=== PATIENT | female | born 1975 | race Caucasian/White ===

== ENCOUNTER → 2018-01-20 | Outpatient (CLI) | payer BC ==
[~2018-01-20] MED LIST: ACHD5005 PO; CRS350T; CYCL10TA9 PO; LEVO125T6 PO; LEVO150T6 PO; NAPR-243 PO; TRM50T PO; [UNRECOGNIZED DRUG - CODE] PO
--- NOTE | 2018-01-20 11:45 | Diagnostic Imaging Report ---
INDICATION: Right upper quadrant abdominal pain. Gallbladder sonography is performed in the routine fashion. The liver shows normal echogenicity with no focal lesions. Portal vein is patent with flow towards the liver in the normal direction. The gallbladder contains a large 2.3 cm nonmobile stone. There is moderate gallbladder wall thickening with some sludge in the gallbladder. Common duct measured 4.9 mm. Pancreas was unremarkable to the extent seen. The right kidney was normal and measured 11.0 cm in length. There is no ascites. Sonographic Shrestha sign was reported negative. IMPRESSION: Large non-mobile stone in the gallbladder with associated gallbladder wall thickening. There was no biliary dilatation. If there is clinical suspicion for acute cholecystitis, consider nuclear hepatobiliary study as clinically warranted. Dictated by: Dictated on workstation # [id number]
== END ==
LOC: RAD 10:12
PROVIDERS: ATTEND Nurse Practitioner Community Health
DX: K80.20 Calculus of gallbladder without cholecystitis without obstruction (principal); K82.8 Other specified diseases of gallbladder
CPT/HCPCS: 76705

== ENCOUNTER → 2018-01-20 | Outpatient (CLI) | payer BC | END | disposition home or self-care (01) | LOC: PREOP 15:54 | PROVIDERS: ATTEND Surgery | DX: Z01.818 Encounter for other preprocedural examination (principal) ==

== ENCOUNTER 2018-01-21 08:49 | Day surgery (SDC) | payer BC ==
[~2018-01-21] VITALS: Ht 165.1 cm; Wt 50.3 kg
[~2018-01-21 08:49] MED LIST changes: -ACHD5005 PO; -CYCL10TA9 PO; -LEVO150T6 PO; -[UNRECOGNIZED DRUG - CODE] PO
--- NOTE | 2018-01-21 09:00 | Progress Note-Pre Operative ---
Pre-Operative Progress Note H&P Reviewed The H&P was reviewed, patient examined and no changes noted. Date Seen by Provider: Jan 21, 2018 Time Seen by Provider: 08:25 Date H&P Reviewed: Jan 21, 2018 Time H&P Reviewed: 09:00 Pre-Operative Diagnosis: Gallstone with acute cholecystitis KYLE SINGLETON MD Jan 21, 2018 09:00
[2018-01-21 09:15] VITALS: BP 98/64
[2018-01-21] MEDS: LACTATED RINGERS 1,000 ML IV PRN ×3 (09:30→13:15)
--- OUTSIDE RECORDS SUMMARY | 2018-01-21 09:32 | XMS REPORT ---
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 Name Role Phone ENRIQUETA CHRISTY Unavailable PROBLEMS Type Condition ICD9-CM Code SHG86-QH Code Onset Dates Condition Status SNOMED Code Problem Other chronic pain G89.29 Active 05240756 Problem Neuropathy G62.9 Active 153015572 Problem Weight loss R63.4 Active 937505791 Problem Hypothyroid E03.9 Active 99359288 Problem Postablative hypothyroidism E89.0 Active 682064019 Problem Financial problems Z59.8 Active 940077135 ALLERGIES No Information ENCOUNTERS Encounter Location Date Diagnosis [place] [address] [address] Jun, Postablative hypothyroidism E89.0 [place] [address] [address] 28 May, 2017 Postablative hypothyroidism E89.0 ; Screening, lipid Z13.220 ; Neuropathy G62.9 ; Radiculopathy affecting upper extremity M54.10 ; Low back pain M54.5 and Other chronic pain G89.29 [place] [address] [place] [id number] [place] [address]- [address] Oct, Hypothyroid E03.9 ; Ganglion cyst of right foot M67.471 and Encounter for screening mammogram for breast cancer Z12.31 [place] [address] [address]- [address] Sep, Postablative hypothyroidism E89.0 [place] [address] [place] [id number] [place] [address]- 5502 Sep, Hypothyroid E03.9 [place] [address] [place] [id number] [place] [address] 75497- 9704 Jun, Postablative hypothyroidism E89.0 [facility] [address] [place] [id number] [place] [address] 10930- 6261 Jun, [facility] [address] [place] [id number] [place] [address] 80134- 4436 Jun, Hypothyroid E03.9 [facility] [address] [place] [id number] [place] [address] 9[address]77- 0198 Jun, Postablative hypothyroidism E89.0 [facility] [address] [place] [id number] [place] [address] 44016- 6891 Mar, [facility] [address] [place] [id number] [place] [address] 94719- 2289 Mar, [facility] [address] [place] [id number] [place] [address] 61497- 5258 Mar, Hypothyroid E03.9 [facility] [address] [place] [id number] [place] [address] 74[address]- 1490 Dec, [facility] [address] [place] [id number] [place] [address] -0139 Nov, Food poisoning, accidental or unintentional, initial encounter T62.91XA [facility] [address] [place] [id number] [place] [address] 15825- 9431 Nov, [facility] [address] [place] [id number] [place] [address] 35020- 2207 Oct, Hypothyroid E03.9 ; Weight loss R63.4 and Financial problems Z59.8 [facility] [address] [place] [id number] [place] [address]64- 8192 Jul, Gastroenteritis K52.9 [facility] [address] [place] [id number] [place] [address] 66029- 1225 Apr, Hypothyroid E03.9 [facility] [address] [place] [address]- [address] 14 Apr, 2015 Postablative hypothyroidism E89.0 and Upper respiratory infection J06.9 [facility] [address] [address]- 113[address] Jan, [facility] [address] [address]- 2602 Jan, [facility] [address] 25334- 2733 Dec, [facility] [address] [address]- 2441 Dec, Cannabis abuse 305.20 and Major depression, recurrent 296.30 [facility] [address] [address]- [address] Dec, Fatigue 780.79 ; Weakness 780.79 ; Hoarseness of voice 784.42 ; Shortness of breath 786.05 ; Hypothyroid 244.9 ; Cervicalgia 723.1 ; Depression 311 ; Insomnia 780.52 and Hard of hearing 389.9 [facility] [address] [place] [id number] [place] [address]129- 2009 Jul, [facility] [address] 0[address]- 1068 Jul, [facility] [address] [place] [id number] [place] [address] 29302- 0804 Mar, [facility] [address] [place] [id number] [place] [address] 60348- 5228 Mar, [facility] [address] [address]- 7948 Jan, [facility] [address] 8[address]- 1667 Jan, [facility] [address] [place] [id number] [place] [address] 27402- 3321 Jan, [facility] [address] [place] [address]- 7417 Jan, [facility] [place] [facility] [address] [id number] [place] [address]- 2922 Dec, [facility] [place] [facility] [address] [id number] [place] [address]- 5743 Dec, [facility] [place] [facility] [address] [id number] [place] [address]- 5083 Dec, [facility] [place] [facility] [address] [id number] [place] [address]- 1461 Dec, [facility] [place] [facility] [address] [id number] [place] [address]- 4984 Nov, [facility] [place] [facility] [address] [id number] [place] [address]- 9046 Nov, [facility] [place] [facility] [address] [id number] [place] [address]- 8248 Nov, [facility] [place] [facility] [address] [id number] [place] [address]- 6404 Nov, [facility] [place] [facility] [address] [id number] [place] [address]- 2317 Nov, [facility] [place] [facility] [address] [id number] [place] [address]- 0925 Oct, [facility] [place] [facility] [address] [id number] [place] [address]- 9733 Oct, [facility] [place] [facility] [address] [id number] [place] [address]- 8290 Oct, [facility] [place] [facility] [address] [id number] [place] [address]- 2451 Oct, [facility] [place] [facility] [address] [id number] [place] [address]- 7537 Oct, [facility] [place] [facility] [address] [id number] [place] [address]- 0692 Oct, [facility] [place] [facility] [address] [id number] [place] [address]- 4954 Sep, [facility] [place] [facility] [address] [id number] [place] [address]- 7031 Sep, [facility] [place] [facility] [address] [id number] [place] [address]- 4273 Sep, [facility] [place] [facility] [address] [id number] [place] [address]- 5298 Sep, [facility] [place] [facility] [address] [id number] [place] [address]- 1475 August, [facility] [place] [facility] [address] [id number] [place] [address]- 8596 August, [facility] [place] [facility] [address] [id number] [place] [address]- 7816 Jul, [facility] [place] [facility] [address] [id number] [place] [address]- 5918 Jul, [facility] [place] [facility] [address] [id number] [place] [address]- 9914 Jul, [facility] [place] [facility] [address] [id number] [place] [address]- 7765 Jul, [facility] [place] [facility] [address] [id number] [place] [address]- 9942 Jul, [facility] [place] [facility] [address] [id number] [place] [address]- 4545 Jun, [facility] [place] [facility] [address] [id number] [place] [address]- 8609 Jun, [facility] [place] [facility] [address] [id number] [place] [address]- 9915 May, [facility] [place] [facility] [address] [id number] [place] [address]- 5859 May, [facility] [place] [facility] [address] [id number] [place] [address]- 9936 May, [facility] [place] [facility] [address] [id number] [place] [address]- 5327 May, [facility] [place] [facility] [address] [id number] [place] [address] Apr, [facility] [place] [facility] [address] [id number] [place] [address]- 7173 Apr, [facility] [place] [facility] [address] [id number] [place] [address]- 2841 Apr, [facility] [place] [facility] [address] [id number] [place] [address]- 1474 Apr, [facility] [place] [facility] [address] [id number] [place] [address]- 4370 Apr, [facility] [place] [facility] [address] [id number] [place] [address]- 7338 Apr, [facility] [place] [facility] [address] [id number] [place] [address]- 5386 Mar, [facility] [place] [facility] [address] [id number] [place] [address]- 9290 Mar, [facility] [place] [facility] [address] [facility] [id number] [place] [address]- 9586 Mar, [facility] [place] [facility] [address] [id number], [place] [address]- 4784 Mar, [facility] [place] [facility] [address] [id number], [place] [address]- 8662 Jan, [facility] [place] [facility] [address] [id number], [place] [address]- 3407 Jan, [facility] [place] [facility] [address] [id number], [place] [address]- 4561 Jan, [facility] [place] [facility] [address] [facility] [id number] [place] [address]- 5914 Jan, [facility] [place] [facility] [address] [id number] [place] [address]- 9805 Dec, [facility] [place] [facility] [address] [id number] [place] [address]- 0866 Dec, [facility] [place] [facility] [address] [id number] [place] [address]- 3056 Nov, [facility] [place] [facility] [address] [id number] [place] [address]- 5988 Nov, [facility] [place] [facility] [address] [id number] [place] [address]- 0026 Nov, [facility] [place] [facility] [address] [id number] [place] [address]- 4603 Nov, [facility] [place] [facility] [address] [id number] [place] [address]- 1516 Nov, [facility] [place] [facility] [address] [id number] [place] [address]- 2487 Nov, [facility] [place] [facility] [address] [id number] [place] [address]- 3458 Nov, [facility] [place] [facility] [address] [id number] [place] [address]- 8889 Nov, [facility] [place] [facility] [address] [id number] [place] [address]- 7680 Oct, [facility] [place] [facility] [address] [id number] [place] [address]- 0924 Oct, [facility] [place] [facility] [address] [id number] [place] [address]- 3788 Sep, [facility] [place] [facility] [address] [id number] [place] [address]- 3907 Sep, [facility] [place] [facility] [address] [id number] [place] [address]- 5615 August, [facility] [place] [facility] [address] [id number] [place] [address]- 8239 August, [facility] [address] [id number] [place] [address]- 6396 Jun, [facility] [place] [facility] [address] [id number] [place] [address]- 2924 Jun, [facility] [place] [facility] [address] [id number] [place] [address]- 0682 Jun, [facility] [place] [facility] [address] [id number] [place] [address]- 8240 Jun, [facility] [address] [id number] [place] [address]- 0409 May, [facility] [place] [facility] [address] [id number] [place] [address]- 2916 May, [facility] [address] [id number] [place] [address]- 8645 Apr, [facility] [place] [facility] [address] [id number] [place] [address]- 3727 Apr, [facility] [address] [id number] [place] [address]- 7066 Apr, [facility] [address] [id number] [place] [address]- 5057 Mar, [facility] [place] [facility] [address] [id number] [place] [address]- 7441 Mar, [facility] [place] [facility] [address] [id number], [place] [address]- 2339 Mar, [facility] [place] [facility] [address] [id number] [place] [address]- 4988 Mar, [facility] [place] [facility] [address] [id number] [place] [address]- 1067 Mar, [facility] [place] [facility] [address] [id number] [place] [address]- 5229 Mar, [facility] [place] [facility] [address] [id number] [place] [address]- 6720 Feb, [facility] [place] [facility] [address] [id number] [place] [address]- 8494 Feb, [facility] [place] [facility] [address] [id number] [place] [address]- 1933 Feb, [facility] [place] [facility] [address] [id number] [place] [address]- 7073 Feb, [facility] [place] [facility] [address] [id number] [place] [address]- 3858 Feb, [facility] [place] [facility] [address] [id number] [place] [address]- 7918 Feb, [facility] [place] [facility] [address] [id number] [place] [address]- 8927 Feb, [facility] [place] [facility] [address] [id number] [place] [address]- 4457 Feb, [facility] [place] [facility] [address] [id number] [place] [address]- 6268 Feb, [facility] [place] [facility] [address] [id number] [place] [address]- 5501 Feb, [facility] [place] [facility] [address] [facility] [id number] [place] [address]- 8682 Feb, [facility] [place] [facility] [address] [id number] [place] [address]- 0787 Feb, [facility] [place] [facility] [address] [id number], [place] [address]- 8456 Jan, [facility] [place] [facility] [address] [id number] [place] [address]- 4077 Jan, [facility] [place] [facility] [address] [facility] [id number] [place] [address]- 2444 Sep, [facility] [place] [facility] [address] [id number] [place] [address]- 3865 August, [facility] [place] [facility] [address] [id number] [place] [address]- 9270 August, [facility] [address] [id number] [place] [address]- 8257 August, [facility] [address] [id number] [place] [address]- 3956 August, [facility] [address] [id number] [place] [address]- 5384 August, [facility] [address] [id number] [place] [address]- 0882 August, [facility] [address] [id number] [place] [address]- 0680 August, [facility] [address] [id number] [place] [address]- 0997 August, [facility] [address] [id number] [place] [address]- 2642 August, [facility] [address] [id number] [place] [address]- 5804 August, [facility] [address] [id number] [place] [address]- 8804 Jul, [facility] [address] [id number] [place] [address]- 9208 May, [facility] [address] [id number] [place] [address]- 2953 Apr, [facility] [address] [id number] [place] [address]- 3491 Apr, [facility] [address] [id number] [place] [address]- 0116 Mar, [facility] [address] [id number] [place] [address]- 2729 Feb, [facility] [address] [id number], [place] [address]- 2546 Feb, [facility] [address] [place] [address] [id number], [place] [address]- 2546 Jan, [facility] [id number], [place] [address]- 2546 May, [facility] [id number], [place] [address]- 2546 Feb, [facility] [id number], [place] [address]- 2546 Mar, [facility] [id number], [place] [address]- 2546 Mar, [facility] [id number], [place] [address]- 2546 Jul, [facility] [id number], [place] [address]- 2546 Jun, IMMUNIZATIONS No Known Immunizations SOCIAL HISTORY Never Assessed REASON FOR VISIT Refill request PLAN OF CARE VITAL SIGNS MEDICATIONS Medication Instructions Dosage Frequency Start Date End Date Duration Status Levothyroxine Sodium 150 MCG Orally Once a day 1 tablet on an empty stomach in the morning 24h Mar, 90 days Active RESULTS No Results PROCEDURES No Known procedures INSTRUCTIONS MEDICATIONS ADMINISTERED No Known Medications MEDICAL (GENERAL) HISTORY Type Description Date Medical History Herpes of left eye Medical History Weight loss 40 pounds 2011 unintentional Medical History hypothyroid Medical History anxiety and depression Medical History C5 and C6 herniated cervical disc Surgical History Tubal ligation Surgical History C6 and C7 titanium plate Surgical History Neck fusion Surgical History Esophagogastrudoduenscopy 04/16/2012 mild gastritis Surgical History Colonscopy 04/26/[address] Bonilla Hospitalization History surgery
--- OUTSIDE RECORDS SUMMARY | 2018-01-21 09:33 | XMS REPORT ---
Author Author ENRIQUETA CHRISTY Organization [facility] Address [address] [place] [address] Care Team Providers Care Cell Room Operator Name Role Phone ENRIQUETA CHRISTY Unavailable PROBLEMS Type Condition ICD9-CM Code USO42-YJ Code Onset Dates Condition Status SNOMED Code Problem Other chronic pain G89.29 Active 52327017 Problem Neuropathy G62.9 Active 614823810 Problem Weight loss R63.4 Active 531768674 Problem Hypothyroid E03.9 Active 23137519 Problem Postablative hypothyroidism E89.0 Active 721924942 Problem Financial problems Z59.8 Active 096638814 ALLERGIES Substance Reaction Event Type Date Status Trazodone HCl jittery Drug Allergy Oct, Active ENCOUNTERS Encounter Location Date Diagnosis [place] [id number] [place] [address] 67641- 0849 Jun, Postablative hypothyroidism E89.0 [place] [address] [place] [address] 35539- 1588 May, Postablative hypothyroidism E89.0 ; Screening, lipid Z13.220 ; Neuropathy G62.9 ; Radiculopathy affecting upper extremity M54.10 ; Low back pain M54.5 and Other chronic pain G89.29 [facility] [id number] [place] [address] 16304- 3750 Oct, Hypothyroid E03.9 ; Ganglion cyst of right foot M67.471 and Encounter for screening mammogram for breast cancer Z12.31 [place] [address] [place] [address] 10583- 3684 Sep, Postablative hypothyroidism E89.0 [place] [address] [place] [id number] [place] [address] 72667- 7630 Sep, Hypothyroid E03.9 [facility] [address] [place] [id number] [place] [address] 95396- 7747 Jun, Postablative hypothyroidism E89.0 [facility] [address] [place] [id number] [place] [address] 58154- 2733 Jun, [facility] [address] [place] [id number] [place] [address] 36289- 6332 Jun, Hypothyroid E03.9 [facility] [address] [place] [id number] [place] [address] 18567- 7580 Jun, Postablative hypothyroidism E89.0 [facility] [address] [place] [id number] [place] [address] 05625- 4507 Mar, [facility] [address] [place] [address] [id number] [place] [address] 87218- 4206 Mar, [facility] [address] [place] [id number] [place] [address] 21554- 5724 Mar, Hypothyroid E03.9 [facility] [address] [place] [id number] [place] [address] 10117- 1707 Dec, [facility] [address] [place] [address] [id number] [place] [address] 59235 -0124 Nov, Food poisoning, accidental or unintentional, initial encounter T62.91XA [facility] [address] [place] [id number] [place] [address] 81409- 0158 Nov, [facility] [address] [place] [id number] [place] [address] 39801- 9288 Oct, Hypothyroid E03.9 ; Weight loss R63.4 and Financial problems Z59.8 [facility] [address] [place] [id number] [place] [address] 54002- 9758 Jul, Gastroenteritis K52.9 [facility] [address] [place] [id number] [place] [address] 88272- 6333 Apr, Hypothyroid E03.9 [facility] [address] [place] [id number] [place] [address] 38496- 4734 14 Apr, 2015 Postablative hypothyroidism E89.0 and Upper respiratory infection J06.9 [facility] [address] [place] [id number] [place] [address] 86133- 7367 Jan, [facility] [address] 28117- 8021 Jan, [facility] [address] [place] [id number] [place] [address] 27035- 5210 Dec, [facility] [address] 54108- 4381 Dec, Cannabis abuse 305.20 and Major depression, recurrent 296.30 [facility] [address] [place] [id number] [place] [address] 20819- 3657 Dec, Fatigue 780.79 ; Weakness 780.79 ; Hoarseness of voice 784.42 ; Shortness of breath 786.05 ; Hypothyroid 244.9 ; Cervicalgia 723.1 ; Depression 311 ; Insomnia 780.52 and Hard of hearing 389.9 [facility] [address] [place] [id number] [place] [address] 50687- 8443 Jul, [facility] [address] [place] [id number] [place] [address] 87209- 3550 Jul, [facility] [address] [place] [id number] [place] [address] 18274- 5492 Mar, [facility] [address] [place] [id number] [place] [address] 28369- 0156 Mar, [facility] [address] 27939- 6384 Jan, [facility] [address] [place] [id number] [place] [address] 39915- 7888 Jan, [facility] [address] [place] [id number] [place] [address] 48991- 0575 Jan, [facility] [place] [facility] [address] [id number] [place] [address]- 3964 Jan, [facility] [place] [facility] [address] [id number] [place] [address]- 9489 Dec, [facility] [place] [facility] [address] [id number] [place] [address]- 8942 Dec, [facility] [place] [facility] [address] [id number] [place] [address]- 6754 Dec, [facility] [place] [facility] [address] [id number] [place] [address]- 6854 Dec, [facility] [place] [facility] [address] [id number] [place] [address]- 8763 Nov, [facility] [place] [facility] [address] [id number] [place] [address]- 4181 Nov, [facility] [place] [facility] [address] [id number] [place] [address]- 0255 Nov, [facility] [place] [facility] [address] [id number] [place] [address]- 3926 Nov, [facility] [place] [facility] [address] [id number] [place] [address]- 0219 Nov, [facility] [place] [facility] [address] [id number] [place] [address]- 9811 Oct, [facility] [place] [facility] [address] [id number] [place] [address]- 0428 Oct, [facility] [place] [facility] [address] [id number] [place] [address]- 0339 Oct, [facility] [place] [facility] [address] [id number] [place] [address]- 2335 Oct, [facility] [place] [facility] [address] [id number] [place] 8235 Oct, [facility] [place] [facility] [address] [id number] [place] [address]- 8180 Oct, [facility] [place] [facility] [address] [id number] [place] [address]- 4707 Sep, [facility] [place] [facility] [address] [id number] [place] [address]- 7907 Sep, [facility] [place] [facility] [address] [id number] [place] [address]- 6910 Sep, [facility] [place] [facility] [address] [id number] [place] [address]- 2044 Sep, [facility] [place] [facility] [address] [id number] [place] [address]- 5178 August, [facility] [place] [facility] [address] [id number] [place] [address]- 1863 August, [facility] [place] [facility] [address] [id number] [place] [address]- 8106 Jul, [facility] [place] [facility] [address] [id number] [place] [address]- 7404 Jul, [facility] [place] [facility] [address] [id number] [place] [address]- 4376 Jul, [facility] [place] [facility] [address] [id number] [place] [address]- 8695 Jul, [facility] [place] [facility] [address] [id number] [place] [address]- 3487 Jul, [facility] [place] [facility] [address] [id number] [place] [address]- 3889 Jun, [facility] [place] [facility] [address] [id number] [place] [address]- 3711 Jun, [facility] [place] [facility] [address] [id number] [place] [address]- 8965 May, [facility] [place] [facility] [address] [id number] [place] [address]- 4991 May, [facility] [place] [facility] [address] [id number] [place] [address]- 1843 May, [facility] [place] [facility] [address] [id number] [place] [address]- 7592 May, [facility] [place] [facility] [address] [id number] [place] [address]- 5998 Apr, [facility] [place] [facility] [address] [id number] [place] [address]- 5213 Apr, [facility] [place] [facility] [address] [id number] [place] [address]- 6541 Apr, [facility] [place] [facility] [address] [id number] [place] [address]- 9799 Apr, [facility] [place] [facility] [address] [facility] [id number] [place] [address]- 6058 Apr, [facility] [place] [facility] [address] [id number] [place] [address]- 4063 Apr, [facility] [place] [facility] [address] [id number] [place] [address]- 5822 Mar, [facility] [place] [facility] [address] [id number] [place] [address]- 8384 Mar, [facility] [place] [facility] [address] [facility] [id number] [place] [address]- 4350 Mar, [facility] [place] [facility] [address] [id number] [address]- 7798 Mar, [facility] [place] [facility] [address] [id number] [place] [address]- 3092 Jan, [facility] [place] [facility] [address] [id number] [place] [address]- 4477 Jan, [facility] [place] [facility] [address] [id number] [place] [address]- 2825 Jan, [facility] [place] [facility] [address] [id number] [address]- 1730 Jan, [facility] [place] [facility] [address] [id number] [place] [address]- 8574 Dec, [facility] [place] [facility] [address] [id number] [place] [address]- 8096 Dec, [facility] [place] [facility] [address] [id number] [place] [address]- 2043 Nov, [facility] [place] [facility] [address] [id number] [place] [address]- 7972 Nov, [facility] [place] [facility] [address] [id number] [place] [address]- 3364 Nov, [facility] [place] [facility] [address] [id number] [place] [address]- 6545 Nov, [facility] [place] [facility] [address] [id number] [place] [address]- 6697 Nov, [facility] [place] [facility] [address] [id number] [place] [address]- 0885 Nov, [facility] [place] [facility] [address] [id number] [place] [address]- 5512 Nov, [facility] [place] [facility] [address] [id number] [place] [address]- 0285 Nov, [facility] [place] [facility] [address] [id number] [place] [address]- 5569 Oct, [facility] [place] [facility] [address] [id number] [place] [address]- 6592 Oct, [facility] [place] [facility] [address] [id number] [place] [address]- 5052 Sep, [facility] [place] [facility] [address] [id number] [place] [address]- 9558 Sep, [facility] [place] [facility] [address] [id number] [place] [address]- 2510 August, [facility] [place] [facility] [address] [id number] [place] [address]- 2546 August, [facility] [address] [id number] [place] [address]- 9746 Jun, [facility] [address] [id number] [place] [address]- 2546 Jun, [facility] [address] [id number] [place] [address] 2546 Jun, [facility] [address] [id number] [place] [address]- 2546 Jun, [facility] [address] [id number] [place] [address]- 4166 May, [facility] [address] [id number] [place] [address]- 2546 May, [facility] [address] [id number] [place] [address]- 2232 Apr, [facility] [address] [id number] [place] [address]- 9183 Apr, [facility] [address] [id number] [place] [address]- 0276 Apr, [facility] [address] [id number] [place] [address]- 5386 Mar, [facility] [address] [id number] [place] [address]- 2546 Mar, [facility] [address] [id number] [place] [address]- 2546 Mar, [facility] [place] [facility] [address] [id number] [place] [address]- 2546 Mar, [facility] [address] [id number] [place] [address]- 2546 Mar, [facility] [address] [id number] [place] [address]- 3498 Mar, [facility] [place] [facility] [address] [id number] [place] [address]- 4729 Feb, [facility] [place] [facility] [address] [id number] [place] [address]- 7520 Feb, [facility] [place] [facility] [address] [id number] [place] [address]- 0598 Feb, [facility] [place] [facility] [address] [id number] [place] [address]- 0610 Feb, [facility] [place] [facility] [address] [id number] [place] [address]- 2581 Feb, [facility] [place] [facility] [address] [id number] [place] [address]- 6392 Feb, [facility] [place] [facility] [address] [facility] [id number] [place] [address]- 2377 Feb, [facility] [place] [facility] [address] [id number] [address]- 7356 Feb, [facility] [place] [facility] [address] [id number] [place] [address]- 4136 Feb, [facility] [place] [facility] [address] [id number][place] [address]- 7279 Feb, [facility] [place] [facility] [address] [id number][place] [address]- 7641 Feb, [facility] [place] [facility] [address] [id number], [place] [address]- 7474 Feb, [facility] [place] [facility] [address] [id number][place] [address]- 2410 Jan, [facility] [place] [facility] [address] [id number][place] [address]- 5499 Jan, [facility] [place] [facility] [address] [facility] [id number][place] [address]- 3662 Sep, [facility] [place] [facility] [address] [id number] [place] [address]- 3285 August, [facility] [address] [id number] [place] [address]- 5303 August, [facility] [place] [facility] [address] [id number] [place] [address]- 2235 August, [facility] [address] [id number] [place] [address]- 5306 August, [facility] [place] [facility] [address] [id number] [place] [address]- 0156 August, [facility] [address] [id number] [place] [address]- 5537 August, [facility] [place] [facility] [address] [id number] [place] [address]- 5586 August, [facility] [address] [id number] [place] [address]- 6027 August, [facility] [place] [facility] [address] [id number] [place] [address]- 1400 August, [facility] [place] [facility] [address] [id number] [place] [address]- 3692 August, [facility] [address] [id number] [place] [address]- 7400 Jul, [facility] [place] [facility] [address] [id number] [place] [address]- 8656 May, [facility] [place] [facility] [address] [id number] [place] [address]- 4209 Apr, [facility] [place] [facility] [address] [id number] [place] [address]- 9853 Apr, [facility] [place] [facility] [address] [id number] [place] [address]- 1886 Mar, [facility] [place] [facility] [address] [id number] [place] [address]- 9806 Feb, [facility] [address] [id number] [address]- 2546 Feb, [facility] [id number] [place] [address] 22366- 2546 Jan, [facility] [address] [address]- 2546 May, [facility] [address] [place] [id number] [place] [address] 62793- 2546 Feb, [facility] [address] [place] [id number] [place] [address] 87274- 2546 Mar, [place] [address] [place] [id number] [place] [address] 04141- 2546 Mar, [facility] [address] [id number] [place] [address] 88253- 2546 Jul, [facility] [address] [place] [address] 92050- 2546 Jun, IMMUNIZATIONS No Known Immunizations SOCIAL HISTORY Never Assessed REASON FOR VISIT 3 month follow up on thyroid. , Pt has a knot on the bottom of her right foot. , pt thinks she has some sort of stomach issue if she eats approx 1 hr before bed. She will often times vomit to get relieved. MAIRA Connelly PLAN OF CARE Activity Details Follow Up 6 Months Reason:hypothyroid VITAL SIGNS Height 65 in 2016-11-03 Weight 115.6 lbs 2016-11-03 Temperature 98.4 degrees Fahrenheit 2016-11-03 Heart Rate 60 bpm 2016-11-03 Respiratory Rate 18 2016-11-03 BMI 19.23 kg/m2 2016-11-03 Blood pressure systolic 116 mmHg 2016-11-03 Blood pressure diastolic 80 mmHg 2016-11-03 MEDICATIONS Medication Instructions Dosage Frequency Start Date End Date Duration Status Levothyroxine Sodium 150 MCG Orally Once a day 1 tablet on an empty stomach in the morning 24h 30 Mar, 2016 90 days Active Flonase 50 MCG/DOSE Nasally 2 times a day 1 spray in each nostril 12h 29 Dec, 2014 30 day(s) Active Cyclobenzaprine HCl 10 MG Orally Once a day 1 tablet at bedtime for muscle tension 24h Nov, 30 days Active RESULTS Name Result Date Reference Range Mammogram, Bilateral Screening PROCEDURES No Known procedures INSTRUCTIONS MEDICATIONS ADMINISTERED [...]
--- OUTSIDE RECORDS SUMMARY | 2018-01-21 09:33 | XMS REPORT ---
Author Author ENRIQUETA CHRISTY [facility] Address [address] [place] [address] Care Team Providers Care Road Freight Conductor Name Role Phone ENRIQUETA CHRISTY Unavailable PROBLEMS Type Condition ICD9-CM Code [id number] Code Onset Dates Condition Status SNOMED Code Problem Cannabis dependence, unspecified abuse 304.30 Active 44400887 Problem Family history of other malignant neoplasm V16.49 Active 584838830 Problem Postablative hypothyroidism E89.0 Active 805090775 Problem Hypothyroid E03.9 Active 13497816 Problem Cervicalgia 723.1 Active 58288950 Problem Nondependent tobacco use disorder 305.1 Active 948686238 Problem Weight loss R63.4 Active 836017074 Problem Financial problems Z59.8 Active 145368249 ALLERGIES No Known Allergies SOCIAL HISTORY No smoking Hx information available PLAN OF CARE VITAL SIGNS MEDICATIONS Medication Instructions Dosage Frequency Start Date End Date Duration Status Cyclobenzaprine HCl 10 MG Orally Once a day 1 tablet at bedtime for muscle tension 24h Nov, 30 days Active RESULTS No Results PROCEDURES No Known procedures IMMUNIZATIONS No Known Immunizations
--- OUTSIDE RECORDS SUMMARY | 2018-01-21 09:33 | XMS REPORT ---
Author Author ENRIQUETA CHRISTY [facility] [employer] Address Unknown Phone Unavailable Care Team Providers Care Manager Print Name Role Phone ENRIQUETA CHRISTY CP Unavailable Allergies, Adverse Reactions, Alerts Substance Reaction Event Type Trazodone HCl jittery Drug Allergy Problems Problem Type Condition Code Onset Dates Condition Status Problem Nondependent tobacco use disorder 305.1 Active Problem Cannabis dependence, unspecified abuse 304.30 Active Problem Cervicalgia 723.1 Active Assessment Postablative hypothyroidism E89.0 Active Assessment Upper respiratory infection J06.9 Active Problem Family history of other malignant neoplasm V16.49 Active Problem Hypothyroidism, unspecified E03.9 Active Medications Medication Code System Code Instructions Start Date End Date Status Dosage Cipro [facility] [address]-36 500 MG Orally Twice a day Apr 26, 2015 May 06, 2015 1 tablet Flonase [facility] [address]-55 50 MCG/DOSE Nasally 2 times a day Jan 09, 2015 1 spray in each nostril Synthroid [facility] 80375145301 100 MCG 1 Tablet by Oral route 1 time per day Procedures Procedure Coding System Code Date ASSAY OF FREE THYROXINE CPT-4 51581 Apr 26, 2015 Office Visit, Est Pt., Level 3 CPT-4 43113 Apr 26, 2015 ASSAY THYROID STIM HORMONE CPT-4 36224 Apr 26, 2015 VENIPUNCT, ROUTINE* CPT-4 26205 Apr 26, 2015 Vital Signs Date/Time: Apr 26, 2015 Temperature 97.6 F Weight 119.3 lbs Height 65 in BMI 19.85 Index Blood Pressure Diastolic 55 mmHg Blood Pressure Systolic 80 mmHg Cardiac Monitoring Heart Rate 76 bpm Results Name Result Date Reference Range Unit Abnormality Flag ROUTINE VENIPUNCTURE TSH W/ FREE T4 ----T4,Free(Direct) 0.70 [id number] 0.82-1.77 ng/dL L ----TSH 30.070 [id number] 0.450-4.500 uIU/mL H Summary Purpose [employer] Submission
--- OUTSIDE RECORDS SUMMARY | 2018-01-21 09:33 | XMS REPORT ---
Author Author ENRIQUETA CHRISTY [facility] Address [address] [place] [address] Care Team Providers Care Plum Packer Name Role Phone ENRIQUETA CHRISTY Unavailable PROBLEMS Type Condition ICD9-CM Code SJV81-LV Code Onset Dates Condition Status SNOMED Code Problem Cervicalgia 723.1 Active 07689861 Problem Family history of other malignant neoplasm V16.49 Active 476125681 Problem Postablative hypothyroidism E89.0 Active 879961998 Problem Financial problems Z59.8 Active 107453684 Problem Cannabis dependence, unspecified abuse 304.30 Active 22428942 Problem Nondependent tobacco use disorder 305.1 Active 169418745 Problem Weight loss R63.4 Active 715658663 Problem Hypothyroid E03.9 Active [id number] ALLERGIES No Information SOCIAL HISTORY Never Assessed PLAN OF CARE VITAL SIGNS MEDICATIONS Medication Instructions Dosage Frequency Start Date End Date Duration Status Levothyroxine Sodium 150 MCG Orally Once a day 1 tablet on an empty stomach in the morning 24h 30 Mar, 2016 90 days Active RESULTS No Results PROCEDURES No Known procedures IMMUNIZATIONS No Known Immunizations MEDICAL (GENERAL) HISTORY Type Description Date Medical [...]
--- OUTSIDE RECORDS SUMMARY | 2018-01-21 09:33 | XMS REPORT ---
Author Author ENRIQUETA CHRISTY Organization [facility] Address [address] [place] [address] Care Team Providers Care Brim Curler Name Role Phone ENRIQUETA CHRISTY Unavailable PROBLEMS Type Condition ICD9-CM Code HAL05-PB Code Onset Dates Condition Status SNOMED Code Problem Other chronic pain G89.29 Active 85076641 Problem Neuropathy G62.9 Active 426753933 Problem Weight loss R63.4 Active 755034329 Problem Hypothyroid E03.9 Active 24119206 Problem Postablative hypothyroidism E89.0 Active 269019433 Problem Financial problems Z59.8 Active 939193020 ALLERGIES Substance Reaction Event Type Date Status Trazodone HCl jittery Drug Allergy May, Active ENCOUNTERS Encounter Location Date Diagnosis [place] [id number] [place] [address] 67195- 7704 Jun, Postablative hypothyroidism E89.0 [place] [id number] [place] [address] 01595- 7010 May, Postablative hypothyroidism E89.0 ; Screening, lipid Z13.220 ; Neuropathy G62.9 ; Radiculopathy affecting upper extremity M54.10 ; Low back pain M54.5 and Other chronic pain G89.29 [facility] [id number] [place] [address] 53548- 6831 Oct, Hypothyroid E03.9 ; Ganglion cyst of right foot M67.471 and Encounter for screening mammogram for breast cancer Z12.31 [place] [id number] [place] [address] 99130- 4049 Sep, Postablative hypothyroidism E89.0 [place] [address] [place] [id number] [place] [address] 41596- 8475 Sep, Hypothyroid E03.9 [facility] [address] [place] [id number] [place] [address] 39316- 9866 Jun, Postablative hypothyroidism E89.0 [facility] [address] [place] [address] [id number] [place] [address] 59471- 0487 Jun, [facility] [address] [place] [id number] [place] [address] 08477- 2101 Jun, Hypothyroid E03.9 [facility] [address] [place] [address] [id number] [place] [address] 79148- 5928 Jun, Postablative hypothyroidism E89.0 [facility] [address] 41365- 1922 Mar, [facility] [address] 38666- 3777 Mar, [facility] [address] [place] [id number] [place] [address] 77467- 4428 Mar, Hypothyroid E03.9 [facility] [address] [place] [address] [id number] [place] [address] 65588- 3032 Dec, [facility] [address] [place] [address] [id number] [place] [address] 97358 -2638 Nov, Food poisoning, accidental or unintentional, initial encounter T62.91XA [facility] [address] [place] [address] [id number] [place] [address] 25521- 8135 Nov, [facility] [address] [place] [address] [id number] [place] [address] 80349- 1162 Oct, Hypothyroid E03.9 ; Weight loss R63.4 and Financial problems Z59.8 [facility] [address] [place] [id number] [place] [address] 25569- 4662 Jul, Gastroenteritis K52.9 [facility] [address] [place] [id number] [place] [address] 68270- 2315 Apr, Hypothyroid E03.9 [facility] [address] [place] [address] [id number] [place] [address] 52797- 6265 Apr, Postablative hypothyroidism E89.0 and Upper respiratory infection J06.9 [facility] [address] [place] [id number] [place] [address] 12186- 9241 Jan, [facility] [address] 01456- 7547 Jan, [facility] [address] 57278- 3927 Dec, [facility] [address] 78687- 1218 Dec, Cannabis abuse 305.20 and Major depression, recurrent 296.30 [facility] [address] 87602- 8711 Dec, Fatigue 780.79 ; Weakness 780.79 ; Hoarseness of voice 784.42 ; Shortness of breath 786.05 ; Hypothyroid 244.9 ; Cervicalgia 723.1 ; Depression 311 ; Insomnia 780.52 and Hard of hearing 389.9 [facility] [address] [place] [id number] [place] [address] 66672- 4064 Jul, [facility] [address] [place] [id number] [place] [address] 81261- 8253 Jul, [facility] [address] [place] [id number] [place] [address] 87711- 7518 Mar, [facility] [address] [place] [id number] [place] [address] 26143- 8201 Mar, [facility] [address] 14869- 9689 Jan, [facility] [address] [place] [id number] [place] [address] 84767- 9456 Jan, [facility] [address] 35697- 0504 Jan, [facility] [place] [facility] [address] [id number] [place] [address]- 3266 Jan, [facility] [place] [facility] [address] [id number] [place] [address]- 7882 Dec, [facility] [place] [facility] [address] [id number] [place] [address]- 7876 Dec, [facility] [place] [facility] [address] [id number] [place] [address]- 9576 Dec, [facility] [place] [facility] [address] [id number] [place] [address]- 7452 Dec, [facility] [place] [facility] [address] [id number] [place] [address]- 5270 Nov, [facility] [place] [facility] [address] [id number] [place] [address]- 7624 Nov, [facility] [place] [facility] [address] [id number] [place] [address]- 1142 Nov, [facility] [place] [facility] [address] [id number] [place] [address]- 7783 Nov, [facility] [place] [facility] [address] [id number] [place] [address]- 3252 Nov, [facility] [place] [facility] [address] [id number] [place] [address]- 6510 Oct, [facility] [place] [facility] [address] [id number] [place] [address]- 9841 Oct, [facility] [place] [facility] [address] [id number] [place] [address]- 2906 Oct, [facility] [place] [facility] [address] [id number] [place] [address]- 4061 Oct, [facility] [place] [facility] [address] [id number] [place] [address]- 1310 Oct, [facility] [place] [facility] [address] [id number] [place] [address]- 8825 Oct, [facility] [place] [facility] [address] [id number] [place] [address]- 9819 Sep, [facility] [place] [facility] [address] [id number] [place] [address]- 8029 Sep, [facility] [place] [facility] [address] [id number] [place] [address]- 6210 Sep, [facility] [place] [facility] [address] [id number] [place] [address]- 0237 Sep, [facility] [place] [facility] [address] [id number] [place] [address]- 4869 August, [facility] [place] [facility] [address] [id number] [place] [address]- 4227 August, [facility] [place] [facility] [address] [id number] [place] [address]- 6431 Jul, [facility] [place] [facility] [address] [id number] [place] [address]- 3540 Jul, [facility] [place] [facility] [address] [id number] [place] [address]- 6740 Jul, [facility] [place] [facility] [address] [facility] [id number] [place] [address]- 9981 Jul, [facility] [place] [facility] [address] [id number] [place] [address]- 7677 Jul, [facility] [place] [facility] [address] [id number] [place] [address]- 4744 Jun, [facility] [place] [facility] [address] [id number] [place] [address]- 8955 Jun, [facility] [place] [facility] [address] [id number] [place] [address]- 1862 May, [facility] [place] [facility] [address] [id number] [place] [address]- 0035 May, [facility] [place] [facility] [address] [id number] [place] [address]- 4664 May, [facility] [place] [facility] [address] [id number] [place] [address]- 2851 May, [facility] [place] [facility] [address] [id number] [place] 9976 Apr, [facility] [place] [facility] [address] [id number] [place] [address]- 6148 Apr, [facility] [place] [facility] [address] [id number] [place] [address]- 0363 Apr, [facility] [place] [facility] [address] [id number] [place] [address]- 6472 Apr, [facility] [place] [facility] [address] [id number] [place] [address]- 3926 Apr, [facility] [place] [facility] [address] [id number] [place] [address]- 1144 Apr, [facility] [place] [facility] [address] [id number] [place] [address]- 0300 Mar, [facility] [place] [facility] [address] [id number] [place] [address]- 2079 Mar, [facility] [place] [facility] [address] [facility] [id number] [address]- 0036 Mar, [facility] [place] [facility] [address] [id number] [address]- 5603 Mar, [facility] [place] [facility] [address] [id number] [place] [address]- 3680 Jan, [facility] [place] [facility] [address] [id number] [place] [address]- 0473 Jan, [facility] [place] [facility] [address] [id number] [address]- 8162 Jan, [facility] [place] [facility] [address] [id number] [address]- 4318 Jan, [facility] [place] [facility] [address] [id number] [place] [address]- 9092 Dec, [facility] [place] [facility] [address] [id number] [place] [address]- 9164 Dec, [facility] [place] [facility] [address] [id number] [place] [address]- 5064 Nov, [facility] [place] [facility] [address] [id number] [place] [address]- 6497 Nov, [facility] [place] [facility] [address] [id number] [place] [address]- 1710 Nov, [facility] [place] [facility] [address] [id number] [place] [address]- 8252 Nov, [facility] [place] [facility] [address] [id number] [place] [address]- 5878 Nov, [facility] [place] [facility] [address] [id number] [place] [address]- 2734 Nov, [facility] [place] [facility] [address] [id number] [place] [address]- 2916 Nov, [facility] [place] [facility] [address] [id number] [place] [address]- 5281 Nov, [facility] [place] [facility] [address] [id number] [place] [address]- 8171 Oct, [facility] [place] [facility] [address] [id number] [place] [address]- 0291 Oct, [facility] [place] [facility] [address] [id number] [place] [address]- 6856 Sep, [facility] [place] [facility] [address] [id number] [place] [address]- 8040 Sep, [facility] [place] [facility] [address] [id number] [place] [address]- 2592 August, [facility] [place] [facility] [address] [id number] [place] [address] 254 August, [facility] [address] [id number] [place] [address]- 6995 Jun, [facility] [place] [facility] [address] [id number] [place] [address]- 2546 Jun, [facility] [address] [id number] [place] [address] 2546 Jun, [facility] [place] [facility] [address] [id number] [place] [address]- 2546 Jun, [facility] [address] [id number] [place] [address]- 2169 May, [facility] [place] [facility] [address] [id number] [place] [address]- 4146 May, [facility] [address] [id number] [place] [address]- 5738 Apr, [facility] [address] [id number] [place] [address]- 4647 Apr, [facility] [address] [id number] [place] [address]- 3188 Apr, [facility] [address] [id number] [place] [address]- 1993 Mar, [facility] [place] [facility] [address] [id number] [place] [address]- 0386 Mar, [facility] [place] [facility] [address] [id number] [place] [address]- 2546 Mar, [facility] [place] [facility] [address] [id number] [place] [address]- 3106 Mar, [facility] [place] [facility] [address] [id number] [place] [address]- 2546 Mar, [facility] [place] [facility] [address] [id number] [place] [address]- 4936 Mar, [facility] [place] [facility] [address] [id number] [place] [address]- 5065 Feb, [facility] [place] [facility] [address] [id number] [place] [address]- 1784 Feb, [facility] [place] [facility] [address] [facility] [id number] [place] [address]- 7959 Feb, [facility] [place] [facility] [address] [id number] [place] [address]- 4661 Feb, [facility] [place] [facility] [address] [id number] [place] [address]- 3952 Feb, [facility] [place] [facility] [address] [id number] [place] [address], [place] [address]- 0065 Feb, [facility] [place] [facility] [address] [facility] [id number] [place] [address]- 5531 Feb, [facility] [place] [facility] [address] [id number] [address]- 2381 Feb, [facility] [place] [facility] [address] [id number] [address]- 0880 Feb, [facility] [place] [facility] [address] [facility] [id number] [address]- 4794 Feb, [facility] [place] [facility] [address] [id number] [address]- 4808 Feb, [facility] [place] [facility] [address] [id number] [address]- 3214 Feb, [facility] [place] [facility] [address] [id number] [address]- 8619 Jan, [facility] [place] [facility] [address] [id number] [address]- 9113 Jan, [facility] [place] [facility] [address] [facility] [id number] [address]- 3425 Sep, [facility] [place] [facility] [address] [id number] [place] [address]- 8940 August, [facility] [address] [id number] [place] [address]- 2258 August, [facility] [address] [id number] [place] [address]- 0770 August, [facility] [address] [id number] [place] [address]- 3556 August, [facility] [address] [id number] [place] [address]- 7622 August, [facility] [address] [id number] [place] [address]- 0138 August, [facility] [address] [id number] [place] [address]- 5176 August, [facility] [address] [id number] [place] [address]- 7204 August, [facility] [address] [id number] [place] [address]- 7881 August, [facility] [address] [id number] [place] [address]- 3112 August, [facility] [address] [id number] [place] [address]- 4502 Jul, [facility] [address] [id number] [place] [address]- 7471 May, [facility] [address] [id number] [place] [address]- 8144 Apr, [facility] [place] [facility] [address] [id number] [place] [address]- 7336 Apr, [facility] [place] [facility] [address] [id number] [place] [address]- 5406 Mar, [facility] [address] [id number] [place] [address]- 5710 Feb, [facility] [address] [id number] [address]- 2546 Feb, [facility] [id number] [address]- 2546 Jan, [facility] [id number] [address]- 2546 May, [facility] [address] [id number] [address]- 2546 Feb, [facility] [id number] [address] 2546 Mar, [facility] [id number] [address]- 2546 Mar, [facility] [id number] [address] 2546 Jul, [facility] [id number] [address] 2546 Jun, IMMUNIZATIONS No Known Immunizations SOCIAL HISTORY Never Assessed REASON FOR VISIT Hypothyroid- Megan Ortiz RN PLAN OF CARE Activity Details Follow Up 6 Months Reason:hypothyroid VITAL SIGNS Height 65 in 2017-06-10 Weight 110 lbs 2017-06-10 Temperature 98.7 degrees Fahrenheit 2017-06-10 Heart Rate 76 bpm 2017-06-10 Respiratory Rate 18 2017-06-10 BMI 18.30 kg/m2 2017-06-10 Blood pressure systolic 102 mmHg 2017-06-10 Blood pressure diastolic 76 mmHg 2017-06-10 MEDICATIONS Medication Instructions Dosage Frequency Start Date End Date Duration Status Cyclobenzaprine HCl 10 mg Orally Once a day 2 tablet at bedtime for muscle tension 24h Nov, Sep, 30 days Active Levothyroxine Sodium 150 MCG Orally Once a day 1 tablet on an empty stomach in the morning 24h Mar, 90 days Active RESULTS No Results PROCEDURES Procedure Date Ordered Result Body Site X-RAY EXAM OF NECK SPINE Jun 10, 2017 X-RAY EXAM OF THORACIC SPINE Jun 10, 2017 VENIPUNCT, ROUTINE* Jun 10, 2017 ASSAY OF FREE THYROXINE Jun 10, 2017 ASSAY THYROID STIM HORMONE Jun 10, 2017 LIPID PANEL Jun 10, 2017 COMPREHEN METABOLIC PANEL Jun 10, 2017 INSTRUCTIONS MEDICATIONS ADMINISTERED No Known Medications MEDICAL [...]
--- OUTSIDE RECORDS SUMMARY | 2018-01-21 09:33 | XMS REPORT ---
Author Author ENRIQUETA CHRISTY [facility] Address [address] [place] [address] Care Team Providers Care Technical Support Associate Name Role Phone ENRIQUETA CHRISTY Unavailable PROBLEMS Type Condition ICD9-CM Code OJM92-AH Code Onset Dates Condition Status SNOMED Code Problem Cervicalgia 723.1 Active 90692640 Problem Family history of other malignant neoplasm V16.49 Active 168201066 Problem Postablative hypothyroidism E89.0 Active 111986713 Problem Financial problems Z59.8 Active 060810075 Problem Cannabis dependence, unspecified abuse 304.30 Active 88094895 Problem Nondependent tobacco use disorder 305.1 Active 488621697 Problem Weight loss R63.4 Active 667036282 Problem Hypothyroid E03.9 Active 72058281 ALLERGIES Substance Reaction Event Type Date Status Trazodone HCl jittery Drug Allergy Jun, Active SOCIAL HISTORY Never Assessed PLAN OF CARE Activity Details Follow Up 3 Months Reason:Thyroid VITAL SIGNS Height 65 in 2016-06-16 Weight 120.3 lbs 2016-06-16 Temperature 97.9 degrees Fahrenheit 2016-06-16 Heart Rate 78 bpm 2016-06-16 Respiratory Rate 18 2016-06-16 BMI 20.02 kg/m2 2016-06-16 Blood pressure systolic 104 mmHg 2016-06-16 Blood pressure diastolic 68 mmHg 2016-06-16 MEDICATIONS Medication Instructions Dosage Frequency Start Date End Date Duration Status Cyclobenzaprine HCl 10 MG Orally Once a day 1 tablet at bedtime for muscle tension 24h Nov, 30 days Active Flonase 50 MCG/DOSE Nasally 2 times a day 1 spray in each nostril 12h Dec, 30 day(s) Active Levothyroxine Sodium 150 MCG Orally Once a day 1 tablet on an empty stomach in the morning 24h Mar, 90 days Active RESULTS Name Result Date Reference Range TSH W/ FREE T4 2016-06-16 TSH 0.498 0.450-4.500 T4,Free(Direct) 1.81 0.82-1.77 PROCEDURES Procedure Date Ordered Result Body Site ASSAY THYROID STIM HORMONE June 16, 2016 ASSAY OF FREE THYROXINE June 16, 2016 VENIPUNCT, ROUTINE* June 16, 2016 IMMUNIZATIONS No Known Immunizations MEDICAL (GENERAL) HISTORY [...]
--- OUTSIDE RECORDS SUMMARY | 2018-01-21 09:34 | XMS REPORT ---
Author Author ENRIQUETA CHRISTY Organization [facility] Address [address] [place] [address] Care Team Providers Care Acute Dialysis Registered Nurse Name Role Phone ENRIQUETA CHRISTY Unavailable PROBLEMS Type Condition ICD9-CM Code DML53-IA Code Onset Dates Condition Status SNOMED Code Problem Other chronic pain G89.29 Active 09880376 Problem Neuropathy G62.9 Active 031713710 Problem Weight loss R63.4 Active 412322474 Problem Hypothyroid E03.9 Active 08000129 Problem Postablative hypothyroidism E89.0 Active 858650837 Problem Financial problems Z59.8 Active 724424008 ALLERGIES No Information ENCOUNTERS Encounter Location Date Diagnosis [place] [address] [address] Jun, Postablative hypothyroidism E89.0 [place] [address] [address] 28 May, 2017 Postablative hypothyroidism E89.0 ; Screening, lipid Z13.220 ; Neuropathy G62.9 ; Radiculopathy affecting upper extremity M54.10 ; Low back pain M54.5 and Other chronic pain G89.29 [place] [address] [place] [id number] [place] [address]- 1404 Oct, Hypothyroid E03.9 ; Ganglion cyst of right foot M67.471 and Encounter for screening mammogram for breast cancer Z12.31 [place] [address] [address]- [address] Sep, Postablative hypothyroidism E89.0 [place] [address] [place] [id number] [place] [address] 49481- 4288 Sep, Hypothyroid E03.9 [place] [address] [place] [id number] [place] [address] 85939- 9765 Jun, Postablative hypothyroidism E89.0 [facility] [address] [place] [id number] [place] [address] 74467- 0404 Jun, [facility] [address] [place] [id number] [place] [address] 33455- 9992 Jun, Hypothyroid E03.9 [facility] [address] [place] [id number] [place] [address] 90502- 9651 Jun, Postablative hypothyroidism E89.0 [facility] [address] [place] [id number] [place] [address] 41057- 5122 Mar, [facility] [address] [place] [id number] [place] [address] 29765- 9153 Mar, [facility] [address] [place] [id number] [place] [address] 68517- 7670 Mar, Hypothyroid E03.9 [facility] [address] [place] [id number] [place] [address] 16624- 8762 Dec, [facility] [address] [place] [id number] [place] [address]15 -1592 Nov, Food poisoning, accidental or unintentional, initial encounter T62.91XA [facility] [address] [place] [id number] [place] [address] 16147- 6108 Nov, [facility] [address] [place] [id number] [place] [address] 42622- 3349 Oct, Hypothyroid E03.9 ; Weight loss R63.4 and Financial problems Z59.8 [facility] [address] [place] [id number] [place] [address] 44254- 4807 Jul, Gastroenteritis K52.9 [facility] [address] [place] [id number] [place] [address] 84246- 3854 Apr, Hypothyroid E03.9 [facility] [address] [place] [address]- [address] 14 Apr, 2015 Postablative hypothyroidism E89.0 and Upper respiratory infection J06.9 [facility] [address] 31318- 8265 Jan, [facility] [address] 81385- 7982 Jan, [facility] [address] 82876- 4085 Dec, [facility] [address] 84005- 9746 Dec, Cannabis abuse 305.20 and Major depression, recurrent 296.30 [facility] [address] 67373- 4045 Dec, Fatigue 780.79 ; Weakness 780.79 ; Hoarseness of voice 784.42 ; Shortness of breath 786.05 ; Hypothyroid 244.9 ; Cervicalgia 723.1 ; Depression 311 ; Insomnia 780.52 and Hard of hearing 389.9 [facility] [address] [place] [id number] [place] [address] 77221- 4555 Jul, [facility] [address] 07345- 6632 Jul, [facility] [address] [place] [id number] [place] [address] 39665- 2593 Mar, [facility] [address] [place] [id number] [place] [address] 49424- 1824 Mar, [facility] [address] 17943- 0630 Jan, [facility] [address] 00344- 8324 Jan, [facility] [address] [place] [id number] [place] [address] 17431- 5640 Jan, [facility] [address] [place] [address]- 2524 Jan, [facility] [place] [facility] [address] [id number] [place] [address]- 1043 Dec, [facility] [place] [facility] [address] [id number] [place] [address]- 6508 Dec, [facility] [place] [facility] [address] [id number] [place] [address]- 0351 Dec, [facility] [place] [facility] [address] [id number] [place] [address]- 1179 Dec, [facility] [place] [facility] [address] [id number] [place] [address]- 4446 Nov, [facility] [place] [facility] [address] [id number] [place] [address]- 3557 Nov, [facility] [place] [facility] [address] [id number] [place] [address]- 3545 Nov, [facility] [place] [facility] [address] [id number] [place] [address]- 6558 Nov, [facility] [place] [facility] [address] [id number] [place] [address]- 6165 Nov, [facility] [place] [facility] [address] [id number] [place] [address]- 5977 Oct, [facility] [place] [facility] [address] [id number] [place] [address]- 4416 Oct, [facility] [place] [facility] [address] [id number] [place] [address]- 8574 Oct, [facility] [place] [facility] [address] [id number] [place] [address]- 2185 Oct, [facility] [place] [facility] [address] [id number] [place] [address]- 1809 Oct, [facility] [place] [facility] [address] [id number] [place] [address]- 7511 Oct, [facility] [place] [facility] [address] [id number] [place] [address]- 6957 Sep, [facility] [place] [facility] [address] [id number] [place] [address]- 3163 Sep, [facility] [place] [facility] [address] [id number] [place] [address]- 9179 Sep, [facility] [place] [facility] [address] [id number] [place] [address]- 0783 Sep, [facility] [place] [facility] [address] [id number] [place] [address]- 9430 August, [facility] [place] [facility] [address] [id number] [place] [address]- 0188 August, [facility] [place] [facility] [address] [id number] [place] [address]- 5520 Jul, [facility] [place] [facility] [address] [id number] [place] [address]- 7011 Jul, [facility] [place] [facility] [address] [id number] [place] [address]- 6811 Jul, [facility] [place] [facility] [address] [id number] [place] [address]- 4263 Jul, [facility] [place] [facility] [address] [id number] [place] [address]- 0011 Jul, [facility] [place] [facility] [address] [id number] [place] [address]- 1435 Jun, [facility] [place] [facility] [address] [id number] [place] [address]- 6353 Jun, [facility] [place] [facility] [address] [id number] [place] [address]- 3648 May, [facility] [place] [facility] [address] [id number] [place] [address]- 5922 May, [facility] [place] [facility] [address] [id number] [place] [address]- 6216 May, [facility] [place] [facility] [address] [id number] [place] [address]- 8754 May, [facility] [place] [facility] [address] [id number] [place] 6953 Apr, [facility] [place] [facility] [address] [id number] [place] [address]- 5553 Apr, [facility] [place] [facility] [address] [id number] [place] [address]- 5568 Apr, [facility] [place] [facility] [address] [id number] [place] [address]- 9864 Apr, [facility] [place] [facility] [address] [id number] [place] [address]- 6251 Apr, [facility] [place] [facility] [address] [id number] [place] [address]- 4332 Apr, [facility] [place] [facility] [address] [id number] [place] [address]- 3843 Mar, [facility] [place] [facility] [address] [id number] [place] [address]- 9434 Mar, [facility] [place] [facility] [address] [facility] [id number] [place] [address]- 0928 Mar, [facility] [place] [facility] [address] [id number], [place] [address]- 2219 Mar, [facility] [place] [facility] [address] [id number], [place] [address]- 2496 Jan, [facility] [place] [facility] [address] [id number], [place] [address]- 8301 Jan, [facility] [place] [facility] [address] [id number], [place] [address]- 3133 Jan, [facility] [place] [facility] [address] [facility] [id number] [place] [address]- 5846 Jan, [facility] [place] [facility] [address] [id number] [place] [address]- 9063 Dec, [facility] [place] [facility] [address] [id number] [place] [address]- 3766 Dec, [facility] [place] [facility] [address] [id number] [place] [address]- 0114 Nov, [facility] [place] [facility] [address] [id number] [place] [address]- 8926 Nov, [facility] [place] [facility] [address] [id number] [place] [address]- 7070 Nov, [facility] [place] [facility] [address] [id number] [place] [address]- 9830 Nov, [facility] [place] [facility] [address] [id number] [place] [address]- 2722 Nov, [facility] [place] [facility] [address] [id number] [place] [address]- 1636 Nov, [facility] [place] [facility] [address] [id number] [place] [address]- 6945 Nov, [facility] [place] [facility] [address] [id number] [place] [address]- 5624 Nov, [facility] [place] [facility] [address] [id number] [place] [address]- 6995 Oct, [facility] [place] [facility] [address] [id number] [place] [address]- 7141 Oct, [facility] [place] [facility] [address] [id number] [place] [address]- 6701 Sep, [facility] [place] [facility] [address] [id number] [place] [address]- 0867 Sep, [facility] [place] [facility] [address] [id number] [place] [address]- 4078 August, [facility] [place] [facility] [address] [id number] [place] [address]- 1104 August, [facility] [address] [id number] [place] [address]- 3416 Jun, [facility] [place] [facility] [address] [id number] [place] [address]- 9170 Jun, [facility] [place] [facility] [address] [id number] [place] [address]- 0532 Jun, [facility] [place] [facility] [address] [id number] [place] [address]- 6606 Jun, [facility] [address] [id number] [place] [address]- 3257 May, [facility] [place] [facility] [address] [id number] [place] [address]- 4114 May, [facility] [address] [id number] [place] [address]- 0276 Apr, [facility] [place] [facility] [address] [id number] [place] [address]- 6479 Apr, [facility] [address] [id number] [place] [address]- 6910 Apr, [facility] [address] [id number] [place] [address]- 1940 Mar, [facility] [place] [facility] [address] [id number] [place] [address]- 1731 Mar, [facility] [place] [facility] [address] [id number], [place] [address]- 4825 Mar, [facility] [place] [facility] [address] [id number] [place] [address]- 6326 Mar, [facility] [place] [facility] [address] [id number] [place] [address]- 2443 Mar, [facility] [place] [facility] [address] [id number] [place] [address]- 2328 Mar, [facility] [place] [facility] [address] [id number] [place] [address]- 6129 Feb, [facility] [place] [facility] [address] [id number] [place] [address]- 3669 Feb, [facility] [place] [facility] [address] [id number] [place] [address]- 1728 Feb, [facility] [place] [facility] [address] [id number] [place] [address]- 4449 Feb, [facility] [place] [facility] [address] [id number] [place] [address]- 1398 Feb, [facility] [place] [facility] [address] [id number] [place] [address]- 0586 Feb, [facility] [place] [facility] [address] [id number] [place] [address]- 3650 Feb, [facility] [place] [facility] [address] [id number] [place] [address]- 8031 Feb, [facility] [place] [facility] [address] [id number] [place] [address]- 8102 Feb, [facility] [place] [facility] [address] [id number] [place] [address]- 1918 Feb, [facility] [place] [facility] [address] [facility] [id number] [place] [address]- 6907 Feb, [facility] [place] [facility] [address] [id number] [place] [address]- 1476 Feb, [facility] [place] [facility] [address] [id number], [place] [address]- 9624 Jan, [facility] [place] [facility] [address] [id number] [place] [address]- 7763 Jan, [facility] [place] [facility] [address] [facility] [id number] [place] [address]- 0021 Sep, [facility] [place] [facility] [address] [id number] [place] [address]- 1477 August, [facility] [place] [facility] [address] [id number] [place] [address]- 4216 August, [facility] [address] [id number] [place] [address]- 5180 August, [facility] [address] [id number] [place] [address]- 2426 August, [facility] [address] [id number] [place] [address]- 5574 August, [facility] [address] [id number] [place] [address]- 7748 August, [facility] [address] [id number] [place] [address]- 8285 August, [facility] [address] [id number] [place] [address]- 8175 August, [facility] [address] [id number] [place] [address]- 9861 August, [facility] [address] [id number] [place] [address]- 8141 August, [facility] [address] [id number] [place] [address]- 5122 Jul, [facility] [address] [id number] [place] [address]- 4684 May, [facility] [address] [id number] [place] [address]- 2180 Apr, [facility] [address] [id number] [place] [address]- 2197 Apr, [facility] [address] [id number] [place] [address]- 9466 Mar, [facility] [address] [id number] [place] [address]- 3451 Feb, [facility] [address] [id number], [place] [address]- 2546 Feb, [facility] [address] [id number] [address]- 2546 Jan, [facility] [id number] [address]- 2546 May, [facility] [id number], [place] [address]- 2546 Feb, [facility] [id number], [place] [address]- 2546 Mar, [facility] [id number], [place] [address]- 2546 Mar, [facility] [id number], [place] [address]- 2546 Jul, [facility] [address], [place] [address]- 2546 Jun, IMMUNIZATIONS No Known Immunizations SOCIAL HISTORY Never Assessed REASON FOR VISIT refill Request PLAN OF CARE VITAL SIGNS MEDICATIONS Medication Instructions Dosage Frequency Start Date End Date Duration Status Cyclobenzaprine HCl 10 MG Orally Once a day 1 tablet at bedtime for muscle tension 24h Nov, 30 days Active Levothyroxine Sodium 150 MCG [...]
--- OUTSIDE RECORDS SUMMARY | 2018-01-21 09:34 | XMS REPORT ---
Author Author SAMANTHA CURIEL Organization [employer] Address Unknown Phone Unavailable Care Team Providers Care Flooring Grader Name Role Phone SAMANTHA CURIEL CP Unavailable Allergies, Adverse Reactions, Alerts Substance Reaction Event Type Trazodone HCl jittery Drug Allergy Problems Problem Type Condition Code Onset Dates Condition Status Problem Hypothyroidism, unspecified E03.9 Active Assessment Food poisoning, accidental or unintentional, initial encounter T62.91XA Active Problem Weight loss R63.4 Active Problem Financial problems Z59.8 Active Problem Hypothyroid E03.9 Active Problem Cannabis dependence, unspecified abuse 304.30 Active Problem Family history of other malignant neoplasm V16.49 Active Problem Cervicalgia 723.1 Active Problem Nondependent tobacco use disorder 305.1 Active Medications Medication Code System Code Instructions Start Date End Date Status Dosage Cyclobenzaprine HCl [facility] [address]-51 10 mg Orally Once a day at hs for muscle tension Nov 15, 2015 1 tablet Synthroid [facility] [address]-24 125 MCG Orally 1 Tablet by Oral route 1 time per day Flonase [facility] [address]-11 50 MCG/DOSE Nasally 2 times a day Jan 09, 2015 1 spray in each nostril Zofran [facility] [address]-80 4 MG Orally every 6 hours as needed Nov 17, 2015 1 tablet Procedures Procedure Coding System Code Date THER/PROPH/DIAG INJ, SC/IM CPT-4 05525 Nov 17, 2015 Office Visit, Est Pt., Level 3 CPT-4 87976 Nov 17, 2015 ZOFRAN (IM) 2 MG/ML (PER 1 MG) 40 MG/20 ML CPT-4 J2405 Nov 17, 2015 Vital Signs Date/Time: Nov 17, 2015 Cardiac Monitoring Heart Rate 76 bpm Weight 113.4 lbs Height 65 in BMI 18.87 Index Blood Pressure Diastolic 70 mmHg Blood Pressure Systolic 104 mmHg Results No Known Results Summary Purpose [employer] Submission
--- OUTSIDE RECORDS SUMMARY | 2018-01-21 09:34 | XMS REPORT ---
Author Author ENRIQUETA CHRISTY [facility] Address [address] [place] [address] Care Team Providers Care Green Marketing Analyst Name Role Phone ENRIQUETA CHRISTY Unavailable PROBLEMS Type Condition ICD9-CM Code LAX50-WN Code Onset Dates Condition Status SNOMED Code Problem Cervicalgia 723.1 Active 35339446 Problem Family history of other malignant neoplasm V16.49 Active 821931471 Problem Postablative hypothyroidism E89.0 Active 037557501 Problem Financial problems Z59.8 Active 548379896 Problem Cannabis dependence, unspecified abuse 304.30 Active 06469828 Problem Nondependent tobacco use disorder 305.1 Active 374870840 Problem Weight loss R63.4 Active 108855747 Problem Hypothyroid E03.9 Active 84141542 ALLERGIES No Information SOCIAL HISTORY Never Assessed [...]
--- OUTSIDE RECORDS SUMMARY | 2018-01-21 09:34 | XMS REPORT ---
Author Author ENRIQUETA CHRISTY [facility] [employer] Address Unknown Phone Unavailable Care Team Providers Care Attorney Name Role Phone ENRIQUETA CHRISTY CP Unavailable Allergies, Adverse Reactions, Alerts Substance Reaction Event Type Trazodone HCl jittery Drug Allergy Problems Problem Type Condition Code Onset Dates Condition Status Assessment Weight loss R63.4 Active Problem Hypothyroidism, unspecified E03.9 Active Assessment Hypothyroid E03.9 Active Assessment Financial problems Z59.8 Active Problem Weight loss R63.4 Active Problem Financial problems Z59.8 Active Problem Hypothyroid E03.9 Active Problem Cannabis dependence, unspecified abuse 304.30 Active Problem Family history of other malignant neoplasm V16.49 Active Problem Cervicalgia 723.1 Active Problem Nondependent tobacco use disorder 305.1 Active Medications Medication Code System Code Instructions Start Date End Date Status Dosage Synthroid [facility] [address]-47 125 MCG Orally 1 Tablet by Oral route 1 time per day Flonase [facility] [address]-72 50 MCG/DOSE Nasally 2 times a day Jan 09, 2015 1 spray in each nostril Procedures Procedure Coding System Code Date Office Visit, Est Pt., Level 3 CPT-4 29025 November 06, 2015 Vital Signs Date/Time: November 06, 2015 Cardiac Monitoring Heart Rate 80 bpm Weight 111.8 lbs Height 65 in BMI 18.60 Index Blood Pressure Diastolic 68 mmHg Blood Pressure Systolic 100 mmHg Results No Known Results Summary Purpose [employer] Submission
--- OUTSIDE RECORDS SUMMARY | 2018-01-21 09:34 | XMS REPORT ---
Author Author ENRIQUETA CHRISTY Organization [employer] Address Unknown Phone Unavailable Care Team Providers Care Straight Line Press Setter Name Role Phone ENRIQUETA CHRISTY CP Unavailable Allergies No Known Allergies Problems Problem Type Condition Code Onset Dates Condition Status Problem Nondependent tobacco use disorder 305.1 Active Problem Cannabis dependence, unspecified abuse 304.30 Active Problem Cervicalgia 723.1 Active Problem Family history of other malignant neoplasm V16.49 Active Problem Hypothyroidism, unspecified E03.9 Active Medications Medication Code System Code Instructions Start Date End Date Status Dosage Synthroid [facility] [address]-64 100 MCG Jun 04, 2012 1 Tablet by Oral route 1 time per day Results No Known Results Summary Purpose eClinicalWorks Submission
--- OUTSIDE RECORDS SUMMARY | 2018-01-21 09:34 | XMS REPORT ---
Author Author ENRIQUETA CHRISTY [facility] [employer] Address Unknown Phone Unavailable Care Team Providers Care Medical Librarian Name Role Phone ENRIQUETA CHRISTY CP Unavailable Allergies, Adverse Reactions, Alerts Substance Reaction Event Type Trazodone HCl jittery Drug Allergy Problems Problem Type Condition Code Onset Dates Condition Status Assessment Hypothyroid 244.9 Active Assessment Hoarseness of voice 784.42 Active Assessment Shortness of breath 786.05 Active Problem Nondependent tobacco use disorder 305.1 Active Problem Cannabis dependence, unspecified abuse 304.30 Active Problem Cervicalgia 723.1 Active Assessment Fatigue 780.79 Active Assessment Weakness 780.79 Active Problem Family history of other malignant neoplasm V16.49 Active Problem Hypothyroidism, unspecified E03.9 Active Assessment Hard of hearing 389.9 Active Assessment Insomnia 780.52 Active Assessment Depression 311 Active Assessment Cervicalgia 723.1 Active Medications Medication Code System Code Instructions Start Date End Date Status Dosage Flonase [facility] [address]-49 50 MCG/DOSE Nasally 2 times a day Jan 09, 2015 1 spray in each nostril Procedures Procedure Coding System Code Date COMPREHEN METABOLIC PANEL CPT-4 70608 Jan 09, 2015 COMPLETE CBC W/AUTO DIFF WBC CPT-4 98064 Jan 09, 2015 ASSAY THYROID STIM HORMONE CPT-4 73651 Jan 09, 2015 Office Visit, Est Pt., Level 4 CPT-4 06156 Jan 09, 2015 VENIPUNCT, ROUTINE* CPT-4 90425 Jan 09, 2015 Vital Signs Date/Time: Jan 09, 2015 Temperature 98.6 F Weight 130.2 lbs Height 65 in BMI 21.66 Index Blood Pressure Diastolic 60 mmHg Blood Pressure Systolic 112 mmHg Cardiac Monitoring Heart Rate 78 bpm Results Name Result Date Reference Range Unit Abnormality Flag ROUTINE VENIPUNCTURE TSH Summary Purpose [employer]ClinicalWorks Submission
--- OUTSIDE RECORDS SUMMARY | 2018-01-21 09:34 | XMS REPORT ---
Author Author ENRIQUETA CHRISTY [facility] Address [address] [place] [address] Care Team Providers Care Conservation Science Teacher Name Role Phone ENRIQUETA CHRISTY Unavailable PROBLEMS Type Condition ICD9-CM Code [id number] Code Onset Dates Condition Status SNOMED Code Problem Cannabis dependence, unspecified abuse 304.30 Active 60076183 Problem Family history of other malignant neoplasm V16.49 Active 697657450 Problem Postablative hypothyroidism E89.0 Active 917426670 Problem Hypothyroid E03.9 Active 50035227 Problem Cervicalgia 723.1 Active 70765165 Problem Nondependent tobacco use disorder 305.1 Active 884291436 Problem Weight loss R63.4 Active 520043860 Problem Financial problems Z59.8 Active 174218417 ALLERGIES Substance Reaction Event Type Date Status Trazodone HCl jittery Drug Allergy Mar, Active SOCIAL HISTORY No smoking Hx information available PLAN OF CARE Activity Details Follow Up 3 Months Reason:hypothyroid VITAL SIGNS Height 65 in 2016-04-08 Weight 120.6 lbs 2016-04-08 Temperature 98.3 degrees Fahrenheit 2016-04-08 Heart Rate 72 bpm 2016-04-08 Respiratory Rate 18 2016-04-08 BMI 20.07 kg/m2 2016-04-08 Blood pressure systolic 100 mmHg 2016-04-08 Blood pressure diastolic 60 mmHg 2016-04-08 MEDICATIONS Medication Instructions Dosage Frequency Start Date End Date Duration Status Cyclobenzaprine HCl 10 mg Orally Once a day at hs for muscle tension 1 tablet Nov, Active Synthroid 125 MCG 1 Tablet by Oral route 1 time per day Active Flonase 50 MCG/DOSE Nasally 2 times a day 1 spray in each nostril 12h Dec, 30 day(s) Active RESULTS Name Result Date Reference Range TSH 2016-04-08 TSH 192.500 0.450-4.500 PROCEDURES Procedure Date Ordered Related Diagnosis Body Site ASSAY THYROID STIM HORMONE Apr 08, 2016 VENIPUNCT, ROUTINE* Apr 08, 2016 Office Visit, Est Pt., Level 3 Apr 08, 2016 IMMUNIZATIONS No Known Immunizations
--- OUTSIDE RECORDS SUMMARY | 2018-01-21 09:34 | XMS REPORT ---
Author Author ENRIQUETA CHRISTY [facility] e[employer] Address Unknown Phone Unavailable Care Team Providers Care Real Estate Account Executive Name Role Phone ENRIQUETA CHRISTY CP Unavailable Allergies No Known Allergies Problems Problem Type Condition Code Onset Dates Condition Status Problem Nondependent tobacco use disorder 305.1 Active Problem Cannabis dependence, unspecified abuse 304.30 Active Problem Cervicalgia 723.1 Active Problem Family history of other malignant neoplasm V16.49 Active Problem Hypothyroidism, unspecified E03.9 Active Medications No Known Medications Results No Known Results Summary Purpose eClinicalWorks Submission
--- OUTSIDE RECORDS SUMMARY | 2018-01-21 09:35 | XMS REPORT ---
Author Author ENRIQUETA CHRISTY [facility] Address [address] [place] [address] Care Team Providers Care Fuel Oil Truck Driver Name Role Phone ENRIQUETA CHRISTY Unavailable PROBLEMS Type Condition ICD9-CM Code GAC66-CO Code Onset Dates Condition Status SNOMED Code Problem Cannabis dependence, unspecified abuse 304.30 Active 39377279 Problem Family history of other malignant neoplasm V16.49 Active 342023965 Problem Postablative hypothyroidism E89.0 Active 333838121 Problem Hypothyroid E03.9 Active 25880068 Problem Cervicalgia 723.1 Active 99488612 Problem Nondependent tobacco use disorder 305.1 Active 860884647 Problem Weight loss R63.4 Active 986561585 Problem Financial problems Z59.8 Active 881444957 ALLERGIES No Known Allergies SOCIAL HISTORY No [...]
--- OUTSIDE RECORDS SUMMARY | 2018-01-21 09:35 | XMS REPORT ---
Author Author ENRIQUETA CHRISTY Organization [facility] Address [address] [place] [address] Care Team Providers Care Online Editor Name Role Phone ENRIQUETA CHRISTY Unavailable PROBLEMS Type Condition ICD9-CM Code PGV97-FY Code Onset Dates Condition Status SNOMED Code Problem Other chronic pain G89.29 Active 58930086 Problem Neuropathy G62.9 Active 582041145 Problem Weight loss R63.4 Active 657676497 Problem Hypothyroid E03.9 Active 87037652 Problem Postablative hypothyroidism E89.0 Active 955462800 Problem Financial problems Z59.8 Active 396817109 ALLERGIES No Information ENCOUNTERS Encounter Location Date Diagnosis [place] [address] [address] Jun, Postablative hypothyroidism E89.0 [place] [address] [address] 28 May, 2017 Postablative hypothyroidism E89.0 ; Screening, lipid Z13.220 ; Neuropathy G62.9 ; Radiculopathy affecting upper extremity M54.10 ; Low back pain M54.5 and Other chronic pain G89.29 [place] [address] [place] [id number] [place] [address] Oct, Hypothyroid E03.9 ; Ganglion cyst of right foot M67.471 and Encounter for screening mammogram for breast cancer Z12.31 [place] [address] [address] Sep, Postablative hypothyroidism E89.0 [place] [address] [place] [id number] [place] [address]- [address] Sep, Hypothyroid E03.9 [place] [address] [place] [id number] [place] [address]- 7261 Jun, Postablative hypothyroidism E89.0 [facility] [address] [place] [id number] [place] [address]28- 5874 Jun, [facility] [address] [place] [id number] [place] [address]34- 8965 Jun, Hypothyroid E03.9 [facility] [address] [place] [id number] [place] [address]56- 2335 Jun, Postablative hypothyroidism E89.0 [facility] [address] [place] [id number] [place] [address]- 5308 Mar, [facility] [address] [place] [id number] [place] [address] 260[address]- 3614 Mar, [facility] [address] [place] [id number] [place] [address]- 7390 Mar, Hypothyroid E03.9 [facility] [address] [place] [id number] [place] [address]- 2533 Dec, [facility] [address] [place] [id number] [place] [address] -[address] Nov, Food poisoning, accidental or unintentional, initial encounter T62.91XA [facility] [address] [place] [id number] [place] [address]24- 2526 Nov, [facility] [address] [place] [id number] [place] [address] 71776- 8889 Oct, Hypothyroid E03.9 ; Weight loss R63.4 and Financial problems Z59.8 [facility] [address] [place] [id number] [place] [address] 62347- 3122 Jul, Gastroenteritis K52.9 [facility] [address] [place] [id number] [place] [address]- 4573 Apr, Hypothyroid E03.9 [facility] [address] [place] [address]- [address] 14 Apr, 2015 Postablative hypothyroidism E89.0 and Upper respiratory infection J06.9 [facility] [address] [address]- [address] Jan, [facility] [address] [address]- 3461 Jan, [facility] [address] [address]- [address] Dec, [facility] [address] [address]- 12[address] Dec, Cannabis abuse 305.20 and Major depression, recurrent 296.30 [facility] [address] [address]- [address] Dec, Fatigue 780.79 ; Weakness 780.79 ; Hoarseness of voice 784.42 ; Shortness of breath 786.05 ; Hypothyroid 244.9 ; Cervicalgia 723.1 ; Depression 311 ; Insomnia 780.52 and Hard of hearing 389.9 [facility] [address] [place] [id number] [place] [address] 77803- 9996 Jul, [facility] [address] [address]- 7366 Jul, [facility] [address] [place] [id number] [place] [address] 66709- 6964 Mar, [facility] [address] [place] [id number] [place] [address] 00245- 0589 Mar, [facility] [address] [address]- 0[address] Jan, [facility] [address] [address]- 3[address] Jan, [facility] [address] [place] [id number] [place] [address] 98516- 9904 Jan, [facility] [address] [place] [address]- 88[address] Jan, [facility] [place] [facility] [address] [id number] [place] [address]- 3845 Dec, [facility] [place] [facility] [address] [id number] [place] [address]- 6804 Dec, [facility] [place] [facility] [address] [id number] [place] [address]- 7312 Dec, [facility] [place] [facility] [address] [id number] [place] [address]- 3448 Dec, [facility] [place] [facility] [address] [id number] [place] [address]- 8377 Nov, [facility] [place] [facility] [address] [id number] [place] [address]- 6191 Nov, [facility] [place] [facility] [address] [id number] [place] [address]- 0491 Nov, [facility] [place] [facility] [address] [id number] [place] [address]- 4033 Nov, [facility] [place] [facility] [address] [id number] [place] [address]- 7958 Nov, [facility] [place] [facility] [address] [id number] [place] [address]- 9531 Oct, [facility] [place] [facility] [address] [id number] [place] [address]- 3009 Oct, [facility] [place] [facility] [address] [id number] [place] [address]- 1518 Oct, [facility] [place] [facility] [address] [id number] [place] [address]- 7000 Oct, [facility] [place] [facility] [address] [id number] [place] [address]- 7522 Oct, [facility] [place] [facility] [address] [id number] [place] [address]- 3258 Oct, [facility] [place] [facility] [address] [id number] [place] [address]- 8925 Sep, [facility] [place] [facility] [address] [id number] [place] [address]- 9368 Sep, [facility] [place] [facility] [address] [id number] [place] [address]- 4988 Sep, [facility] [place] [facility] [address] [id number] [place] [address]- 4634 Sep, [facility] [place] [facility] [address] [id number] [place] [address]- 2645 August, [facility] [place] [facility] [address] [id number] [place] [address]- 1380 August, [facility] [place] [facility] [address] [id number] [place] [address]- 8906 Jul, [facility] [place] [facility] [address] [id number] [place] [address]- 2899 Jul, [facility] [place] [facility] [address] [id number] [place] [address]- 6082 Jul, [facility] [place] [facility] [address] [id number] [place] [address]- 7282 Jul, [facility] [place] [facility] [address] [id number] [place] [address]- 3299 Jul, [facility] [place] [facility] [address] [id number] [place] [address]- 9647 Jun, [facility] [place] [facility] [address] [id number] [place] [address]- 0437 Jun, [facility] [place] [facility] [address] [id number] [place] [address]- 0794 May, [facility] [place] [facility] [address] [id number] [place] [address]- 5453 May, [facility] [place] [facility] [address] [id number] [place] [address]- 9904 May, [facility] [place] [facility] [address] [id number] [place] [address]- 9402 May, [facility] [place] [facility] [address] [id number] [place] [address] Apr, [facility] [place] [facility] [address] [id number] [place] [address]- 2696 Apr, [facility] [place] [facility] [address] [id number] [place] [address]- 8791 Apr, [facility] [place] [facility] [address] [id number] [place] [address]- 4568 Apr, [facility] [place] [facility] [address] [id number] [place] [address]- 5530 Apr, [facility] [place] [facility] [address] [id number] [place] [address]- 0238 Apr, [facility] [place] [facility] [address] [id number] [place] [address]- 1620 Mar, [facility] [place] [facility] [address] [id number] [place] [address]- 7325 Mar, [facility] [place] [facility] [address] [facility] [id number] [place] [address]- 9267 Mar, [facility] [place] [facility] [address] [id number] [address]- 4336 Mar, [facility] [place] [facility] [address] [id number], [place] [address]- 7043 Jan, [facility] [place] [facility] [address] [id number], [place] [address]- 2617 Jan, [facility] [place] [facility] [address] [id number], [place] [address]- 7084 Jan, [facility] [place] [facility] [address] [facility] [id number] [place] [address]- 8023 Jan, [facility] [place] [facility] [address] [id number] [place] [address]- 8081 Dec, [facility] [place] [facility] [address] [id number] [place] [address]- 1120 Dec, [facility] [place] [facility] [address] [id number] [place] [address]- 1039 Nov, [facility] [place] [facility] [address] [id number] [place] [address]- 9397 Nov, [facility] [place] [facility] [address] [id number] [place] [address]- 6492 Nov, [facility] [place] [facility] [address] [id number] [place] [address]- 5167 Nov, [facility] [place] [facility] [address] [id number] [place] [address]- 4616 Nov, [facility] [place] [facility] [address] [id number] [place] [address]- 0500 Nov, [facility] [place] [facility] [address] [id number] [place] [address]- 5287 Nov, [facility] [place] [facility] [address] [id number] [place] [address]- 6424 Nov, [facility] [place] [facility] [address] [id number] [place] [address]- 3657 Oct, [facility] [place] [facility] [address] [id number] [place] [address]- 9780 Oct, [facility] [place] [facility] [address] [id number] [place] [address]- 7744 Sep, [facility] [place] [facility] [address] [id number] [place] [address]- 0379 Sep, [facility] [place] [facility] [address] [id number] [place] [address]- 9640 August, [facility] [place] [facility] [address] [id number] [place] [address]- 4558 August, [facility] [address] [id number] [place] [address]- 1789 Jun, [facility] [place] [facility] [address] [id number] [place] [address]- 7214 Jun, [facility] [place] [facility] [address] [id number] [place] [address]- 6643 Jun, [facility] [place] [facility] [address] [id number] [place] [address]- 2087 Jun, [facility] [address] [id number] [place] [address]- 2710 May, [facility] [place] [facility] [address] [id number] [place] [address]- 0444 May, [facility] [address] [id number] [place] [address]- 8155 Apr, [facility] [place] [facility] [address] [id number] [place] [address]- 5097 Apr, [facility] [address] [id number] [place] [address]- 3468 Apr, [facility] [address] [id number] [place] [address]- 0357 Mar, [facility] [place] [facility] [address] [id number] [place] [address]- 8223 Mar, [facility] [place] [facility] [address] [id number], [place] [address]- 5551 Mar, [facility] [place] [facility] [address] [id number] [place] [address]- 9585 Mar, [facility] [place] [facility] [address] [id number] [place] [address]- 9665 Mar, [facility] [place] [facility] [address] [id number] [place] [address]- 9978 Mar, [facility] [place] [facility] [address] [id number] [place] [address]- 9493 Feb, [facility] [place] [facility] [address] [id number] [place] [address]- 8178 Feb, [facility] [place] [facility] [address] [id number] [place] [address]- 2877 Feb, [facility] [place] [facility] [address] [id number] [place] [address]- 6553 Feb, [facility] [place] [facility] [address] [id number] [place] [address]- 4827 Feb, [facility] [place] [facility] [address] [id number] [place] [address]- 8957 Feb, [facility] [place] [facility] [address] [id number] [place] [address]- 7145 Feb, [facility] [place] [facility] [address] [id number] [place] [address]- 5140 Feb, [facility] [place] [facility] [address] [id number] [place] [address]- 3262 Feb, [facility] [place] [facility] [address] [id number] [place] [address]- 6758 Feb, [facility] [place] [facility] [address] [facility] [id number] [place] [address]- 0206 Feb, [facility] [place] [facility] [address] [id number] [place] [address]- 0416 Feb, [facility] [place] [facility] [address] [id number], [place] [address]- 6905 Jan, [facility] [place] [facility] [address] [id number] [place] [address]- 7850 Jan, [facility] [place] [facility] [address] [facility] [id number] [place] [address]- 5073 Sep, [facility] [place] [facility] [address] [id number] [place] [address]- 3864 August, [facility] [place] [facility] [address] [id number] [place] [address]- 1714 August, [facility] [address] [id number] [place] [address]- 2617 August, [facility] [address] [id number] [place] [address]- 0196 August, [facility] [address] [id number] [place] [address]- 0049 August, [facility] [address] [id number] [place] [address]- 0770 August, [facility] [address] [id number] [place] [address]- 7725 August, [facility] [address] [id number] [place] [address]- 1935 August, [facility] [address] [id number] [place] [address]- 9196 August, [facility] [address] [id number] [place] [address]- 2807 August, [facility] [address] [id number] [place] [address]- 4334 Jul, [facility] [address] [id number] [place] [address]- 1596 May, [facility] [address] [id number] [place] [address]- 3245 Apr, [facility] [address] [id number] [place] [address]- 7408 Apr, [facility] [address] [id number] [place] [address]- 5336 Mar, [facility] [address] [id number] [place] [address]- 2007 Feb, [facility] [address] [id number], [place] [address]- 2546 Feb, [facility] [address] [place] [id number], [place] [address]- 2546 Jan, [facility] [address], [place] [address]- 2546 May, [facility] [address], [place] [address]- 2546 Feb, [facility] [address] [id number] [place] [address]- 2546 Mar, [facility] [address], [place] [address]- 2546 Mar, [facility] [id number] [place] [address]- 2546 Jul, [facility] [address] [id number], [place] [address]- 2546 Jun, IMMUNIZATIONS No Known Immunizations SOCIAL HISTORY Never Assessed REASON FOR VISIT Lab (walk-in) PLAN OF CARE VITAL SIGNS MEDICATIONS Unknown Medications RESULTS Name Result Date Reference Range TSH W/ FREE T4 2016-10-03 TSH 1.680 0.450-4.500 T4,Free(Direct) 1.34 0.82-1.77 PROCEDURES Procedure Date Ordered Result Body Site ASSAY THYROID STIM HORMONE October 03, 2016 ASSAY OF FREE THYROXINE October 03, 2016 VENIPUNCT, ROUTINE* October 03, 2016 INSTRUCTIONS MEDICATIONS ADMINISTERED No Known Medications MEDICAL [...]
--- OUTSIDE RECORDS SUMMARY | 2018-01-21 09:35 | XMS REPORT | Continuity of Care Document ---
Author Author [facility] Address Unknown Phone Unavailable Allergies Active Description Code Type Severity Reaction Onset Reported/Identified Relationship to Patient Clinical Status Yes traZODONE Drug Allergy 04/03/2009 Yes traZODONE Drug Allergy N/A N/A 04/03/2009 Yes No Known Drug Allergies [id number] Drug Allergy Mild N/A 06/23/2009 Medications There is no data. Problems Date Dx Coded Attending Type Code Diagnosis Diagnosed By 11/25/2007 ENRIQUETA CHRISTY APRN V25.49 SURVEILLANCE OF OTHER CONTRACEPTIVE METHOD 11/25/2007 V25.49 SURVEILLANCE OF OTHER CONTRACEPTIVE METHOD 11/25/2007 ENRIQUETA CHRISTY APRN V25.49 SURVEILLANCE OF OTHER CONTRACEPTIVE METHOD 11/25/2007 ANABELL DOOLEY MD V25.49 SURVEILLANCE OF OTHER CONTRACEPTIVE METHOD 11/25/2007 V25.49 SURVEILLANCE OF OTHER CONTRACEPTIVE METHOD 11/25/2007 V25.49 SURVEILLANCE OF OTHER CONTRACEPTIVE METHOD 11/25/2007 ENRIQUETA CHRISTY APRN V25.49 SURVEILLANCE OF OTHER CONTRACEPTIVE METHOD 11/25/2007 ENRIQUETA CHRISTY APRN S V25.49 SURVEILLANCE OF OTHER CONTRACEPTIVE METHOD 11/25/2007 ENRIQUETA CHRISTY APRN V25.49 SURVEILLANCE OF OTHER CONTRACEPTIVE METHOD 12/01/2007 ENRIQUETA CHRISTY APRN S 244.9 HYPOTHYROIDISM 12/01/2007 ENRIQUETA CHRISTY APRN S 784.49 Hoarseness 12/01/2007 244.9 HYPOTHYROIDISM 12/01/2007 784.49 Hoarseness 12/01/2007 ENRIQUETA CHRISTY APRN 244.9 HYPOTHYROIDISM 12/01/2007 ENRIQUETA CHRISTY APRN 784.49 Hoarseness 12/01/2007 ANABELL DOOLEY MD 244.9 HYPOTHYROIDISM 12/01/2007 ANABELL DOOLEY MD 784.49 Hoarseness 12/01/2007 244.9 HYPOTHYROIDISM 12/01/2007 784.49 Hoarseness 12/01/2007 244.9 HYPOTHYROIDISM 12/01/2007 784.49 Hoarseness 12/01/2007 WESTLEY HAMMOND, ENRIQUETA S 244.9 HYPOTHYROIDISM 12/01/2007 WESTLEY QUALITY ASSURANCE ANALYST, ENRIQUETA S 784.49 Hoarseness 12/01/2007 WESTLEY HAMMOND, ENRIQUETA S 244.9 HYPOTHYROIDISM 12/01/2007 WESTLEY HERRONN, ENRIQUETA S 784.49 Hoarseness 12/01/2007 WESTLEY HAMMOND, ENRIQUETA S 244.9 HYPOTHYROIDISM 12/01/2007 WESTLEY HAMMOND, ENRIQUETA S 784.49 Hoarseness 04/03/2009 BELGICA CHRISTY APRNNDA S 300.00 anxiety 04/03/2009 300.00 anxiety 04/03/2009 WESTLEY HAMMOND ENRIQUETA S 300.00 anxiety 04/03/2009 ANABELL DOOLEY MD 300.00 anxiety 04/03/2009 300.00 anxiety 04/03/2009 300.00 anxiety 04/03/2009 BELGICA CHRISTY APRNNDA S 300.00 anxiety 04/03/2009 BELGICA CHRISTY APRNNDA S 300.00 anxiety 04/03/2009 WESTLEY HAMMOND ENRIQUETA S 300.00 anxiety 05/08/2010 BELGICA CHRISTY APRNNDA S 709.9 Skin Lesions 05/08/2010 709.9 Skin Lesions 05/08/2010 BELGICA CHRISTY APRNNDA S 709.9 Skin Lesions 05/08/2010 ANABELL DOOLEY MD 709.9 Skin Lesions 05/08/2010 709.9 Skin Lesions 05/08/2010 709.9 Skin Lesions 05/08/2010 BELGICA CHRISTY APRNNDA S 709.9 Skin Lesions 05/08/2010 BELGICA CHRISTY APRNNDA S 709.9 Skin Lesions 05/08/2010 BELGICA CHRISTY APRNNDA S 709.9 Skin Lesions 05/31/2010 BELGICA CHRISTY APRNNDA S 216.9 Mole/nevus - Site Unspecified 05/31/2010 216.9 Mole/nevus - Site Unspecified 05/31/2010 BELGICA CHRISTY APRNNDA S 216.9 Mole/nevus - Site Unspecified 05/31/2010 ANABELL DOOLEY MD 216.9 Mole/nevus - Site Unspecified 05/31/2010 216.9 Mole/nevus - Site Unspecified 05/31/2010 216.9 Mole/nevus - Site Unspecified 05/31/2010 BELGICA CHRISTY APRNNDA S 216.9 Mole/nevus - Site Unspecified 05/31/2010 BELGICA CHRISTY APRNNDA S 216.9 Mole/nevus - Site Unspecified 05/31/2010 BELGICA CHRISTY APRNNDA S 216.9 Mole/nevus - Site Unspecified 01/09/2011 EVIN CHRISTY APRNA S 296.90 MOOD DISORDER 01/09/2011 EVIN CHRISTY APRNA S 300.02 AN GEN ANXIETY 01/09/2011 BELGICA CHRISTY APRNNDA S 780.79 MALAISE AND FATIGUE 01/09/2011 EVIN CHRISTY APRNA S V68.1 ISSUE OF REPEAT PRESCRIPTIONS 01/09/2011 296.90 MOOD DISORDER 01/09/2011 300.02 AN GEN ANXIETY 01/09/2011 780.79 MALAISE AND FATIGUE 01/09/2011 V68.1 ISSUE OF REPEAT PRESCRIPTIONS 01/09/2011 EVIN CHRISTY APRNA S 296.90 MOOD DISORDER 01/09/2011 EVIN CHRISTY APRNA S 300.02 AN GEN ANXIETY 01/09/2011 EVIN CHRISTY APRNA S 780.79 MALAISE AND FATIGUE 01/09/2011 EVIN CHRISTY APRNA S V68.1 ISSUE OF REPEAT PRESCRIPTIONS 01/09/2011 ANABELL DOOLEY MD 296.90 MOOD DISORDER 01/09/2011 ANABELL DOOLEY MD 300.02 AN GEN ANXIETY 01/09/2011 ANABELL DOOLEY MD 780.79 MALAISE AND FATIGUE 01/09/2011 ANABELL DOOLEY MD V68.1 ISSUE OF REPEAT PRESCRIPTIONS 01/09/2011 296.90 MOOD DISORDER 01/09/2011 300.02 AN GEN ANXIETY 01/09/2011 780.79 MALAISE AND FATIGUE 01/09/2011 V68.1 ISSUE OF REPEAT PRESCRIPTIONS 01/09/2011 296.90 MOOD DISORDER 01/09/2011 300.02 AN GEN ANXIETY 01/09/2011 780.79 MALAISE AND FATIGUE 01/09/2011 V68.1 ISSUE OF REPEAT PRESCRIPTIONS 01/09/2011 BELGICA CHRISTY APRNNDA S 296.90 MOOD DISORDER 01/09/2011 BELGICA CHRISTY APRNNDA S 300.02 AN GEN ANXIETY 01/09/2011 WESTLEY QUALITY ASSURANCE ANALYST, ENRIQUETA S 780.79 MALAISE AND FATIGUE 01/09/2011 BELGICA CHRISTY APRNNDA S V68.1 ISSUE OF REPEAT PRESCRIPTIONS 01/09/2011 BELGICA CHRISTY APRNNDA S 296.90 MOOD DISORDER 01/09/2011 BELGICA CHRISTY APRNNDA S 300.02 AN GEN ANXIETY 01/09/2011 BELGICA CHRISTY APRNNDA S 780.79 MALAISE AND FATIGUE 01/09/2011 WESTLEY HAMMOND, ENRIQUETA S V68.1 ISSUE OF REPEAT PRESCRIPTIONS 01/09/2011 BELGICA CHRISTY APRNNDA S 296.90 MOOD DISORDER 01/09/2011 BELGICA CHRISTY APRNNDA S 300.02 AN GEN ANXIETY 01/09/2011 WESTLEY HAMMOND, ENRIQUETA S 780.79 MALAISE AND FATIGUE 01/09/2011 BELGICA CHRISTY APRNNDA S V68.1 ISSUE OF REPEAT PRESCRIPTIONS 02/05/2011 BELGICA CHRISTY APRNNDA S 296.32 MO DEPRESSIVE RECURRENT MODERATE 02/05/2011 BELGICA CHRISTY APRNNDA S 300.01 AN PANIC DIS W/O AGORA 02/05/2011 296.32 MO DEPRESSIVE RECURRENT MODERATE 02/05/2011 300.01 AN PANIC DIS W/O AGORA 02/05/2011 WESTLEY HAMMOND ENRIQUETA S 296.32 MO DEPRESSIVE RECURRENT MODERATE 02/05/2011 BELGICA CHRISTY APRNNDA S 300.01 AN PANIC DIS W/O AGORA 02/05/2011 ANABELL DOOLEY MD 296.32 MO DEPRESSIVE RECURRENT MODERATE 02/05/2011 ANABELL DOOLEY MD 300.01 AN PANIC DIS W/O AGORA 02/05/2011 296.32 MO DEPRESSIVE RECURRENT MODERATE 02/05/2011 300.01 AN PANIC DIS W/O AGORA 02/05/2011 296.32 MO DEPRESSIVE RECURRENT MODERATE 02/05/2011 300.01 AN PANIC DIS W/O AGORA 02/05/2011 ENRIQUETA CHRISTY APRN S 296.32 MO DEPRESSIVE RECURRENT MODERATE 02/05/2011 EVIN CHRISTY APRNA S 300.01 AN PANIC DIS W/O AGORA 02/05/2011 BELGICA CHRISTY APRNNDA S 296.32 MO DEPRESSIVE RECURRENT MODERATE 02/05/2011 BELGICA CHRISTY APRNNDA S 300.01 AN PANIC DIS W/O AGORA 02/05/2011 BELGICA CHRISTY APRNNDA S 296.32 MO DEPRESSIVE RECURRENT MODERATE 02/05/2011 EVIN CHRISTY APRNA S 300.01 AN PANIC DIS W/O AGORA 08/27/2011 ENRIQUETA CHRISTY APRN S 304.30 CANNABIS DEPENDENCE UNSPECIFIED USE 08/27/2011 ENRIQUETA CHRISTY APRN S 305.1 NONDEPENDENT TOBACCO USE DISORDER 08/27/2011 ENRIQUETA CHRISTY APRN S 723.1 CERVICALGIA 08/27/2011 ENRIQUETA CHRISTY APRN S 783.21 WEIGHT LOSS 08/27/2011 304.30 CANNABIS DEPENDENCE UNSPECIFIED USE 08/27/2011 305.1 NONDEPENDENT TOBACCO USE DISORDER 08/27/2011 723.1 CERVICALGIA 08/27/2011 783.21 WEIGHT LOSS 08/27/2011 ENRIQUETA CHRISTY APRN S 304.30 CANNABIS DEPENDENCE UNSPECIFIED USE 08/27/2011 ENRIQUETA CHRISTY APRN S 305.1 NONDEPENDENT TOBACCO USE DISORDER 08/27/2011 ENRIQUETA CHRISTY APRN S 723.1 CERVICALGIA 08/27/2011 ENRIQUETA CHRISTY APRN S 783.21 WEIGHT LOSS 08/27/2011 ANABELL DOOLEY MD 304.30 CANNABIS DEPENDENCE 08/27/2011 ANABELL DOOLEY MD 305.1 NONDEPENDENT TOBACCO USE DISORDER 08/27/2011 ANABELL DOOLEY MD 723.1 CERVICALGIA 08/27/2011 ANABELL DOOLEY MD 783.21 WEIGHT LOSS 08/27/2011 304.30 CANNABIS DEPENDENCE 08/27/2011 305.1 NONDEPENDENT TOBACCO USE DISORDER 08/27/2011 723.1 CERVICALGIA 08/27/2011 783.21 WEIGHT LOSS 08/27/2011 304.30 CANNABIS DEPENDENCE 08/27/2011 305.1 NONDEPENDENT TOBACCO USE DISORDER 08/27/2011 723.1 CERVICALGIA 08/27/2011 783.21 WEIGHT LOSS 08/27/2011 BELGICA CHRISTY APRNNDA S 304.30 CANNABIS DEPENDENCE 08/27/2011 BELGICA CHRISTY APRNNDA S 305.1 NONDEPENDENT TOBACCO USE DISORDER 08/27/2011 BELGICA CHRISTY APRNNDA S 723.1 CERVICALGIA 08/27/2011 BELGICA CHRISTY APRNNDA S 783.21 WEIGHT LOSS 08/27/2011 BELGICA CHRISTY APRNNDA S 304.30 CANNABIS DEPENDENCE 08/27/2011 BELGICA CHRISTY APRNNDA S 305.1 NONDEPENDENT TOBACCO USE DISORDER 08/27/2011 BELGICA CHRISTY APRNNDA S 723.1 CERVICALGIA 08/27/2011 BELGICA CHRISTY APRNNDA S 783.21 WEIGHT LOSS 08/27/2011 BELGICA CHRISTY APRNNDA S 304.30 CANNABIS DEPENDENCE 08/27/2011 BELGICA CHRISTY APRNNDA S 305.1 NONDEPENDENT TOBACCO USE DISORDER 08/27/2011 BELGICA CHRISTY APRNNDA S 723.1 CERVICALGIA 08/27/2011 BELGICA CHRISTY APRNNDA S 783.21 WEIGHT LOSS 09/04/2011 BELGICA CHRISTY APRNNDA S V76.2 CERVICAL CANCER SCREENING (PAP SMEAR) 09/04/2011 V76.2 CERVICAL CANCER SCREENING (PAP SMEAR) 09/04/2011 ENRIQUETA CHRISTY APRN S V76.2 CERVICAL CANCER SCREENING (PAP SMEAR) 09/04/2011 ANABELL DOOLEY MD V76.2 CERVICAL CANCER SCREENING (PAP SMEAR) 09/04/2011 V76.2 CERVICAL CANCER SCREENING (PAP SMEAR) 09/04/2011 V76.2 CERVICAL CANCER SCREENING (PAP SMEAR) 09/04/2011 EVIN CHRISTY APRNA S V76.2 CERVICAL CANCER SCREENING (PAP SMEAR) 09/04/2011 BELGICA CHRISTY APRNNDA S V76.2 CERVICAL CANCER SCREENING (PAP SMEAR) 09/04/2011 WESTLEY QUALITY ASSURANCE ANALYST, ENRIQUETA S V76.2 CERVICAL CANCER SCREENING (PAP SMEAR) 03/03/2012 BELGICA CHRISTY APRNNDA S V16.49 FAMILY HISTORY OF MALIGNANT NEOPLASM OF OTHER 03/03/2012 V16.49 FAMILY HISTORY OF MALIGNANT NEOPLASM OF OTHER 03/03/2012 BELGICA CHRISTY APRNNDA S V16.49 FAMILY HISTORY OF MALIGNANT NEOPLASM OF OTHER 03/03/2012 ANABELL DOOLEY MD V16.49 FAMILY HISTORY OF MALIGNANT NEOPLASM OF OTHER 03/03/2012 V16.49 FAMILY HISTORY OF MALIGNANT NEOPLASM OF OTHER 03/03/2012 V16.49 FAMILY HISTORY OF MALIGNANT NEOPLASM OF OTHER 03/03/2012 EVIN CHRISTY APRNA S V16.49 FAMILY HISTORY OF MALIGNANT NEOPLASM OF OTHER 03/03/2012 EVIN CHRISTY APRNA S V16.49 FAMILY HISTORY OF MALIGNANT NEOPLASM OF OTHER 03/03/2012 BELGICA CHRISTY APRNNDA S V16.49 FAMILY HISTORY OF MALIGNANT NEOPLASM OF OTHER 03/29/2012 787.91 DIARRHEA 03/29/2012 BELGICA CHRISTY APRNNDA S 787.91 DIARRHEA 03/29/2012 ANABELL DOOLEY MD 787.91 DIARRHEA 03/29/2012 787.91 DIARRHEA 03/29/2012 787.91 DIARRHEA 03/29/2012 WESTLEY HAMMOND ENRIQUETA S 787.91 DIARRHEA 03/29/2012 BELGICA CHRISTY APRNNDA S 787.91 DIARRHEA 03/29/2012 BELGICA CHRISTY APRNNDA S 787.91 DIARRHEA 04/21/2012 BELGICA CHRISTY APRNNDA S 788.1 DYSURIA 04/21/2012 ANABELL DOOLEY MD 788.1 DYSURIA 04/21/2012 788.1 DYSURIA 04/21/2012 788.1 DYSURIA 04/21/2012 EVIN CHRISTY APRNA S 788.1 DYSURIA 04/21/2012 BELGICA CHRISTY APRNNDA S 788.1 DYSURIA 04/21/2012 EVIN CHRISTY APRNA S 788.1 DYSURIA 08/17/2012 V06.1 TDAP DX 08/17/2012 V06.1 TDAP DX 08/17/2012 ENRIQUETA CHRISTY APRN S V06.1 TDAP DX 08/17/2012 WESTLEY QUALITY ASSURANCE ANALYST, ENRIQUETA S V06.1 TDAP DX 08/17/2012 WESTLEY QUALITY ASSURANCE ANALYST, ENRIQUETA S V06.1 TDAP DX 11/11/2012 356.9 NEUROPATHY 11/11/2012 781.1 DISTURBANCES OF SENSATION OF SMELL AND TASTE 11/11/2012 WESTLEY HAMMOND, ENRIQUETA S 356.9 NEUROPATHY 11/11/2012 WESTLEY HAMMOND, ENRIQUETA S 781.1 DISTURBANCES OF SENSATION OF SMELL AND TASTE 11/11/2012 WESTLEY HAMMOND, ENRIQUETA S 356.9 NEUROPATHY 11/11/2012 WESTLEY HAMMOND, ENRIQUETA S 781.1 DISTURBANCES OF SENSATION OF SMELL AND TASTE 11/11/2012 BELGICA CHRISTY APRNNDA S 356.9 NEUROPATHY 11/11/2012 BELGICA CHRISTY APRNNDA S 781.1 DISTURBANCES OF SENSATION OF SMELL AND TASTE 05/10/2013 ENRIQUETA CHRISTY APRN S 212.3 BENIGN NEOPLASM OF BRONCHUS AND LUNG 01/19/2018 ENRIQUETA CHRISTY SOFTWARE ENGINEER KERNEL Ot 492.8 EMPHYSEMA NEC 01/19/2018 ENRIQUETA CHRISTY SOFTWARE ENGINEER KERNEL Ot 793.11 SOLITARY PULMONARY NODULE 01/21/2018 ENRIQUETA CHRISTY SOFTWARE ENGINEER KERNEL Ot K80.20 CALCULUS OF GALLBLADDER W/O CHOLECYSTITI 01/21/2018 ENRIQUETA CHRISTYP Ot K82.8 OTHER SPECIFIED DISEASES OF GALLBLADDER Procedures Code Description [place] [address] ROUTINE VENIPUNCTURE 02/23/2012 02190 TSH 02/24/2012 67958 XRAY CHEST 2 VIEW 03/03/2012 Wilmer Valdivia 03/03/2012 71758 URINE DRUG SCREEN (IN-HOUSE ) 03/03/2012 35702 ROUTINE VENIPUNCTURE 03/03/2012 41203 CBC 03/03/2012 52185 CRP 03/04/2012 89832 T4 03/04/2012 72913 ROUTINE VENIPUNCTURE 04/21/2012 28028 UA W/ CULTURE IF INDICATED 04/21/2012 25787 ESR/SED RATE 04/21/2012 78424 TSH 04/22/2012 74721 T4 FREE 04/22/2012 62450 ROUTINE VENIPUNCTURE 06/01/2012 00274 URINE DRUG SCREEN (IN-HOUSE ) 06/01/2012 28934 CMP 06/01/2012 5665942 GFR CALC (RESULT ONLY) 06/01/2012 62930 T4 FREE 06/01/2012 67557 TSH 06/01/2012 11540 UA W/MICROSCOPY 06/01/[address] CHEST W/DYE 06/02/[address] ABDOMEN & PELVIS W/ & W/ O CONTRAST 06/02/2012 20861 ROUTINE VENIPUNCTURE 08/17/2012 30681 TSH 08/17/2012 30703 CELIAC DISEASE ANALYZER 08/19/[address] CHEST W/DYE 05/13/2013 Results Test Result Range TSH - 04/08/16 17:36 TSH 192.500 uIU/mL 0.450-4.500 TSH+Free T4 - 06/16/16 16:47 TSH 0.498 uIU/mL 0.450-4.500 T4,Free(Direct) 1.81 ng/dL 0.82-1.77 TSH+Free T4 - 10/03/16 09:04 TSH 1.680 uIU/mL 0.450-4.500 T4,Free(Direct) 1.34 ng/dL 0.82-1.77 CMP - 06/10/17 10:03 GLUCOSE 95 mg/dL 65-99 UREA NITROGEN (BUN) 9 mg/dL 7-25 CREATININE 0.77 mg/dL 0.50-1.10 eGFR NON-AFR. [place] 95 mL/min/1.73m2 > OR=60 eGFR 110 mL/min/1.73m2 > OR=60 BUN/CREATININE RATIO NOT APPLICABLE (calc) 6-22 SODIUM 140 mmol/L 135-146 POTASSIUM 4.3 mmol/L 3.5-5.3 CHLORIDE 105 mmol/L 98-110 CARBON DIOXIDE 28 mmol/L 20-31 CALCIUM 9.9 mg/dL 8.6-10.2 PROTEIN, TOTAL 7.2 g/dL 6.1-8.1 ALBUMIN 4.9 g/dL 3.6-5.1 GLOBULIN 2.3 g/dL (calc) 1.9-3.7 ALBUMIN/GLOBULIN RATIO 2.1 (calc) 1.0-2.5 BILIRUBIN, TOTAL 1.1 mg/dL 0.2-1.2 ALKALINE PHOSPHATASE 59 U/L 33-115 AST 16 U/L 10-30 ALT 17 U/L 6-29 Encounters ACCT No. Visit Date/Time Discharge Status Pt. Type Provider Facility Loc./Unit Complaint [id number] 05/10/2013 08:27:00 05/10/2013 23:59:59 CLS Outpatient EVIN CHRISTY APRNA Sandy [id number] 01/24/2013 11:57:00 01/24/2013 23:59:59 CLS Outpatient ENRIQUETA CHRISTY APRN [id number] 12/15/2012 14:07:00 12/15/2012 23:59:59 CLS Outpatient WESTLEY HAMMOND ENRIQUETA Delgado [id number] 06/01/2012 10:43:00 06/01/2012 23:59:59 CLS Outpatient ANABELL DOOLEY MD [id number] 04/21/2012 14:22:00 04/21/2012 23:59:59 CLS Outpatient WESTLEY MANISHENRIQUETA Sandy [id number] 03/29/2012 09:22:00 03/29/2012 23:59:59 CLS Outpatient [id number] 09/04/2011 07:59:00 09/04/2011 23:59:59 CLS Outpatient WESTLEY HAMMONDENRIQUETA Sandy [id number] 11/12/2012 08:39:00 Document Registration [id number] 08/17/2012 08:46:00 Document Registration [id number] 04/09/2016 08:06:00 Document Registration [id number] 06/17/2016 09:14:00 Document Registration [id number] 10/04/2016 08:07:00 Document Registration [id number] 05/12/2013 09:30:00 05/12/2013 23:59:59 CLS Outpatient ENRIQUETA CHRISTY [facility] RAD PULMONARY NODULE [id number] 01/21/2018 10:45:00 PEN Preadmit WILMER SINGLETON MD [facility] SDC GALLSTONES,WALL THICKENING [id number] 01/20/2018 15:54:00 ACT Outpatient WILMER SINGLETON MD [facility] PREOP GALLSTONES [id number] 01/20/2018 10:12:00 ACT Outpatient ENRIQUETA CHRISTY [facility] RAD RUQ ABD PAIN [id number] 01/19/2018 10:08:00 PEN Preadmit ENRIQUETA CHRISTY [facility] CARD RUQ ABDOMINAL PAIN [id number] 06/10/2017 09:00:00 06/10/2017 23:59:59 CLS Outpatient ENRIQUETA CHRISTY APRN [facility] [place] [id number] 06/10/2017 09:00:00 Document Registration
--- OUTSIDE RECORDS SUMMARY | 2018-01-21 09:35 | XMS REPORT ---
Author Author ENRIQUETA CHRISTY [facility] Address [address] [place] [address] Care Team Providers Care Barrel Handler Name Role Phone ENRIQUETA CHRISTY Unavailable PROBLEMS Type Condition ICD9-CM Code [id number] Code Onset Dates Condition Status SNOMED Code Problem Cervicalgia 723.1 Active 28004862 Problem Family history of other malignant neoplasm V16.49 Active 771795406 Problem Postablative hypothyroidism E89.0 Active 175694421 Problem Financial problems Z59.8 Active 365408013 Problem Cannabis dependence, unspecified abuse 304.30 Active 09816897 Problem Nondependent tobacco use disorder 305.1 Active 393297969 Problem Weight loss R63.4 Active 289953534 Problem Hypothyroid E03.9 Active [id number] ALLERGIES No Information SOCIAL HISTORY Never Assessed PLAN OF CARE VITAL SIGNS MEDICATIONS No Known Medications RESULTS No Results PROCEDURES No Known procedures [...]
[2018-01-21 09:44] LABS: BASOPHILS % (AUTO) 0 % (0-10); EOSINOPHILS # (AUTO) 0.1 10^3/uL (0.0-0.3); EOSINOPHILS % (AUTO) 1 % (0-10); HEMATOCRIT 44 % (35-52); HEMOGLOBIN 15.3 G/DL (11.5-16.0); LYMPHOCYTES # (AUTO) 2.4 X 10^3 (1.0-4.0); LYMPHOCYTES % (AUTO) 27 % (12-44); MEAN CORPUSCULAR HEMOGLOBIN 32 PG (25-34); MEAN CORPUSCULAR HGB CONC 35 G/DL (32-36); MEAN CORPUSCULAR VOLUME 92 FL (80-99); MEAN PLATELET VOLUME 9.1 FL (7.4-10.4); MONOCYTES # (AUTO) 0.8 X 10^3 (0.0-1.0); MONOCYTES % (AUTO) 9 % (0-12); NEUTROPHILS # (AUTO) 5.7 X 10^3 (1.8-7.8); NEUTROPHILS % (AUTO) 63 % (42-75); PLATELET COUNT 391 10^3/uL (130-400); RED BLOOD COUNT 4.76 10^6/uL (4.35-5.85); RED CELL DISTRIBUTION WIDTH 12.4 % (10.0-14.5); WHITE BLOOD COUNT 9.1 10^3/uL (4.3-11.0)
[2018-01-21] MEDS ORDERED: MIDAZOLAM 2 MG/2 ML (VERSED) VIAL ONE (09:51)
[2018-01-21] MEDS ORDERED: LACTATED RINGERS 1,000 ML IV ONE ×2 (09:51→13:10)
[2018-01-21] MEDS ORDERED: fentaNYL INJECTION 100 MCG/2 ML AMP ONE (09:51)
[2018-01-21] MEDS ORDERED: ONDANSETRON 4 MG/2 ML (SDV) Z0FRAN ONE ×2 (09:51→14:10)
[2018-01-21] MEDS ORDERED: LIDOCAINE PF 2% 5 ML (XYLOCAINE) VIAL ONE (09:51)
[2018-01-21] MEDS ORDERED: ROCURONIUM 10 MG/ML 5 ML SYRINGE IV ONE (09:51)
[2018-01-21] MEDS ORDERED: proPOfol 200 MG/20 ML (DIPRIVAN) VIAL IV ONE (09:51)
[2018-01-21] MEDS ORDERED: SEVOFLURANE (ULTANE) 15 ML INHAL SOLN ONE ×6 (09:58→13:43)
[2018-01-21] MEDS ORDERED: DEXAMETHASONE 10 MG/ML (DECADRON) 1 ML VIAL ONE (09:58)
[2018-01-21 10:07] LABS: ALANINE AMINOTRANSFERASE 41 U/L (0-55); ALBUMIN 4.1 GM/DL (3.2-4.5); ALKALINE PHOSPHATASE 102 U/L (40-136); BILIRUBIN,TOTAL 0.6 MG/DL (0.1-1.0); BUN/CREATININE RATIO 11; CALCIUM 9.3 MG/DL (8.5-10.1); CARBON DIOXIDE 26 MMOL/L (21-32); CHLORIDE 104 MMOL/L (98-107); CREATININE SERUM 0.71 MG/DL (0.60-1.30); GFR ESTIMATED > 60; GLUCOSE 88 MG/DL (70-105); POTASSIUM 3.9 MMOL/L (3.6-5.0); SODIUM 139 MMOL/L (135-145); TOTAL PROTEIN 6.8 GM/DL (6.4-8.2)
[2018-01-21] MEDS ORDERED: [UNRECOGNIZED DRUG - CODE] PO (10:23)
[2018-01-21] MEDS ORDERED: CYCL10TA9 PO (10:23)
[2018-01-21] MEDS ORDERED: LEVO150T6 PO (10:23)
[2018-01-21] MEDS ORDERED: metroNIDAZOLE 500MG/100ML IVPB 100 ML IV ONE (10:30)
[2018-01-21] MEDS ORDERED: ceFAZolin INJECTION 1,000 MG in NS (IVPB) 50 ML IV ONE (10:30)
[2018-01-21] MEDS ORDERED: BUP/EPI 0.5% 1:200,000 (SENSORCAINE) 30 ML VIAL ONE (10:41)
[2018-01-21] MEDS ORDERED: ATROPINE INJ 0.4 MG/ML SDV ONE (12:58)
[2018-01-21] MEDS ORDERED: GLYCOPYRROLATE 0.2 MG/ML (ROBINUL) 2 ML VIAL ONE (13:44)
[2018-01-21] MEDS ORDERED: NEOSTIGMINE 1 MG/ML 5 ML SYRINGE ONE (13:44)
--- NOTE | 2018-01-21 13:54 | Diagnostic Imaging Report ---
INDICATION: Undergoing cholecystectomy for abdominal pain and cholelithiasis. FINDINGS: 2 intraoperative cholangiogram images are submitted. There is cannulation of the extra hepatic biliary tree. Images demonstrate contrast opacification of the biliary system. Biliary tree is not significantly dilated. There was no persistent filling defect to indicate a retained stone. Flow was present into the duodenum. IMPRESSION: Negative laparoscopic cholangiogram. Dictated by: Dictated on workstation # [id number]
--- NOTE | 2018-01-21 14:00 | Operative Report ---
Operative Report Date of Procedure/Surgery Jan 21, 2018 Surgeon (s) KYLE SINGLETON MD Telecommunications Equipment Installer (s): Katherine Witt (Med Student III) Post-Operative Diagnosis Same with normal cholangiogram Procedure Performed Robotic-assisted cholecystectomy Intraoperative cholangiogram ( normal) Description of Procedure Anesthesia Type: General Estimated blood loss (mL): Minimal Specimen(s) collected/removed Gallbladder Description of the Procedure Indication for the procedure: This lady presented with gallstones and thickening of the gallbladder wall, indicating chronic cholecystitis. Due to her persistent symptoms, she was offered from cholecystectomy with cholangiogram , using minimal invasive technique with robotic assistance. Informed consent was obtained after reviewing the operative details and complications of wound infection and bile leak. Description of the procedure: She was placed supine on the operative table and general anesthesia induced. A gram of Ancef and 500 mg of Flagyl were administered intravenously as prophylaxis against wound infection. Sequential compression devices were placed around her legs, to minimize the risk of venous thrombosis. Abdomen was prepared and draped in the usual sterile manner. Pneumoperitoneum was established using a Veress needle introduced over the supraumbilical region. Intra-abdominal pressure was maintained at 15 mmHg. A 12 mm trocar was placed and anatomy visualized using the high definition, 3- dimensional laparoscope, associated with the da Uli system. Under direct view , I placed an 8 mm trocar over each side of the abdomen, followed by a 5 mm trocar over the left upper quadrant. The patient was then turned into reverse Trendelenburg position and the robotic system docked in place. Gallbladder was rather thick and elongated, due to chronic cholecystitis. The fundus was retracted cephalad and the infundibulum grasped with Cadiere forceps. Peritoneum overlying Calot's triangle was incised using the hook cautery, delineating the cystic duct and artery. Cholangiogram was obtained using a Taut catheter. It revealed normal anatomy with no filling defects within the common bile duct. The contrast flowed freely into the duodenum. The catheter was then removed and the cystic duct controlled using locking clips. Cystic artery was then controlled in a similar fashion. Cholecystectomy was completed using the hook cautery. The gallbladder was placed in an Endo Catch bag and removed via the supraumbilical trocar site. The fascia over this incision had to be extended cephalad to allow retrieval of the gallbladder with a large stone within it. It was then closed using #1 Vicryl. The fascia over each of the 8 mm incision on the sides was closed using the same material. Skin incisions were closed using 4-0 Vicryl, in a subcuticular fashion . 0.5 percent Marcaine with epinephrine was infiltrated along the incisions, both preemptively and at the conclusion of the operation. She tolerated the procedure well, was extubated in the operating room and taken to the recovery room in a stable condition Findings of the Procedure see op report Allergies and Home Medications Allergies Coded Allergies: trazodone (Unverified Adverse Reaction, Unknown, 01/21/18) Home Medications Cyclobenzaprine HCl 10 Mg Tablet, 10 MG PO TID PRN for SPASMS, (Reported) Dempsey Seal/Echinacea Purpurea 1 Each Capsule, 1 EACH PO DAILY, (Reported) Levothyroxine Sodium 150 Mcg Tablet, 150 MCG PO DAILY, (Reported) Patient Home Medication List Home Medication List Reviewed: Yes KYLE SINGLETON MD Jan 21, 2018 14:00
[2018-01-21] MEDS ORDERED: ACHD5005 PO (14:01)
--- NOTE | 2018-01-21 14:02 | Discharge Inst-Simple/Standard ---
Discharge Inst-Standard Discharge Medications New, Converted or Re-Newed RX: RX on Chart Patient Instructions/Follow Up Plan of Care/Instructions/FU: Band-Aids off in 48 hours. Incentive spirometry. Follow-up in 3 weeks. Activity as Tolerated: Yes Discharge Diet: No Restrictions KYLE SINGLETON MD Jan 21, 2018 14:01
[2018-01-21] MEDS ORDERED: KETOROLAC 30 MG/ML VIAL ONE (14:08)
--- NOTE | 2018-01-21 14:13 | Anesthesia-General Post-Op ---
General Patient Condition Mental Status/LOC: Same as Preop Cardiovascular: Satisfactory Nausea/Vomiting: Absent Respiratory: Satisfactory Pain: Controlled Complications: Absent Post Op Complications Complications None Follow Up Care/Instructions Patient Instructions None needed. Anesthesia/Patient Condition Patient Condition Patient is doing well, no complaints, stable vital signs, no apparent adverse anesthesia problems. No complications reported per nursing. FRED CARTER CRNA Jan 21, 2018 14:13
[2018-01-21] MEDS ORDERED: ONDANSETRON 4 MG/2 ML (SDV) Z0FRAN IVP PRN (14:15)
[2018-01-21] MEDS ORDERED: MEPERIDINE (DEMEROL) INJ 50 MG/ML IVP ONE (14:15)
[2018-01-21] MEDS ORDERED: morphine INJ 10 MG/ML 1ML (SYR OR VIAL) IVP ONE (14:15)
[2018-01-21] MEDS ORDERED: KETOROLAC 30 MG/ML VIAL IVP ONE (14:15)
[2018-01-21] MEDS ORDERED: fentaNYL INJECTION 100 MCG/2 ML AMP IVP ONE (14:15)
[2018-01-21 15:00] VITALS: BP 127/83
[2018-01-21 15:30] VITALS: BP 114/68
[2018-01-21 16:00] VITALS: BP 111/65
== END 2018-01-21 16:00 | disposition home or self-care (01) ==
LOC: SDC 08:49
PROVIDERS: ATTEND Surgery
DX: K80.10 Calculus of gallbladder with chronic cholecystitis without obstruction (principal); G56.93 Unspecified mononeuropathy of bilateral upper limbs; F17.210 Nicotine dependence, cigarettes, uncomplicated
CPT/HCPCS: 36415; 80053; 84703; 85025; 87081; 88304; 94664

== ENCOUNTER 2018-05-27 10:15 | Outpatient (CLI) | payer BC ==
[~2018-05-27] VITALS: Ht 165.1 cm; Wt 50.3 kg
[~2018-05-27 10:15] MED LIST changes: +ACHD5005 PO; +CYCL10TA9 PO; +LEVO150T6 PO; +[UNRECOGNIZED DRUG - CODE] PO
== END 2018-05-27 10:23 | disposition home or self-care (01) ==
LOC: PREOP 10:15
PROVIDERS: ATTEND Surgery
DX: Z01.818 Encounter for other preprocedural examination (principal)

== ENCOUNTER 2018-05-31 07:26 | Day surgery (SDC) | payer BC ==
[~2018-05-31] VITALS: Ht 165.1 cm; Wt 50.3 kg
--- OUTSIDE RECORDS SUMMARY | 2018-05-31 07:31 | XMS REPORT ---
Author Author ENRIQUETA CHRISTY Organization [facility] Address [address] [place] [address] Care Team Providers Care Hoseman Name Role Phone ENRIQUETA CHRISTY Unavailable PROBLEMS Type Condition ICD9-CM Code AHA63-HZ Code Onset Dates Condition Status SNOMED Code Problem Hypothyroid E03.9 Active 65429988 Problem Financial problems Z59.8 Active 710511392 Problem Panic attack F41.0 Active 479826966 Problem Seasonal allergic rhinitis due to pollen J30.1 Active 18959441 Problem Postablative hypothyroidism E89.0 Active 818225356 Problem Weight loss R63.4 Active 015134932 Problem Neuropathy G62.9 Active 192200038 Problem Other chronic pain G89.29 Active 61565823 ALLERGIES No Information ENCOUNTERS Encounter Location Date Diagnosis [place] [id number] [place] [address] 22068- 3253 07 Mar, 2018 Postablative hypothyroidism E89.0 [place] [id number] [place] [address] 12442- 7539 Mar, Postablative hypothyroidism E89.0 [place] [id number] [place] [address] 39680- 0570 Jan, [place] [id number] [place] [address] 94341- 7724 Jan, [place] [address] [address]- [address] Jan, Seasonal allergic rhinitis due to pollen J30.1 ; Other acute gastritis without hemorrhage K29.00 ; Polyp of colon, unspecified part of colon, unspecified type K63.5 ; Panic attack F41.0 ; Right upper quadrant abdominal pain R10.11 ; Postablative hypothyroidism E89.0 and Allergic conjunctivitis of right eye H10.11 [facility] [id number] [place] [address] 78660- 5513 Jun, Postablative hypothyroidism E89.0 [facility] [id number] [place] [address] 06832- 8303 28 May, 2017 Postablative hypothyroidism E89.0 ; Screening, lipid Z13.220 ; Neuropathy G62.9 ; Radiculopathy affecting upper extremity M54.10 ; Low back pain M54.5 and Other chronic pain G89.29 [facility] [id number] [place] [address] 76280- 4470 Oct, Hypothyroid E03.9 ; Ganglion cyst of right foot M67.471 and Encounter for screening mammogram for breast cancer Z12.31 [facility] [id number] [place] [address] 84251- 3914 Sep, Postablative hypothyroidism E89.0 [facility] [id number] [place] [address] 91917- 2795 Sep, Hypothyroid E03.9 [facility] [id number] [place] [address] 07036- 1212 Jun, Postablative hypothyroidism E89.0 [facility] [id number] [place] [address] 48684- 0074 Jun, [facility] [id number] [place] [address] 16233- 4412 Jun, Hypothyroid E03.9 [facility] [id number] [place] [address] 81917- 0605 Jun, Postablative hypothyroidism E89.0 [facility] [id number] [place] [address] 36484- 6104 Mar, [facility] [id number] [place] [address] 68494- 8208 Mar, [facility] [address] [place] [address]- 8664 Mar, Hypothyroid E03.9 [facility] [address] 95100- 8044 Dec, [facility] [id number] [place] [address] 43597 -3001 Nov, Food poisoning, accidental or unintentional, initial encounter T62.91XA [facility] [address] 83611- 2496 Nov, [facility] [address] 96003- 6831 Oct, Hypothyroid E03.9 ; Weight loss R63.4 and Financial problems Z59.8 [place] [address] 61802- 7372 Jul, Gastroenteritis K52.9 [facility] [address] 60827- 4911 Apr, Hypothyroid E03.9 [facility] [address] 91953- 0354 Apr, Postablative hypothyroidism E89.0 and Upper respiratory infection J06.9 [place] [id number] [place] [address] 74397- 3279 Jan, [facility] [address] 24788- 3354 Jan, [facility] [id number] [place] [address] 38224- 8532 Dec, [place] [address] 06035- 2858 Dec, Cannabis abuse 305.20 and Major depression, recurrent 296.30 [facility] [id number] [place] [address] 22634- 3151 Dec, Fatigue 780.79 ; Weakness 780.79 ; Hoarseness of voice 784.42 ; Shortness of breath 786.05 ; Hypothyroid 244.9 ; Cervicalgia 723.1 ; Depression 311 ; Insomnia 780.52 and Hard of hearing 389.9 [facility] [id number] [place] [address] 42739- 6366 Jul, [facility] [id number] [place] [address] 544417- 3841 Jul, [facility] [address] 995060- 3009 Mar, [facility] [id number] [place] [address] 334283- 2501 Mar, [facility] [address] 306662- 0609 Jan, [facility] [id number] [place] [address] 86736- 5561 Jan, [facility] [id number] [place] [address] 57437- 7080 Jan, [facility] [id number] [place] [address] 93134- 6477 Jan, [facility] [id number] [place] [address] 37469- 5463 Dec, [facility] [id number] [place] [address] 50644- 2611 Dec, [facility] [id number] [place] [address] 15773- 4888 Dec, [facility] [id number] [place] [address] 42843- 8627 Dec, [facility] [id number] [place] [address] 797322- 2313 Nov, [facility] [id number] [place] [address] 48385- 7824 Nov, [facility] [address] [place] [address]- 6532 Nov, [facility] [place] [facility] [address] [id number] [place] [address]- 2268 Nov, [facility] [place] [facility] [address] [id number] [place] [address]- 2955 Nov, [facility] [place] [facility] [address] [id number] [place] [address]- 6812 Oct, [facility] [place] [facility] [address] [id number] [place] [address]- 2997 Oct, [facility] [place] [facility] [address] [id number] [place] [address]- 0203 Oct, [facility] [place] [facility] [address] [id number] [place] [address]- 9410 Oct, [facility] [place] [facility] [address] [id number] [place] [address]- 5862 Oct, [facility] [place] [facility] [address] [id number] [place] [address]- 5308 Oct, [facility] [place] [facility] [address] [id number] [place] [address]- 0526 Sep, [facility] [place] [facility] [address] [id number] [place] [address]- 3578 Sep, [facility] [place] [facility] [address] [id number] [place] [address]- 1244 Sep, [facility] [place] [facility] [address] [id number] [place] [address]- 2430 Sep, [facility] [place] [facility] [address] [id number] [place] [address]- 8332 August, [facility] [place] [facility] [address] [id number] [place] [address]- 2507 August, [facility] [place] [facility] [address] [id number] [place] [address]- 5142 Jul, [facility] [place] [facility] [address] [id number] [place] [address]- 8291 Jul, [facility] [place] [facility] [address] [id number] [place] [address]- 2120 Jul, [facility] [place] [facility] [address] [id number] [place] [address]- 0917 Jul, [facility] [place] [facility] [address] [id number] [place] [address]- 1072 Jul, [facility] [place] [facility] [address] [id number] [place] [address]- 5289 Jun, [facility] [place] [facility] [address] [id number] [place] [address]- 2750 Jun, [facility] [place] [facility] [address] [id number] [place] [address]- 9639 May, [facility] [place] [facility] [address] [id number] [place] [address]- 2657 May, [facility] [place] [facility] [address] [id number] [place] [address]- 6441 May, [facility] [place] [facility] [address] [id number] [place] [address]- 2085 May, [facility] [place] [facility] [address] [id number] [place] [address]- 4739 Apr, [facility] [place] [facility] [address] [id number] [place] [address]- 2792 Apr, [facility] [place] [facility] [address] [id number] [place] [address]- 5704 Apr, [facility] [place] [facility] [address] [id number] [place] [address]- 2664 Apr, [facility] [place] [facility] [address] [id number] [place] [address]- 5168 Apr, [facility] [place] [facility] [address] [id number], [place] [address]- 4399 Apr, [facility] [place] [facility] [address] [id number] [place] [address]- 9940 Mar, [facility] [place] [facility] [address] [id number] [place] [address]- 0602 Mar, [facility] [place] [facility] [address] [facility] [id number] [place] [address]- 7412 Mar, [facility] [place] [facility] [address] [id number] [place] [address]- 6573 Mar, [facility] [place] [facility] [address] [id number] [place] [address]- 2906 Jan, [facility] [place] [facility] [address] [id number] [place] [address]- 7615 Jan, [facility] [place] [facility] [address] [facility] [id number], [place] [address]- 2198 Jan, [facility] [place] [facility] [address] [id number], [place] [address]- 8597 Jan, [facility] [place] [facility] [address] [facility] [id number], [place] [address]- 2633 Dec, [facility] [place] [facility] [address] [facility] [id number], [place] [address]- 2640 Dec, [facility] [place] [facility] [address] [id number], [place] [address]- 6607 Nov, [facility] [place] [facility] [address] [id number], [place] [address]- 9962 Nov, [facility] [place] [facility] [address] [id number], [place] [address]- 1016 Nov, [facility] [place] [facility] [address] [facility] [id number], [place] [address]- 4530 Nov, [facility] [place] [facility] [address] [facility] [id number], [place] [address]- 1337 Nov, [facility] [place] [facility] [address] [id number] [place] [address] 2543 Nov, [facility] [place] [facility] [address] [id number] [place] [address]- 9452 Nov, [facility] [place] [facility] [address] [id number] [place] [address]- 5826 Nov, [facility] [place] [facility] [address] [id number] [place] [address]- 5963 Oct, [facility] [place] [facility] [address] [id number] [place] [address]- 5777 Oct, [facility] [place] [facility] [address] [id number] [place] [address]- 2883 Sep, [facility] [place] [facility] [address] [id number] [place] [address]- 5214 Sep, [facility] [place] [facility] [address] [id number] [place] [address]- 4096 August, [facility] [place] [facility] [address] [id number] [place] [address]- 9024 August, [facility] [place] [facility] [address] [id number] [place] [address]- 7219 Jun, [facility] [place] [facility] [address] [id number] [place] [address]- 4963 Jun, [facility] [place] [facility] [address] [id number] [place] [address]- 7266 Jun, [facility] [place] [facility] [address] [id number] [place] [address]- 5926 Jun, [facility] [place] [facility] [address] [id number] [place] [address]- 3540 May, [facility] [place] [facility] [address] [id number] [place] [address]- 6598 May, [facility] [place] [facility] [address] [id number] [place] [address]- 7834 Apr, [facility] [place] [facility] [address] [id number] [place] [address]- 3228 Apr, [facility] [place] [facility] [address] [id number] [place] [address]- 7120 Apr, [facility] [place] [facility] [address] [facility] [id number] [place] 9791 Mar, [facility] [place] [facility] [address] [id number] [place] [address]- 1117 Mar, [facility] [place] [facility] [address] [id number] [place] [address]- 7819 Mar, [facility] [place] [facility] [address] [id number] [place] [address]- 6722 Mar, [facility] [place] [facility] [address] [id number] [place] [address]- 6829 Mar, [facility] [place] [facility] [address] [id number] [place] [address]- 6159 Mar, [facility] [place] [facility] [address] [id number] [place] [address]- 2736 Feb, [facility] [place] [facility] [address] [id number] [place] [address]- 5978 Feb, [facility] [place] [facility] [address] [id number] [place] [address]- 0327 Feb, [facility] [place] [facility] [address] [id number], [place] [address]- 9795 Feb, [facility] [place] [facility] [address] [id number] [place] [address]- 0204 Feb, [facility] [place] [facility] [address] [id number] [place] [address]- 9058 Feb, [facility] [place] [facility] [address] [id number] [place] [address]- 4186 Feb, [facility] [place] [facility] [address] [id number] [place] [address]- 6479 Feb, [facility] [address] [id number] [place] [address]- 9544 Feb, [facility] [address] [id number] [place] [address]- 1196 Feb, [facility] [address] [id number] [place] [address]- 3687 Feb, [facility] [place] [facility] [address] [id number] [place] [address]- 3890 Feb, [facility] [address] [id number] [place] [address]- 1081 Jan, [facility] [address] [id number] [place] [address]- 6627 Jan, [facility] [address] [id number] [place] [address]- 6094 Sep, [facility] [address] [id number] [place] [address]- 1489 August, [facility] [address] [id number] [place] [address]- 5160 August, [facility] [address] [id number] [place] [address]- 9980 August, [facility] [address] [id number] [place] [address]- 8851 August, [facility] [address] [id number] [place] [address]- 6701 August, [facility] [place] [facility] [address] [id number] [place] [address]- 7876 August, [facility] [place] [facility] [address] [id number] [place] [address]- 7746 August, [facility] [address] [id number] [place] [address]- 2360 August, [facility] [place] [facility] [address] [id number] [place] [address]- 4071 August, [facility] [place] [facility] [address] [id number] [place] [address]- 4898 August, [facility] [place] [facility] [address] [id number] [place] [address]- 8306 Jul, [facility] [place] [facility] [address] [id number] [place] [address]- 7124 May, [facility] [place] [facility] [address] [id number] [place] 6888 Apr, [facility] [place] [facility] [address] [id number] [place] [address]- 2848 Apr, [facility] [place] [facility] [address] [facility] [id number] [place] [address]- 0289 Mar, [facility] [place] [facility] [address] [id number], [place] [address]- 1735 Feb, [facility] [place] [facility] [address] [facility] [id number] [place] [address]- 9999 Feb, [facility] [place] [facility] [address] [facility] [id number], [place] [address]- 5158 Jan, [facility] [place] [facility] [address] [facility] [id number], [place] [address]- 7995 May, [facility] [place] [facility] [address] [id number], [place] [address]- 6704 Feb, [facility] [place] [facility] [address] [id number], [place] [address]- 6255 Mar, [facility] [place] [facility] [address] [id number], [place] [address]- 5642 Mar, [facility] [place] [facility] [address] [facility] [id number], [place] [address]- 8540 Jul, [facility] [place] [facility] [address] [id number], [place] [address]- 2546 Jun, IMMUNIZATIONS No Known Immunizations SOCIAL HISTORY Never Assessed REASON FOR VISIT Medication refill request PLAN OF CARE VITAL SIGNS MEDICATIONS Medication Instructions Dosage Frequency Start Date End Date Duration Status Levothyroxine Sodium 125 MCG Orally Once a day 1 tablet on an empty stomach in the morning 24h 30 Mar, 2016 60 days Active RESULTS No Results PROCEDURES No [...]
--- OUTSIDE RECORDS SUMMARY | 2018-05-31 07:31 | XMS REPORT ---
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 Name Role Phone ENRIQUETA CHRISTY Unavailable PROBLEMS Type Condition ICD9-CM Code GUF99-ZP Code Onset Dates Condition Status SNOMED Code Problem Hypothyroid E03.9 Active 54553550 Problem Financial problems Z59.8 Active 325112528 Problem Panic attack F41.0 Active 190917216 Problem Seasonal allergic rhinitis due to pollen J30.1 Active 45839506 Problem Postablative hypothyroidism E89.0 Active 813489170 Problem Weight loss R63.4 Active 009283263 Problem Neuropathy G62.9 Active 944059883 Problem Other chronic pain G89.29 Active 69131059 ALLERGIES No Information ENCOUNTERS Encounter Location Date Diagnosis [place] [id number] [place] [address] 87902- 5265 Mar, Postablative hypothyroidism E89.0 [place] [id number] [place] [address] 10519- 7720 Jan, [place] [id number] [place] [address] 87984- 5817 Jan, [place] [address] 07113- 7192 Jan, Seasonal allergic rhinitis due to pollen J30.1 ; Other acute gastritis without hemorrhage K29.00 ; Polyp of colon, unspecified part of colon, unspecified type K63.5 ; Panic attack F41.0 ; Right upper quadrant abdominal pain R10.11 ; Postablative hypothyroidism E89.0 and Allergic conjunctivitis of right eye H10.11 [place] [id number] [place] [address] 96953- 4350 Jun, Postablative hypothyroidism E89.0 [facility] [id number] [place] [address] 89037- 5976 May, Postablative hypothyroidism E89.0 ; Screening, lipid Z13.220 ; Neuropathy G62.9 ; Radiculopathy affecting upper extremity M54.10 ; Low back pain M54.5 and Other chronic pain G89.29 [facility] [id number] [place] [address] 40724- 6478 Oct, Hypothyroid E03.9 ; Ganglion cyst of right foot M67.471 and Encounter for screening mammogram for breast cancer Z12.31 [facility] [id number] [place] [address] 73098- 5537 Sep, Postablative hypothyroidism E89.0 [facility] [id number] [place] [address] 76255- 2819 Sep, Hypothyroid E03.9 [facility] [id number] [place] [address] 13420- 7951 Jun, Postablative hypothyroidism E89.0 [facility] [id number] [place] [address] 30803- 9757 Jun, [facility] [id number] [place] [address] 73751- 3259 Jun, Hypothyroid E03.9 [facility] [id number] [place] [address] 40661- 2176 Jun, Postablative hypothyroidism E89.0 [facility] [id number] [place] [address] 94168- 5190 Mar, [facility] [id number] [place] [address] 99076- 5341 Mar, [facility] [id number] [place] [address] 87038- 2882 Mar, Hypothyroid E03.9 [facility] [id number] [place] [address] 08373- 7969 Dec, [facility] [id number] [place] [address] 07788 -0800 Nov, Food poisoning, accidental or unintentional, initial encounter T62.91XA [facility] [address] 81339- 2858 Nov, [facility] [address] 53829- 3627 Oct, Hypothyroid E03.9 ; Weight loss R63.4 and Financial problems Z59.8 [place] [address] 99131- 0187 Jul, Gastroenteritis K52.9 [place] [address] 19481- 1034 Apr, Hypothyroid E03.9 [place] [address] 22670- 2705 Apr, Postablative hypothyroidism E89.0 and Upper respiratory infection J06.9 [place] [address] 63544- 4314 Jan, [facility] [address] 34095- 4745 Jan, [place] [address] 30696- 8892 Dec, [place] [address] 46928- 3188 Dec, Cannabis abuse 305.20 and Major depression, recurrent 296.30 [place] [address] 93207- 8167 Dec, Fatigue 780.79 ; Weakness 780.79 ; Hoarseness of voice 784.42 ; Shortness of breath 786.05 ; Hypothyroid 244.9 ; Cervicalgia 723.1 ; Depression 311 ; Insomnia 780.52 and Hard of hearing 389.9 [facility] [address] [id number] [place] [address]- 5439 14 Jul, 2014 [facility] [place] [facility] [address] [id number] [place] [address]- 1365 Jul, [facility] [place] [facility] [address] [id number] [place] [address]- 0401 Mar, [facility] [place] [facility] [address] [id number] [place] [address]- 1160 Mar, [facility] [place] [facility] [address] [id number] [place] [address]- 1504 Jan, [facility] [place] [facility] [address] [id number] [place] [address]- 9284 Jan, [facility] [place] [facility] [address] [facility] [id number] [place] [address]- 9516 Jan, [facility] [place] [facility] [address] [id number] [place] [address]- 6084 Jan, [facility] [place] [facility] [address] [id number] [place] [address]- 9881 Dec, [facility] [place] [facility] [address] [id number] [place] [address]- 6190 Dec, [facility] [place] [facility] [address] [facility] [id number] [place] [address]- 9013 Dec, [facility] [place] [facility] [address] [id number] [place] [address]- 4664 Dec, [facility] [place] [facility] [address] [id number] [place] [address]- 5454 Nov, [facility] [place] [facility] [address] [id number] [place] [address]- 9622 Nov, [facility] [place] [facility] [address] [id number] [place] [address]- 8268 Nov, [facility] [place] [facility] [address] [id number] [place] [address]- 2546 Nov, [facility] [place] [facility] [address] [id number] [place] [address]- 7744 Nov, [facility] [place] [facility] [address] [id number] [place] [address]- 0793 Oct, [facility] [place] [facility] [address] [id number] [place] [address]- 2937 Oct, [facility] [place] [facility] [address] [id number] [place] [address]- 0006 Oct, [facility] [place] [facility] [address] [id number] [place] [address]- 0927 Oct, [facility] [place] [facility] [address] [id number] [place] [address]- 5581 Oct, [facility] [place] [facility] [address] [id number] [place] 7042 Oct, [facility] [place] [facility] [address] [id number] [place] [address]- 3274 Sep, [facility] [place] [facility] [address] [id number] [place] [address]- 4131 Sep, [facility] [place] [facility] [address] [id number] [place] [address]- 4388 Sep, [facility] [place] [facility] [address] [id number] [place] [address]- 9672 Sep, [facility] [place] [facility] [address] [id number] [place] [address]- 0967 August, [facility] [place] [facility] [address] [id number] [place] [address]- 4258 August, [facility] [place] [facility] [address] [id number] [place] [address]- 9258 Jul, [facility] [place] [facility] [address] [id number] [place] [address]- 0272 Jul, [facility] [place] [facility] [address] [id number] [place] [address]- 8500 Jul, [facility] [place] [facility] [address] [id number] [place] [address]- 9540 Jul, [facility] [place] [facility] [address] [id number] [place] 0656 Jul, [facility] [place] [facility] [address] [id number] [place] [address]- 8690 Jun, [facility] [place] [facility] [address] [id number] [place] [address]- 6538 Jun, [facility] [place] [facility] [address] [id number] [place] [address]- 6324 May, [facility] [place] [facility] [address] [id number] [place] [address]- 1664 May, [facility] [place] [facility] [address] [id number] [place] [address]- 6777 May, [facility] [place] [facility] [address] [id number] [place] [address]- 7037 May, [facility] [place] [facility] [address] [id number] [place] [address]- 6349 Apr, [facility] [place] [facility] [address] [id number] [place] [address]- 8846 Apr, [facility] [place] [facility] [address] [id number] [place] [address]- 6792 Apr, [facility] [place] [facility] [address] [id number] [place] [address]- 8936 Apr, [facility] [place] [facility] [address] [id number] [place] [address]- 6796 Apr, [facility] [place] [facility] [address] [id number] [place] [address]- 5376 Apr, [facility] [place] [facility] [address] [id number] [place] [address]- 4326 Mar, [facility] [place] [facility] [address] [id number] [place] [address]- 6712 Mar, [facility] [place] [facility] [address] [id number] [place] [address]- 8574 Mar, [facility] [place] [facility] [address] [id number] [place] [address]- 6914 Mar, [facility] [place] [facility] [address] [id number] [place] [address]- 9921 Jan, [facility] [place] [facility] [address] [id number] [place] [address]- 8272 Jan, [facility] [place] [facility] [address] [id number] [place] [address]- 2526 Jan, [facility] [place] [facility] [address] [id number] [place] [address]- 3574 Jan, [facility] [place] [facility] [address] [id number] [place] [address]- 0980 Dec, [facility] [place] [facility] [address] [id number] [place] [address]- 4417 Dec, [facility] [place] [facility] [address] [id number] [place] [address]- 3347 Nov, [facility] [place] [facility] [address] [id number] [place] [address]- 9919 Nov, [facility] [place] [facility] [address] [id number] [place] [address]- 4132 Nov, [facility] [place] [facility] [address] [id number] [place] [address]- 7396 Nov, [facility] [place] [facility] [address] [id number] [place] [address]- 1990 Nov, [facility] [place] [facility] [address] [id number] [place] [address]- 0184 Nov, [facility] [place] [facility] [address] [id number] [place] [address] 2547 Nov, [facility] [address] [id number] [place] [address]- 6191 Nov, [facility] [place] [facility] [address] [id number] [place] [address]- 1419 Oct, [facility] [address] [id number] [place] [address]- 7399 Oct, [facility] [place] [facility] [address] [id number] [place] [address]- 3712 Sep, [facility] [address] [id number] [place] [address]- 0720 Sep, [facility] [address] [id number] [place] [address]- 6326 August, [facility] [address] [id number] [place] [address]- 5530 August, [facility] [address] [id number] [place] [address]- 2347 Jun, [facility] [address] [id number] [place] [address]- 3509 Jun, [facility] [address] [id number] [place] [address]- 5285 Jun, [facility] [place] [facility] [address] [id number] [place] [address]- 2549 Jun, [facility] [place] [facility] [address] [id number] [place] [address]- 1977 May, [facility] [place] [facility] [address] [id number] [place] [address]- 8951 May, [facility] [place] [facility] [address] [id number] [place] [address]- 2546 Apr, [facility] [place] [facility] [address] [id number] [place] [address]- 5045 Apr, [facility] [place] [facility] [address] [id number] [place] [address]- 7124 Apr, [facility] [place] [facility] [address] [id number] [place] 6270 Mar, [facility] [place] [facility] [address] [id number] [place] [address]- 5941 Mar, [facility] [place] [facility] [address] [id number] [place] [address]- 3202 Mar, [facility] [place] [facility] [address] [id number] [place] [address]- 6726 Mar, [facility] [place] [facility] [address] [id number] [place] [address]- 8082 Mar, [facility] [place] [facility] [address] [id number] [place] [address]- 9883 Mar, [facility] [place] [facility] [address] [id number] [place] [address]- 9005 Feb, [facility] [place] [facility] [address] [id number] [place] [address]- 0661 Feb, [facility] [place] [facility] [address] [id number] [place] [address]- 2368 Feb, [facility] [place] [facility] [address] [id number] [place] [address]- 9355 Feb, [facility] [place] [facility] [address] [id number] [place] [address]- 7034 Feb, [facility] [place] [facility] [address] [id number] [place] [address]- 0674 Feb, [facility] [place] [facility] [address] [id number] [place] [address]- 5679 Feb, [facility] [place] [facility] [address] [id number] [place] [address]- 2707 Feb, [facility] [place] [facility] [address] [id number] [place] [address]- 0437 Feb, [facility] [place] [facility] [address] [id number] [place] [address]- 7899 Feb, [facility] [place] [facility] [address] [id number] [place] [address]- 6567 Feb, [facility] [place] [facility] [address] [id number] [place] [address]- 6281 Feb, [facility] [place] [facility] [address] [id number] [place] [address]- 0481 Jan, [facility] [place] [facility] [address] [id number] [place] 0210 Jan, [facility] [place] [facility] [address] [id number] [place] [address]- 2876 Sep, [facility] [place] [facility] [address] [id number] [place] [address]- 1517 August, [facility] [place] [facility] [address] [id number] [place] [address]- 3231 August, [facility] [place] [facility] [address] [id number] [place] [address]- 2265 August, [facility] [place] [facility] [address] [id number] [place] [address]- 5109 August, [facility] [place] [facility] [address] [id number] [place] [address]- 3608 August, [facility] [place] [facility] [address] [id number] [place] [address]- 0716 August, [facility] [place] [facility] [address] [id number] [place] [address]- 2508 August, [facility] [place] [facility] [address] [id number] [place] [address]- 8464 August, [facility] [place] [facility] [address] [id number] [place] [address]- 4884 August, [facility] [place] [facility] [address] [place] [address] 2546 August, [facility] [address] [place] [address]- 9406 Jul, [facility] [address] [facility] [id number] [place] [address]- 2546 May, [facility] [address] [place] [address]- 0566 Apr, [facility] [address] [facility] [id number] [place] [address]- 6426 Apr, [facility] [address] [place] [address]- 6056 Mar, [facility] [id number] [address]- 0206 Feb, [facility] [address] [place] [address]- 7558 Feb, [facility] [address] [id number] [address]- 2071 Jan, [facility] [address] [place] [address]- 0419 May, [facility] [address] [place] [address]- 0151 Feb, [facility] [address] [place] [address]- 5795 Mar, [facility] [address] [id number] [address]- 7574 Mar, [facility] [address] [address]- 6146 Jul, [facility] [address] [id number] [address]- 9106 Jun, IMMUNIZATIONS No Known Immunizations SOCIAL HISTORY Never Assessed REASON FOR VISIT PLAN OF CARE VITAL SIGNS MEDICATIONS Medication [...]
--- OUTSIDE RECORDS SUMMARY | 2018-05-31 07:32 | XMS REPORT ---
Author Author ENRIQUETA CHRISTY Organization [facility] Address [address] [place] [address] Care Team Providers Care Patient Scheduling Coordinator Name Role Phone ENRIQUETA CHRISTY Unavailable PROBLEMS Type Condition ICD9-CM Code SWP64-CI Code Onset Dates Condition Status SNOMED Code Problem Hypothyroid E03.9 Active 09646053 Problem Financial problems Z59.8 Active 472956629 Problem Panic attack F41.0 Active 211411119 Problem Seasonal allergic rhinitis due to pollen J30.1 Active 16282357 Problem Postablative hypothyroidism E89.0 Active 310329124 Problem Weight loss R63.4 Active 993068478 Problem Neuropathy G62.9 Active 018044301 Problem Other chronic pain G89.29 Active 26725444 ALLERGIES Substance Reaction Event Type Date Status Trazodone HCl jittery Drug Allergy Jan, Active ENCOUNTERS Encounter Location Date Diagnosis [place] [address] [address] Jan, [place] [address] [place] [id number] [place] [address] 41394- 6886 Jan, [place] [address] [place] [id number] [place] [address] 19551- 4470 Jan, Seasonal allergic rhinitis due to pollen J30.1 ; Other acute gastritis without hemorrhage K29.00 ; Polyp of colon, unspecified part of colon, unspecified type K63.5 ; Panic attack F41.0 ; Right upper quadrant abdominal pain R10.11 ; Postablative hypothyroidism E89.0 and Allergic conjunctivitis of right eye H10.11 [place] [address] [place] [id number] [place] [address] 98944- 0005 Jun, Postablative hypothyroidism E89.0 [place] [address] [place] [address] 28 May, 2017 Postablative hypothyroidism E89.0 ; Screening, lipid Z13.220 ; Neuropathy G62.9 ; Radiculopathy affecting upper extremity M54.10 ; Low back pain M54.5 and Other chronic pain G89.29 [facility] [address] [address] Oct, Hypothyroid E03.9 ; Ganglion cyst of right foot M67.471 and Encounter for screening mammogram for breast cancer Z12.31 [facility] [address] [place] [id number] [place] [address] 97485- 1308 Sep, Postablative hypothyroidism E89.0 [facility] [address] [place] [id number] [place] [address] 30279- 5202 Sep, Hypothyroid E03.9 [facility] [address] [place] [id number] [place] [address] 89648- 0613 Jun, Postablative hypothyroidism E89.0 [facility] [address] [place] [id number] [place] [address] 01728- 7330 Jun, [facility] [address] [place] [id number] [place] [address] 21409- 5761 Jun, Hyp[address]roid E03.9 [facility] [address] [place] [id number] [place] [address] 14832- 6779 Jun, Postablative hypothyroidism E89.0 [facility] [address] [place] [id number] [place] [address] 28672- 3447 Mar, [facility] [id number] [place] [address] 43394- 4312 Mar, [facility] [address] [place] [id number] [place] [address] 40650- 7664 Mar, Hypothyroid E03.9 [facility] [id number] [address] 7100 Dec, [facility] [id number] [place] [address] 71755 -4716 Nov, Food poisoning, accidental or unintentional, initial encounter T62.91XA [place] [address] [place] [id number] [place] [address] 92605- 8960 Nov, [facility] [address] [address]- 0617 Oct, Hypothyroid E03.9 ; Weight loss R63.4 and Financial problems Z59.8 [place] [address] 59420- 6120 Jul, Gastroenteritis K52.9 [place] [address] 05843- 2321 Apr, Hypothyroid E03.9 [place] [address] 40171- 5347 Apr, Postablative hypothyroidism E89.0 and Upper respiratory infection J06.9 [place] [address] [place] [id number] [place] [address] 63011- 2852 Jan, [place] [address] 49207- 5919 Jan, [place] [address] [place] [id number] [place] [address] 59363- 1150 Dec, [place] [address] 26656- 9848 Dec, Cannabis abuse 305.20 and Major depression, recurrent 296.30 [place] [address] [place] [id number] [place] [address] 57657- 4024 Dec, Fatigue 780.79 ; Weakness 780.79 ; Hoarseness of voice 784.42 ; Shortness of breath 786.05 ; Hypothyroid 244.9 ; Cervicalgia 723.1 ; Depression 311 ; Insomnia 780.52 and Hard of hearing 389.9 [place] [address] 20862- 0730 Jul, [facility] [place] [facility] [address] [id number] [place] [address]- 1842 Jul, [facility] [place] [facility] [address] [id number] [place] [address] Mar, [facility] [place] [facility] [address] [id number] [place] [address]- 1810 Mar, [facility] [place] [facility] [address] [id number] [place] [address]- 6015 Jan, [facility] [place] [facility] [address] [id number] [place] [address]- 1491 Jan, [facility] [place] [facility] [address] [id number] [place] [address]- 9990 Jan, [facility] [place] [facility] [address] [id number] [place] [address]- 5172 Jan, [facility] [place] [facility] [address] [id number] [place] [address]- 5021 Dec, [facility] [place] [facility] [address] [id number] [place] [address]- 7819 Dec, [facility] [place] [facility] [address] [id number] [place] [address]- 2857 Dec, [facility] [place] [facility] [address] [id number] [place] [address]- 8697 Dec, [facility] [place] [facility] [address] [id number] [place] [address]- 4643 Nov, [facility] [place] [facility] [address] [id number] [place] [address]- 5524 Nov, [facility] [place] [facility] [address] [id number] [place] [address]- 9463 Nov, [facility] [place] [facility] [address] [id number] [place] [address]- 1510 Nov, [facility] [place] [facility] [address] [id number] [place] [address]- 0907 Nov, [facility] [place] [facility] [address] [id number] [place] [address]- 1569 Oct, [facility] [place] [facility] [address] [id number] [place] [address] Oct, [facility] [place] [facility] [address] [id number] [place] [address]- 5809 Oct, [facility] [place] [facility] [address] [id number] [place] [address]- 2234 Oct, [facility] [place] [facility] [address] [id number] [place] [address]- 4924 Oct, [facility] [place] [facility] [address] [id number] [place] [address]- 2391 Oct, [facility] [place] [facility] [address] [id number] [place] [address]- 8540 Sep, [facility] [place] [facility] [address] [id number] [place] [address]- 6929 Sep, [facility] [place] [facility] [address] [id number] [place] [address]- 6217 Sep, [facility] [place] [facility] [address] [id number] [place] [address]- 1658 Sep, [facility] [place] [facility] [address] [id number] [place] [address]- 6846 August, [facility] [place] [facility] [address] [id number] [place] [address]- 8167 August, [facility] [place] [facility] [address] [id number] [place] [address]- 0131 Jul, [facility] [place] [facility] [address] [id number] [place] [address]- 4123 Jul, [facility] [place] [facility] [address] [id number] [place] [address]- 5415 Jul, [facility] [place] [facility] [address] [id number] [place] [address]- 8293 Jul, [facility] [place] [facility] [address] [id number] [place] [address]- 0651 Jul, [facility] [place] [facility] [address] [id number] [place] [address]- 9841 Jun, [facility] [place] [facility] [address] [id number] [place] [address]- 3828 Jun, [facility] [place] [facility] [address] [id number] [place] [address]- 5923 May, [facility] [place] [facility] [address] [id number] [place] [address]- 1463 May, [facility] [place] [facility] [address] [id number] [place] [address]- 2820 May, [facility] [place] [facility] [address] [id number] [place] [address]- 7412 May, [facility] [place] [facility] [address] [id number] [place] [address]- 0760 Apr, [facility] [place] [facility] [address] [id number] [place] [address]- 8847 Apr, [facility] [place] [facility] [address] [id number] [place] [address]- 9672 Apr, [facility] [place] [facility] [address] [id number] [place] [address]- 9031 Apr, [facility] [place] [facility] [address] [id number] [place] [address]- 0824 Apr, [facility] [place] [facility] [address] [id number] [place] [address]- 3006 Apr, [facility] [place] [facility] [address] [id number] [place] [address]- 9716 Mar, [facility] [place] [facility] [address] [id number] [place] [address]- 1826 05 Mar, 2013 [facility] [address] [id number] [place] [address]- 8640 Mar, [facility] [place] [facility] [address] [id number] [place] 1301 Mar, [facility] [place] [facility] [address] [id number] [place] [address]- 5112 14 Jan, 2013 [facility] [place] [facility] [address] [id number] [place] [address]- 7927 14 Jan, 2013 [facility] [place] [facility] [address] [id number] [place] [address]- 0878 Jan, [facility] [place] [facility] [address] [id number] [place] [address]- 2697 Jan, [facility] [place] [facility] [address] [id number] [place] [address]- 1683 Dec, [facility] [place] [facility] [address] [id number] [place] [address]- 1762 Dec, [facility] [place] [facility] [address] [id number] [place] [address]- 0264 Nov, [facility] [place] [facility] [address] [id number] [place] [address]- 2134 Nov, [facility] [place] [facility] [address] [id number] [place] [address]- 8991 Nov, [facility] [place] [facility] [address] [id number] [place] [address]- 5756 Nov, [facility] [place] [facility] [address] [id number] [place] [address]- 0076 Nov, [facility] [place] [facility] [address] [id number] [place] [address]- 5542 Nov, [facility] [place] [facility] [address] [id number] [place] [address]- 9243 Nov, [facility] [place] [facility] [address] [id number] [place] [address] 2542 Nov, [facility] [place] [facility] [address] [id number] [place] [address]- 2994 Oct, [facility] [place] [facility] [address] [id number] [place] [address]- 2546 Oct, [facility] [place] [facility] [address] [id number] [place] [address]- 0607 Sep, [facility] [place] [facility] [address] [id number] [place] [address]- 5019 Sep, [facility] [place] [facility] [address] [id number] [place] [address]- 1177 August, [facility] [place] [facility] [address] [id number] [place] [address]- 9245 August, [facility] [place] [facility] [address] [id number] [place] [address]- 7237 Jun, [facility] [place] [facility] [address] [id number] [place] [address]- 2896 Jun, [facility] [place] [facility] [address] [id number] [place] [address]- 4315 Jun, [facility] [place] [facility] [address] [id number] [place] [address]- 9182 Jun, [facility] [place] [facility] [address] [id number] [place] [address]- 0203 May, [facility] [place] [facility] [address] [id number] [place] [address]- 1066 May, [facility] [place] [facility] [address] [id number] [place] [address]- 5486 Apr, [facility] [place] [facility] [address] [id number] [place] [address]- 2542 Apr, [facility] [place] [facility] [address] [id number] [place] [address]- 7470 Apr, [facility] [place] [facility] [address] [id number] [place] [address]- 5680 Mar, [facility] [place] [facility] [address] [id number] [place] [address]576 Mar, [facility] [place] [facility] [address] [id number] [place] [address]- 9487 Mar, [facility] [place] [facility] [address] [id number] [place] [address]- 5116 Mar, [facility] [place] [facility] [address] [id number] [place] [address]- 7452 Mar, [facility] [place] [facility] [address] [id number] [place] [address]- 0605 Mar, [facility] [place] [facility] [address] [id number] [place] [address]- 3086 Feb, [facility] [place] [facility] [address] [id number] [place] [address]- 1546 Feb, [facility] [place] [facility] [address] [id number] [place] [address]- 1979 Feb, [facility] [place] [facility] [address] [id number] [place] [address]- 6137 Feb, [facility] [place] [facility] [address] [id number] [place] [address]- 4356 Feb, [facility] [place] [facility] [address] [id number] [place] [address]- 0885 Feb, [facility] [place] [facility] [address] [id number] [place] [address]- 8598 Feb, [facility] [place] [facility] [address] [id number] [place] [address]- 6080 Feb, [facility] [place] [facility] [address] [id number] [place] [address]- 2717 Feb, [facility] [place] [facility] [address] [id number] [place] [address]- 2546 Feb, [facility] [address] [id number] [place] [address]- 1026 Feb, [facility] [place] [facility] [address] [id number] [place] [address]- 2546 Feb, [facility] [address] [id number] [place] [address]- 2956 Jan, [facility] [place] [facility] [address] [id number] [place] [address]- 9978 Jan, [facility] [address] [id number] [place] [address]- 5980 Sep, [facility] [address] [id number] [place] [address]- 4866 August, [facility] [address] [id number] [place] [address]- 1216 August, [facility] [address] [id number] [place] [address]- 4925 August, [facility] [address] [id number] [place] [address]- 1116 August, [facility] [address] [id number] [place] [address]- 0056 August, [facility] [address] [id number] [place] [address]- 4566 August, [facility] [address] [id number] [place] [address]- 2686 August, [facility] [place] [facility] [address] [id number] [place] [address]- 6556 August, [facility] [address] [id number] [place] [address]- 2546 August, [facility] [address] [id number] [place] [address]- 8726 August, [facility] [id number] [address] Jul, [facility] [id number] [place] [address] 80097- 2546 May, [facility] [id number] [address] 2546 Apr, [facility] [address] [place] [id number] [place] [address] 55147- 2546 Apr, [facility] [id number] [place] [address] 69991- 4846 Mar, [facility] [address] [place] [id number] [place] [address] 14415- 5476 Feb, [facility] [address] [place] [id number] [place] [address] 69740- 2546 Feb, [facility] [id number] [place] [address] 13564- 7676 Jan, [facility] [id number] [place] [address] 73459- 2718 May, [facility] [id number] [address] 2966 Feb, [facility] [address] [address] 0436 Mar, [facility] [id number] [address] 2546 Mar, [facility] [address] [address]- 9741 Jul, [facility] [id number] [place] [address] 46386- 5966 Jun, IMMUNIZATIONS No Known Immunizations SOCIAL HISTORY Never Assessed REASON FOR VISIT Thyroid Pt in for f/u on thyroid also c/o allergy issues, including eye redness and drainage which started yesterday. She has congestion and cough for 8 days. PLAN OF CARE Activity Details Follow Up 3 Months Reason:weight loss Pending Test HIDA Scan Pending Test TSH w/ FREE T4 VITAL SIGNS Height 65 in 2018-01-18 Weight 111.7 lbs 2018-01-18 Temperature 98.4 degrees Fahrenheit 2018-01-18 Heart Rate 72 bpm 2018-01-18 Respiratory Rate 18 2018-01-18 BMI 18.59 kg/m2 2018-01-18 Blood pressure systolic 122 mmHg 2018-01-18 Blood pressure diastolic 78 mmHg 2018-01-18 MEDICATIONS Medication Instructions Dosage Frequency Start Date End Date Duration Status Levothyroxine Sodium 150 MCG Orally Once a day 1 tablet on an empty stomach in the morning 24h 30 Mar, 2016 90 days Active Loratadine 10 mg Orally Once a day 1 tablet 24h Jan, May, 30 day(s) Active Pantoprazole Sodium 40 mg Orally Once a day 1 tablet 24h Jan, 30 day(s) Active Flexeril Active RESULTS Name Result Date Reference Range Ultrasound : Gallbladder 2018-01-20 PROCEDURES Procedure Date Ordered Result Body Site ASSAY THYROID STIM HORMONE Jan 18, 2018 ASSAY OF FREE THYROXINE Jan 18, 2018 INSTRUCTIONS MEDICATIONS ADMINISTERED No Known Medications MEDICAL [...]
--- OUTSIDE RECORDS SUMMARY | 2018-05-31 07:32 | XMS REPORT ---
Author Author ENRIQUETA CHRISTY Organization [facility] Address [address] [place] [address] Care Team Providers Care It Disaster Recovery Manager Name Role Phone ENRIQUETA CHRISTY Unavailable PROBLEMS Type Condition ICD9-CM Code VPT13-JW Code Onset Dates Condition Status SNOMED Code Problem Hypothyroid E03.9 Active 89924257 Problem Financial problems Z59.8 Active 082283735 Problem Panic attack F41.0 Active 362179676 Problem Seasonal allergic rhinitis due to pollen J30.1 Active 28454112 Problem Postablative hypothyroidism E89.0 Active 754424242 Problem Weight loss R63.4 Active 551480273 Problem Neuropathy G62.9 Active 512655638 Problem Other chronic pain G89.29 Active 59064331 ALLERGIES No Information ENCOUNTERS Encounter Location Date Diagnosis [place] [id number] [place] [address] 85875- 3971 Jan, [place] [id number] [place] [address] 44580- 9601 Jan, [place] [id number] [place] [address] 07681- 2336 Jan, Seasonal allergic rhinitis due to pollen J30.1 ; Other acute gastritis without hemorrhage K29.00 ; Polyp of colon, unspecified part of colon, unspecified type K63.5 ; Panic attack F41.0 ; Right upper quadrant abdominal pain R10.11 ; Postablative hypothyroidism E89.0 and Allergic conjunctivitis of right eye H10.11 [place] [id number] [place] [address] 73045- 6849 Jun, Postablative hypothyroidism E89.0 [place] [id number] [place] [address] 54610- 5863 May, Postablative hypothyroidism E89.0 ; Screening, lipid Z13.220 ; Neuropathy G62.9 ; Radiculopathy affecting upper extremity M54.10 ; Low back pain M54.5 and Other chronic pain G89.29 [facility] [id number] [place] [address] 20722- 8116 Oct, Hypothyroid E03.9 ; Ganglion cyst of right foot M67.471 and Encounter for screening mammogram for breast cancer Z12.31 [facility] [id number] [place] [address] 73767- 4639 Sep, Postablative hypothyroidism E89.0 [facility] [id number] [place] [address] 49624- 7396 Sep, Hypothyroid E03.9 [facility] [id number] [place] [address] 12604- 8218 Jun, Postablative hypothyroidism E89.0 [facility] [id number] [place] [address] 49758- 9696 Jun, [facility] [id number] [place] [address] 76511- 3908 Jun, Hypothyroid E03.9 [facility] [id number] [place] [address] 64091- 5526 Jun, Postablative hypothyroidism E89.0 [facility] [id number] [place] [address] 91073- 7873 Mar, [facility] [id number] [place] [address] 17998- 6285 Mar, [facility] [id number] [place] [address] 56117- 6503 Mar, Hypothyroid E03.9 [facility] [id number] [place] [address] 90645- 5972 Dec, [facility] [id number] [place] [address] 73693 -9775 Nov, Food poisoning, accidental or unintentional, initial encounter T62.91XA [place] [address] 17420- 5439 Nov, [place] [address] 85873- 1681 Oct, Hypothyroid E03.9 ; Weight loss R63.4 and Financial problems Z59.[address] 76203- 9099 Jul, Gastroenteritis K52.[address] 80556- 4682 Apr, Hypothyroid E03.9 [place] [address] 35910- 7055 Apr, Postablative hypothyroidism E89.0 and Upper respiratory infection J06.9 [place] [address] 16701- 2011 Jan, [address] 13057- 7596 Jan, [place] [address] 28576- 0516 Dec, [place] [address] 40523- 5147 Dec, Cannabis abuse 305.20 and Major depression, recurrent 296.30 [place] [address] 93897- 4404 Dec, Fatigue 780.79 ; Weakness 780.79 ; Hoarseness of voice 784.42 ; Shortness of breath 786.05 ; Hypothyroid 244.9 ; Cervicalgia 723.1 ; Depression 311 ; Insomnia 780.52 and Hard of hearing 389.9 [place] [id number] [place] [address] 49506- 2304 Jul, [address] [place] [address]- 3483 Jul, [facility] [place] [facility] [address] [id number] [place] [address]- 9016 Mar, [facility] [place] [facility] [address] [id number] [place] [address]- 4242 Mar, [facility] [place] [facility] [address] [id number] [place] [address]- 2936 Jan, [facility] [place] [facility] [address] [id number] [place] [address]- 5139 Jan, [facility] [place] [facility] [address] [id number] [place] [address]- 8376 Jan, [facility] [place] [facility] [address] [id number] [place] [address]- 7406 Jan, [facility] [place] [facility] [address] [id number] [place] [address]- 2400 Dec, [facility] [place] [facility] [address] [id number] [place] [address]- 4059 Dec, [facility] [place] [facility] [address] [id number] [place] [address]- 5374 Dec, [facility] [place] [facility] [address] [id number] [place] [address]- 8875 Dec, [facility] [place] [facility] [address] [id number] [place] [address]- 7255 Nov, [facility] [place] [facility] [address] [id number] [place] [address]- 4737 Nov, [facility] [place] [facility] [address] [id number] [place] [address]- 3888 Nov, [facility] [place] [facility] [address] [id number] [place] [address]- 5050 Nov, [facility] [place] [facility] [address] [id number] [place] [address]- 9862 Nov, [facility] [place] [facility] [address] [id number] [place] [address]- 0027 Oct, [facility] [place] [facility] [address] [id number] [place] [address]- 4445 Oct, [facility] [place] [facility] [address] [id number] [place] [address]- 4295 Oct, [facility] [place] [facility] [address] [id number] [place] [address]- 7625 Oct, [facility] [place] [facility] [address] [id number] [place] [address]- 7713 Oct, [facility] [place] [facility] [address] [id number] [place] [address]- 6991 Oct, [facility] [place] [facility] [address] [id number] [place] [address]- 9467 Sep, [facility] [place] [facility] [address] [id number] [place] [address]- 5609 Sep, [facility] [place] [facility] [address] [id number] [place] [address]- 4892 Sep, [facility] [place] [facility] [address] [id number] [place] [address]- 0971 Sep, [facility] [place] [facility] [address] [id number] [place] [address]- 6082 August, [facility] [place] [facility] [address] [id number] [place] [address]- 6833 August, [facility] [place] [facility] [address] [id number] [place] [address]- 8009 Jul, [facility] [place] [facility] [address] [id number] [place] [address]- 7054 Jul, [facility] [place] [facility] [address] [id number] [place] [address]- 2957 Jul, [facility] [place] [facility] [address] [id number] [place] [address]- 3163 Jul, [facility] [place] [facility] [address] [id number] [place] [address]- 4467 Jul, [facility] [place] [facility] [address] [id number] [place] [address]- 3845 Jun, [facility] [place] [facility] [address] [id number] [place] [address]- 0437 Jun, [facility] [place] [facility] [address] [id number] [place] [address]- 7124 May, [facility] [place] [facility] [address] [id number] [place] [address]- 6290 May, [facility] [place] [facility] [address] [id number] [place] [address]- 7828 May, [facility] [place] [facility] [address] [id number] [place] [address]- 0156 May, [facility] [place] [facility] [address] [id number] [place] [address]- 6307 Apr, [facility] [place] [facility] [address] [id number] [place] [address]- 3099 Apr, [facility] [place] [facility] [address] [facility] [id number] [place] [address]- 7094 Apr, [facility] [place] [facility] [address] [id number] [place] [address]- 0538 Apr, [facility] [place] [facility] [address] [id number] [place] [address]- 9244 Apr, [facility] [place] [facility] [address] [id number] [place] [address]- 6880 Apr, [facility] [place] [facility] [address] [facility] [id number] [place] 0236 Mar, [facility] [place] [facility] [address] [id number] [place] 8102 Mar, [facility] [place] [facility] [address] [id number] [place] [address]- 4698 Mar, [facility] [place] [facility] [address] [id number] [place] [address]- 4159 Mar, [facility] [place] [facility] [address] [id number] [place] [address]- 7385 Jan, [facility] [place] [facility] [address] [id number] [place] [address]- 6417 Jan, [facility] [place] [facility] [address] [id number] [place] [address]- 0446 Jan, [facility] [place] [facility] [address] [id number] [place] [address]- 0388 Jan, [facility] [place] [facility] [address] [id number] [place] [address]- 7780 Dec, [facility] [place] [facility] [address] [id number] [place] [address]- 8100 Dec, [facility] [place] [facility] [address] [id number] [place] [address]- 4463 Nov, [facility] [place] [facility] [address] [id number] [place] [address]- 5670 Nov, [facility] [place] [facility] [address] [id number] [place] [address]- 3254 Nov, [facility] [place] [facility] [address] [id number] [place] [address]- 7947 Nov, [facility] [place] [facility] [address] [id number] [place] [address]- 8433 Nov, [facility] [place] [facility] [address] [id number] [place] [address]- 2675 Nov, [facility] [place] [facility] [address] [id number] [place] [address]- 0757 Nov, [facility] [place] [facility] [address] [id number] [place] [address]- 2546 Nov, [facility] [address] [id number] [place] [address]- 8959 Oct, [facility] [place] [facility] [address] [id number] [place] [address]- 0096 Oct, [facility] [place] [facility] [address] [id number] [place] [address]- 0553 Sep, [facility] [place] [facility] [address] [id number] [place] [address]- 2372 Sep, [facility] [place] [facility] [address] [id number] [place] [address]- 0663 August, [facility] [place] [facility] [address] [id number] [place] [address]- 9876 August, [facility] [place] [facility] [address] [id number] [place] [address]- 3860 Jun, [facility] [place] [facility] [address] [id number] [place] [address]- 9273 Jun, [facility] [place] [facility] [address] [id number] [place] [address]- 2049 Jun, [facility] [place] [facility] [address] [id number] [place] [address]- 4377 Jun, [facility] [place] [facility] [address] [id number] [place] [address]- 0133 May, [facility] [place] [facility] [address] [id number] [place] [address]- 8820 May, [facility] [place] [facility] [address] [id number] [place] [address]- 0634 Apr, [facility] [place] [facility] [address] [id number] [place] [address]- 4284 Apr, [facility] [place] [facility] [address] [id number] [place] [address] 2545 Apr, [facility] [place] [facility] [address] [id number] [place] [address]- 2188 17 Mar, 2012 [facility] [place] [facility] [address] [id number] [place] 4553 Mar, [facility] [place] [facility] [address] [id number] [place] [address]- 0836 Mar, [facility] [place] [facility] [address] [id number] [place] [address]- 1846 Mar, [facility] [place] [facility] [address] [id number] [place] [address]- 9022 Mar, [facility] [place] [facility] [address] [id number] [place] [address]- 4546 Mar, [facility] [place] [facility] [address] [id number] [place] [address]- 9115 Feb, [facility] [place] [facility] [address] [id number] [place] [address]- 0259 Feb, [facility] [place] [facility] [address] [id number] [place] [address]- 3617 Feb, [facility] [place] [facility] [address] [id number] [place] [address]- 0877 Feb, [facility] [place] [facility] [address] [id number] [place] [address]- 1023 Feb, [facility] [place] [facility] [address] [id number] [place] [address]- 1181 Feb, [facility] [place] [facility] [address] [id number] [place] [address]- 7626 Feb, [facility] [place] [facility] [address] [id number] [place] [address]- 2934 Feb, [facility] [place] [facility] [address] [id number] [place] [address]- 0039 Feb, [facility] [place] [facility] [address] [id number] [place] [address]- 5351 Feb, [facility] [place] [facility] [address] [id number] [place] [address]- 8601 Feb, [facility] [place] [facility] [address] [id number] [place] [address]- 3991 Feb, [facility] [place] [facility] [address] [id number] [place] 1812 Jan, [facility] [place] [facility] [address] [id number] [place] [address]- 7327 Jan, [facility] [place] [facility] [address] [id number] [place] [address]- 9229 Sep, [facility] [place] [facility] [address] [id number] [place] [address]- 1950 August, [facility] [place] [facility] [address] [id number] [place] [address]- 2124 August, [facility] [place] [facility] [address] [id number] [place] [address]- 8824 August, [facility] [place] [facility] [address] [id number] [place] [address]- 0311 August, [facility] [place] [facility] [address] [id number] [place] [address]- 5327 August, [facility] [place] [facility] [address] [id number] [place] [address]- 4959 August, [facility] [place] [facility] [address] [id number] [address]- 9814 August, [facility] [place] [facility] [address] [id number] [place] [address]- 1654 August, [facility] [place] [facility] [address] [id number] [place] [address]- 3874 August, [facility] [place] [facility] [address] [id number] [place] [address]- 9086 August, [facility] [place] [facility] [address] [address]- 6021 Jul, [facility] [address] [address]- 5108 May, [facility] [address] [address]- 9296 Apr, [facility] [address] [address]- 2336 Apr, [facility] [address] [address]- 8088 Mar, [facility] [id number] [place] [address] 69205- 8158 Feb, [facility] [id number] [place] [address] 16548- 8056 Feb, [facility] [id number] [place] [address] 02086- 4599 Jan, [facility] [address] [address]- 2545 May, [facility] [id number] [place] [address] 58515- 3591 Feb, [facility] [address] [address]- 7812 Mar, [facility] [address] [address]- 6965 Mar, [facility] [address] [address]- 3895 Jul, [facility] [address] [address]- 6056 Jun, IMMUNIZATIONS No Known Immunizations SOCIAL HISTORY Never Assessed REASON FOR VISIT Medication refill request PLAN OF CARE VITAL SIGNS MEDICATIONS Unknown Medications RESULTS No Results PROCEDURES No Known [...]
--- OUTSIDE RECORDS SUMMARY | 2018-05-31 07:34 | XMS REPORT | Continuity of Care Document ---
Author Author [facility] Ctr of [facility] Ctr of [facility] Address Unknown Phone Unavailable Allergies Active Description Code Type Severity Reaction Onset Reported/Identified Relationship to Patient Clinical Status Yes traZODONE Drug Allergy 04/03/2009 Yes traZODONE Drug Allergy N/A N/A 04/03/2009 Yes No Known Drug Allergies [id number] Drug Allergy Mild N/A 06/23/2009 Yes trazodone [id number] Drug Allergy Unknown N/A 01/21/2018 Medications There is no data. Problems Date Dx Coded Attending Type Code Diagnosis Diagnosed By 11/25/2007 ENRIQUETA CHRISTY APRN S V25.49 SURVEILLANCE [...] S V25.49 SURVEILLANCE OF OTHER CONTRACEPTIVE METHOD 12/01/2007 EVIN CHRISTY APRNA S 244.9 HYPOTHYROIDISM 12/01/2007 ENRIQUETA CHRISTY APRN S 784.49 Hoarseness 12/01/2007 244.9 HYPOTHYROIDISM 12/01/2007 784.49 Hoarseness 12/01/2007 EVIN CHRISTY APRNA S 244.9 HYPOTHYROIDISM 12/01/2007 EVIN CHRISTY APRNA S 784.49 Hoarseness 12/01/2007 ANABELL DOOLEY MD 244.9 HYPOTHYROIDISM 12/01/2007 ANABELL DOOLEY MD 784.49 Hoarseness 12/01/2007 244.9 HYPOTHYROIDISM 12/01/2007 784.49 Hoarseness 12/01/2007 244.9 HYPOTHYROIDISM 12/01/2007 784.49 Hoarseness 12/01/2007 WESTLEY HAMMOND, ENRIQUETA S 244.9 HYPOTHYROIDISM 12/01/2007 WESTLEY HAMMOND, ENRIQUETA S 784.49 Hoarseness 12/01/2007 WESTLEY HAMMOND, NERIQUETA S 244.9 HYPOTHYROIDISM 12/01/2007 WESTLEY HAMMOND, ENRIQUETA S 784.49 Hoarseness 12/01/2007 WESTLEY HAMMOND, ENRIQUETA S 244.9 HYPOTHYROIDISM 12/01/2007 WESTLEY HAMMOND, ENRIQUETA S 784.49 Hoarseness 04/03/2009 BELGICA CHRISTY APRNNDA S 300.00 anxiety 04/03/2009 300.00 anxiety 04/03/2009 WESTLEY HAMMOND ENRIQUETA S 300.00 anxiety 04/03/2009 ANABELL DOOLEY MD 300.00 anxiety 04/03/2009 300.00 anxiety 04/03/2009 300.00 anxiety 04/03/2009 BELGICA CHRISTY APRNNDA S 300.00 anxiety 04/03/2009 BELGICA CHRISTY APRNNDA S 300.00 anxiety 04/03/2009 WESTLEY HAMMOND, ENRIQUETA S 300.00 anxiety 05/08/2010 BELGICA CHRISTY APRNNDA S 709.9 Skin Lesions 05/08/2010 709.9 Skin Lesions 05/08/2010 BELGICA CHRISYT APRNNDA S 709.9 Skin Lesions 05/08/2010 ANABELL DOOLEY MD 709.9 Skin Lesions 05/08/2010 709.9 Skin Lesions 05/08/2010 709.9 Skin Lesions 05/08/2010 BELGICA CHRISTY APRNNDA S 709.9 Skin Lesions 05/08/2010 WESTLEY HAMMOND ENRIQUETA S 709.9 Skin Lesions 05/08/2010 BELGICA CHRISTY [...] S 216.9 Mole/nevus - Site Unspecified 05/31/2010 WESTLEY SECURITY ALARM INSTALLER, ENRIQUETA S 216.9 Mole/nevus - Site Unspecified 05/31/2010 WESTLEY SECURITY ALARM INSTALLER, ENRIQUETA S 216.9 Mole/nevus - Site Unspecified 01/09/2011 BELGICA CHRISTY APRNNDA S 296.90 MOOD DISORDER 01/09/2011 BELGICA CHRISTY APRNNDA S 300.02 AN GEN ANXIETY 01/09/2011 BELGICA CHRISTY APRNNDA S 780.79 MALAISE AND FATIGUE 01/09/2011 BELGICA CHRISTY APRNNDA S V68.1 ISSUE OF REPEAT PRESCRIPTIONS 01/09/2011 296.90 MOOD DISORDER 01/09/2011 300.02 AN GEN ANXIETY 01/09/2011 780.79 MALAISE AND FATIGUE 01/09/2011 V68.1 ISSUE OF REPEAT PRESCRIPTIONS 01/09/2011 BELGICA CHRISTY APRNNDA S 296.90 MOOD DISORDER 01/09/2011 EVIN CHRISTY APRNA S 300.02 AN GEN ANXIETY 01/09/2011 BELGICA CHRISTY APRNNDA S 780.79 MALAISE AND FATIGUE 01/09/2011 BELGICA [...] APRNNDA S 780.79 MALAISE AND FATIGUE 01/09/2011 BELGICA CHRISTY APRNNDA S V68.1 ISSUE OF REPEAT PRESCRIPTIONS 01/09/2011 BELGICA CHRISTY APRNNDA S 296.90 MOOD DISORDER 01/09/2011 BELGICA CHRISTY APRNNDA S 300.02 AN GEN ANXIETY 01/09/2011 BELGICA CHRISTY APRNNDA S 780.79 MALAISE AND FATIGUE 01/09/2011 BELGICA CHRISTY APRNNDA S V68.1 ISSUE OF REPEAT PRESCRIPTIONS 01/09/2011 BELGICA CHRISTY APRNNDA S 296.90 MOOD DISORDER 01/09/2011 BELGICA CHRISTY APRNNDA S 300.02 AN GEN ANXIETY 01/09/2011 BELGICA CHRISTY APRNNDA S 780.79 MALAISE AND FATIGUE 01/09/2011 WESTLEY HAMMOND, ENRIQUETA S V68.1 ISSUE OF REPEAT PRESCRIPTIONS 02/05/2011 [...] 300.01 AN PANIC DIS W/O AGORA 02/05/2011 EVIN CHRISTY APRNA S 296.32 MO DEPRESSIVE RECURRENT MODERATE 02/05/2011 BELGICA CHRISTY APRNNDA S 300.01 AN PANIC DIS W/O AGORA 02/05/2011 BELGICA CHRISTY APRNNDA S 296.32 MO DEPRESSIVE RECURRENT MODERATE 02/05/2011 BELGICA CHRISTY APRNNDA S 300.01 AN PANIC DIS W/O AGORA 02/05/2011 BELGICA CHRISTY APRNNDA S 296.32 MO DEPRESSIVE RECURRENT MODERATE 02/05/2011 BELGICA CHRISTY APRNNDA S 300.01 AN PANIC DIS W/O AGORA 08/27/2011 EVIN CHRISTY APRNA S 304.30 CANNABIS DEPENDENCE UNSPECIFIED USE 08/27/2011 EVIN CHRISTY APRNA S 305.1 NONDEPENDENT TOBACCO USE DISORDER 08/27/2011 EVIN CHRISTY APRNA S 723.1 CERVICALGIA 08/27/2011 BELGICA CHRISTY APRNNDA S 783.21 WEIGHT LOSS 08/27/2011 304.30 CANNABIS DEPENDENCE UNSPECIFIED USE 08/27/2011 305.1 NONDEPENDENT TOBACCO USE DISORDER 08/27/2011 723.1 CERVICALGIA 08/27/2011 783.21 WEIGHT LOSS 08/27/2011 EVIN CHRISTY APRNA S 304.30 CANNABIS DEPENDENCE UNSPECIFIED USE 08/27/2011 EVIN CHRISTY APRNA S 305.1 NONDEPENDENT TOBACCO USE DISORDER 08/27/2011 EVIN CHRISTY APRNA S 723.1 CERVICALGIA 08/27/2011 BELGICA CHRISTY APRNNDA S 783.21 WEIGHT LOSS 08/27/2011 ANABELL DOOLEY [...] V76.2 CERVICAL CANCER SCREENING (PAP SMEAR) 03/03/2012 ENRIQUETA CHRISTY APRN S V16.49 FAMILY HISTORY OF MALIGNANT NEOPLASM OF OTHER 03/03/2012 V16.49 FAMILY HISTORY OF MALIGNANT NEOPLASM OF OTHER 03/03/2012 EVIN CHRISTY APRNA S V16.49 FAMILY HISTORY OF MALIGNANT NEOPLASM OF OTHER 03/03/2012 ANABELL DOOLEY MD V16.49 FAMILY HISTORY OF MALIGNANT NEOPLASM OF OTHER 03/03/2012 V16.49 FAMILY HISTORY OF MALIGNANT NEOPLASM OF OTHER 03/03/2012 V16.49 FAMILY HISTORY OF MALIGNANT NEOPLASM OF OTHER 03/03/2012 ENRIQUETA CHRISTY APRN S V16.49 FAMILY HISTORY OF MALIGNANT NEOPLASM OF OTHER 03/03/2012 EVIN CHRISTY APRNA S V16.49 FAMILY HISTORY OF MALIGNANT NEOPLASM OF OTHER 03/03/2012 EVIN CHRISTY APRNA S V16.49 FAMILY HISTORY OF MALIGNANT NEOPLASM OF OTHER 03/29/2012 787.91 DIARRHEA 03/29/2012 BELGICA CHRISTY APRNNDA S 787.91 DIARRHEA 03/29/2012 ANABELL DOOLEY MD 787.91 DIARRHEA 03/29/2012 787.91 DIARRHEA 03/29/2012 787.91 DIARRHEA 03/29/2012 BELGICA CHRISTY APRNNDA S 787.91 DIARRHEA 03/29/2012 BELGICA CHRISTY APRNNDA S 787.91 DIARRHEA 03/29/2012 BELGICA CHRISTY APRNNDA S 787.91 DIARRHEA 04/21/2012 BELGICA CHRISTY APRNNDA S 788.1 DYSURIA 04/21/2012 ANABELL DOOLEY MD 788.1 DYSURIA 04/21/2012 788.1 DYSURIA 04/21/2012 788.1 DYSURIA 04/21/2012 EVIN CHRISTY APRNA S 788.1 DYSURIA 04/21/2012 BELGICA CHRISTY APRNNDA S 788.1 DYSURIA 04/21/2012 BELGICA CHRISTY APRNNDA S 788.1 DYSURIA 08/17/2012 V06.1 TDAP DX 08/17/2012 V06.1 TDAP DX 08/17/2012 WESTLEY SECURITY ALARM INSTALLER, ENRIQUETA S V06.1 TDAP DX 08/17/2012 WESTLEY SECURITY ALARM INSTALLER, ENRIQUETA S V06.1 TDAP DX 08/17/2012 WESTLEY SECURITY ALARM INSTALLER, ENRIQUETA S V06.1 TDAP DX 11/11/2012 356.9 NEUROPATHY 11/11/2012 781.1 DISTURBANCES OF SENSATION OF SMELL AND TASTE 11/11/2012 WESTLEY SECURITY ALARM INSTALLER, ENRIQUETA S 356.9 NEUROPATHY 11/11/2012 WESTLEY SECURITY ALARM INSTALLER, ENRIQUETA S 781.1 DISTURBANCES OF SENSATION OF SMELL AND TASTE 11/11/2012 WESTLEY SECURITY ALARM INSTALLER, ENRIQUETA S 356.9 NEUROPATHY 11/11/2012 WESTLEY SECURITY ALARM INSTALLER, ENRIQUETA S 781.1 DISTURBANCES OF SENSATION OF SMELL AND TASTE 11/11/2012 WESTLEY SECURITY ALARM INSTALLER, ENRIQUETA S 356.9 NEUROPATHY 11/11/2012 WESTLEY SECURITY ALARM INSTALLER, ENRIQUETA S 781.1 DISTURBANCES OF SENSATION OF SMELL AND TASTE 05/10/2013 WESTLEY SECURITY ALARM INSTALLER, ENRIQUETA S 212.3 BENIGN NEOPLASM OF BRONCHUS AND LUNG 01/19/2018 ENRIQUETA CHRISTY LINING LAYER Ot 492.8 EMPHYSEMA NEC 01/19/2018 ENRIQUETA CHRISTY LINING LAYER Ot 793.11 SOLITARY PULMONARY NODULE 01/21/2018 ENRIQUETA CHRISTY LINING LAYER Ot K80.20 CALCULUS OF GALLBLADDER W/O CHOLECYSTITI 01/21/2018 ENRIQUETA CHRISTY LINING LAYER Ot K82.8 OTHER SPECIFIED DISEASES OF GALLBLADDER 01/21/2018 ENRIQUETA CHRISTY LINING LAYER Ot K80.20 CALCULUS OF GALLBLADDER W/O CHOLECYSTITI 01/21/2018 ENRIQUETA CHRISTY LINING LAYER Ot K82.8 OTHER SPECIFIED DISEASES OF GALLBLADDER 01/21/2018 ARELI BLACKWELL, WILMER Platt Ot Z01.818 ENCOUNTER FOR OTHER PREPROCEDURAL EXAMIN 01/21/2018 ARELI BLACKWELL, WILMER Platt Ot F17.210 NICOTINE DEPENDENCE, CIGARETTES, UNCOMPL 01/21/2018 ARELI BLACKWELL, WILMER Platt Ot G56.93 UNSPECIFIED MONONEUROPATHY OF BILATERAL 01/21/2018 WILMER SINGLETON MD Ot K80.10 CALCULUS OF GALLBLADDER W CHRONIC CHOLEC 01/26/2018 ARELI BLACKWELL, WILMER Platt Ot F17.210 NICOTINE DEPENDENCE, CIGARETTES, UNCOMPL 01/26/2018 ARELI BLACKWELL, WILMER Platt Ot G56.93 UNSPECIFIED MONONEUROPATHY OF BILATERAL 01/26/2018 ARELI BLACKWELL, WILMER Platt Ot K80.10 CALCULUS OF GALLBLADDER W CHRONIC CHOLEC 02/08/2018 ENRIQUETA CHRISTY Ot K80.20 CALCULUS OF GALLBLADDER W/O CHOLECYSTITI 02/08/2018 ENRIQUETA CHRISTY Ot K82.8 OTHER SPECIFIED DISEASES OF GALLBLADDER 05/27/2018 ARELI BLACKWELL, WILMER Platt Ot Z01.818 ENCOUNTER FOR OTHER PREPROCEDURAL EXAMIN Procedures Code Description [place] [address] ROUTINE VENIPUNCTURE 02/23/2012 24567 TSH 02/24/2012 14470 XRAY CHEST 2 VIEW 03/03/2012 S Wilmer Singleton 03/03/2012 23323 URINE DRUG SCREEN (IN-HOUSE ) 03/03/2012 51159 ROUTINE VENIPUNCTURE 03/03/2012 93422 CBC 03/03/2012 48787 CRP 03/04/2012 24769 T4 03/04/2012 91232 ROUTINE VENIPUNCTURE 04/21/2012 41902 UA W/ CULTURE IF INDICATED 04/21/2012 52853 ESR/SED RATE 04/21/2012 77770 TSH 04/22/2012 38475 T4 FREE 04/22/2012 20609 ROUTINE VENIPUNCTURE 06/01/2012 50510 URINE DRUG SCREEN (IN-HOUSE ) 06/01/2012 95382 CMP 06/01/2012 0189786 GFR CALC (RESULT ONLY) 06/01/2012 42200 T4 FREE 06/01/2012 90018 TSH 06/01/2012 97200 UA W/MICROSCOPY 06/01/[address] CHEST W/DYE 06/02/[address] ABDOMEN & PELVIS W/ & W/ O CONTRAST 06/02/2012 33275 ROUTINE VENIPUNCTURE 08/17/2012 28706 TSH 08/17/2012 80848 CELIAC DISEASE ANALYZER 08/19/[address] CHEST W/DYE 05/13/2013 Results Test Result Range TSH - 04/08/16 17:36 TSH 192.500 uIU/mL 0.450-4.500 TSH+Free T4 - 06/16/16 16:47 TSH 0.498 uIU/mL 0.450-4.500 T4,Free(Direct) 1.81 ng/dL 0.82-1.77 TSH+Free T4 - 10/03/16 09:04 TSH 1.680 uIU/mL 0.450-4.500 T4,Free(Direct) 1.34 ng/dL 0.82-1.77 CMP - 06/10/17 10:03 GLUCOSE 95 mg/dL 65-99 UREA NITROGEN (BUN) 9 mg/dL 7-25 CREATININE 0.77 mg/dL 0.50-1.10 eGFR NON-AFR. AZERBAIJANI 95 mL/min/1.73m2 > OR=60 eGFR 110 mL/min/1.73m2 [...] 16 U/L 10-30 ALT 17 U/L 6-29 TSH w/ FREE T4 - 01/18/18 16:27 TSH 0.04 mIU/L NRG T4, FREE 1.9 ng/dL 0.8-1.8 Methicillin resistant Staphylococcus aureus (MRSA) screening culture - 09:25 Methicillin resistant Staphylococcus aureus (MRSA) screening culture NEG NRG Complete blood count (CBC) with automated white blood cell (WBC) differential - 01/21/18 09:30 Blood leukocytes automated count (number/volume) 9.1 10*3/uL 4.3-11.0 Blood erythrocytes automated count (number/volume) 4.76 10*6/uL 4.35-5.85 Venous blood hemoglobin measurement (mass/volume) 15.3 g/dL 11.5-16.0 Blood hematocrit (volume fraction) 44 % 35-52 Automated erythrocyte mean corpuscular volume 92 [foz_us] 80-99 Automated erythrocyte mean corpuscular hemoglobin (mass per erythrocyte) 32 pg 25-34 Automated erythrocyte mean corpuscular hemoglobin concentration measurement ( mass/volume) 35 g/dL 32-36 Automated erythrocyte distribution width ratio 12.4 % 10.0-14.5 Automated blood platelet count (count/volume) 391 10*3/uL 130-400 Automated blood platelet mean volume measurement 9.1 [foz_us] 7.4-10.4 Automated blood neutrophils/100 leukocytes 63 % 42-75 Automated blood lymphocytes/100 leukocytes 27 % 12-44 Blood monocytes/100 leukocytes 9 % 0-12 Automated blood eosinophils/100 leukocytes 1 % 0-10 Automated blood basophils/100 leukocytes 0 % 0-10 Blood neutrophils automated count (number/volume) 5.7 10*3 1.8-7.8 Blood lymphocytes automated count (number/volume) 2.4 10*3 1.0-4.0 Blood monocytes automated count (number/volume) 0.8 10*3 0.0-1.0 Automated eosinophil count 0.1 10*3/uL 0.0-0.3 Automated blood basophil count (count/volume) 0.0 10*3/uL 0.0-0.1 Comprehensive metabolic panel - 01/21/18 09:30 Serum or plasma sodium measurement (moles/volume) 139 mmol/L 135-145 Serum or plasma potassium measurement (moles/volume) 3.9 mmol/L 3.6-5.0 Serum or plasma chloride measurement (moles/volume) 104 mmol/L 98-107 Carbon dioxide 26 mmol/L 21-32 Serum or plasma anion gap determination (moles/volume) 9 mmol/L 5-14 Serum or plasma urea nitrogen measurement (mass/volume) 8 mg/dL 7-18 Serum or plasma creatinine measurement (mass/volume) 0.71 mg/dL 0.60-1.30 Serum or plasma urea nitrogen/creatinine mass ratio 11 NRG Serum or plasma creatinine measurement with calculation of estimated glomerular filtration rate > NRG Serum or plasma glucose measurement (mass/volume) 88 mg/dL 70-105 Serum or plasma calcium measurement (mass/volume) 9.3 mg/dL 8.5-10.1 Serum or plasma total bilirubin measurement (mass/volume) 0.6 mg/dL 0.1-1.0 Serum or plasma alkaline phosphatase measurement (enzymatic activity/volume) 102 U/L 40-136 Serum or plasma aspartate aminotransferase measurement (enzymatic activity/ volume) 16 U/L 5-34 Serum or plasma alanine aminotransferase measurement (enzymatic activity/volume ) 41 U/L 0-55 Serum or plasma protein measurement (mass/volume) 6.8 g/dL 6.4-8.2 Serum or plasma albumin measurement (mass/volume) 4.1 g/dL 3.2-4.5 CALCIUM CORRECTED 9.2 mg/dL 8.5-10.1 Urine beta human chorionic gonadotropin (hCG) measurement - 01/21/18 09:40 Urine beta human chorionic gonadotropin (hCG) measurement NEGATIVE NEGATIVE Encounters ACCT No. Visit Date/Time Discharge Status Pt. Type Provider Facility Loc./Unit Complaint [id number] 05/10/2013 08:27:00 05/10/2013 23:59:59 CLS Outpatient ENRIQUETA CHRISTY APRN [id number] 01/24/2013 11:57:00 01/24/2013 23:59:59 CLS Outpatient ENRIQUETA CHRISTY APRN [id number] 12/15/2012 14:07:00 12/15/2012 23:59:59 CLS Outpatient ENRIQUETA CHRISTY APRN [id number] 06/01/2012 10:43:00 06/01/2012 23:59:59 CLS Outpatient ANABELL DOOLEY MD [id number] 04/21/2012 14:22:00 04/21/2012 23:59:59 CLS Outpatient ENRIQUETA CHRISTY APRN [id number] 03/29/2012 09:22:00 03/29/2012 23:59:59 CLS Outpatient [id number] 09/04/2011 07:59:00 09/04/2011 23:59:59 CLS Outpatient ENRIQUETA CHRISTY APRN [id number] 11/12/2012 08:39:00 Document Registration [id number] 08/17/2012 08:46:00 Document Registration [id number] 04/09/2016 08:06:00 Document Registration [id number] 06/17/2016 09:14:00 Document Registration [id number] 10/04/2016 08:07:00 Document Registration [id number] 05/27/2018 10:15:00 05/27/2018 10:23:00 DIS Outpatient ARELI BLACKWELL, WILMER Platt [facility] PREOP EGD [id number] 01/21/2018 08:49:00 01/21/2018 16:00:00 DIS Outpatient WILMER SINGLETON MD [facility] SDC GALLSTONES,WALL THICKENING [id number] 01/20/2018 15:54:00 01/20/2018 23:59:59 CLS Outpatient WILMER SINGLETON MD [facility] PREOP GALLSTONES [id number] 01/20/2018 10:12:00 01/20/2018 23:59:59 CLS Outpatient ENRIQUETA CHRISTY [facility] RAD RUQ ABD PAIN [id number] 01/19/2018 10:08:00 01/19/2018 23:59:59 CLS Preadmit ENRIQUETA CHRISTY [facility] CARD RUQ ABDOMINAL PAIN [id number] 05/12/2013 09:30:00 05/12/2013 23:59:59 CLS Outpatient ENRIQUETA CHRISTYP [facility] RAD PULMONARY NODULE [id number] 05/31/2018 08:30:00 PEN Preadmit WILMER SINGLETON MD [facility] ENDO DYSPHAGIA [id number] 06/10/2017 09:00:00 06/10/2017 23:59:59 CLS Outpatient ENRIQUETA CHRISTY APRN [facility] [id number] 01/18/2018 14:00:00 Document Registration [id number] 06/10/2017 09:00:00 Document Registration
[2018-05-31] MEDS ORDERED: NS IV 500 ML 500 ML ONE (07:38)
[2018-05-31] MEDS ORDERED: NS IV 500 ML 500 ML IV PRN (07:39)
[2018-05-31] MEDS ORDERED: HURRICAINE EXT TUBE (BENZOCAINE) XX PRN (07:45)
[2018-05-31] MEDS ORDERED: fentaNYL INJECTION 100 MCG/2 ML AMP IVP ONE (07:45)
[2018-05-31] MEDS ORDERED: MIDAZOLAM 2 MG/2 ML (VERSED) VIAL IVP ONE (07:45)
[2018-05-31 07:52] VITALS: BP 100/81
[2018-05-31] MEDS ORDERED: fentaNYL INJECTION 100 MCG/2 ML AMP ONE (08:33)
[2018-05-31] MEDS ORDERED: MIDAZOLAM 2 MG/2 ML (VERSED) VIAL ONE ×7 (08:34→09:16)
[2018-05-31] MEDS ORDERED: HURRICAINE EXT TUBE (BENZOCAINE) ONE (08:34)
--- NOTE | 2018-05-31 08:34 | History & Physicial ---
History of Present Illness History of Present Illness Reason for visit/HPI to undergo an upper endoscopy with possible balloon dilatation, regarding dysphagia Date of Admission 05/31/18 Date Seen by a Provider: May 31, 2018 Time Seen by a Provider: 08:33 I consulted on this patient on 05/31/18 08:33 Attending Physician Kyle Singleton MD Admitting Physician [place] Consult Allergies and Home Medications Allergies Coded Allergies: trazodone (Unverified Adverse Reaction, Unknown, 01/21/18) Home Medications Cyclobenzaprine HCl 10 Mg Tablet, 10 MG PO TID PRN for SPASMS, (Reported) Levothyroxine Sodium 125 Mcg Tablet, 125 MCG PO DAILY, (Reported) Patient Home Medication List Home Medication List Reviewed: Yes Past Ngkquvx-Teqrba-Bvmrwz Hx Patient Social History Marrital Status: Employed/Student: employed Alcohol Use: Denies Use Recreational Drug Use: No Smoking Status: Current Everyday Smoker Type Used: Cigarettes Recent Foreign Travel: No Contact w/other who traveled: No Recent Hopitalizations: No Recent Infectious Disease Expo: No Seasonal Allergies Seasonal Allergies: No Surgeries Yes (C6-C7 FUSION) Gallbladder, Tubal Ligation Respiratory No Cardiovascular No Neurological No Genitourinary No Gastrointestinal No (dysphagia) Musculoskeletal Yes (CHRONIC NECK PAIN) Endocrine History of Endocrine Disorders: Yes Endocrine Disorders: Hypothyroidsim HEENT History of HEENT Disorders: No Cancer No Psychosocial History of Psychiatric Problem: Yes Behavioral Health Disorders: Anxiety, Depression Integumentary History of Skin or Integumenta: No Blood Transfusions History of Blood Disorders: No Review of Systems Constitutional: no symptoms reported EENTM: no symptoms reported Cardiovascular: no symptoms reported Gastrointestinal: see HPI Genitourinary: no symptoms reported Musculoskeletal: no symptoms reported Skin: no symptoms reported Psychiatric/Neurological: No Symptoms Reported Physical Exam Vital Signs Vital Signs - First Documented 05/31/18 07:52 Temp 98.0 Pulse 77 Resp 16 B/P (MAP) 100/81 (87) Pulse Ox 100 O2 Delivery Room Air Capillary Refill : Height, Weight, BMI Height: 5'5.00" Weight: 111lbs. 0.0oz. 50.516027le; 18.5 BMI Method: General Appearance: No Apparent Distress Neck: Normal Inspection Respiratory: Lungs Clear Cardiovascular: Regular Rate, Rhythm Gastrointestinal: Non Tender Neurologic/Psychiatric: Alert, Oriented x3 Skin: Warm/Dry Assessment/Plan Assessment and Plan lady with dysphagia. 4 upper endoscopy with possible balloon dilatation Admission Diagnosis Admission Status: Other (Outpt Proc) KYLE SINGLETON MD May 31, 2018 08:34
--- NOTE | 2018-05-31 08:35 | Conscious Sedation/ASA ---
Conscious Sedation Pre-Proced Time 08:35 ASA Score 2 For ASA 3 and 4: Consider anesthesia and medical clearance. Also, for patients with a history of failed moderate sedation consider anesthesia. Airway Lungs Heart ASA score ASA 1: a normal healthy patient ASA 2: a patient with a mild systemic disease (mid diabetes, controlled hypertension, obesity ASA 3: a patient with a severe systemic disease that limits activity (angina , COPD, prior Myocardial infarction) ASA 4: a patient with an incapacitating disease that is a constant threat to life (CHF, renal failure) ASA 5: a moribund patient not expected to survive 24 hrs. (ruptured aneurysm) ASA 6: a declared brain- patient whose organs are being harvested. For emergent operations, add the letter E after the classification Mallampati Classification Grade 1 Sedation Plan Discussed options with patient/fam The patient is an appropriate candidate to undergo the planned procedure, sedation, and anesthesia. The patient immediately re-assessed prior to indication. KYLE SINGLETON MD May 31, 2018 08:35
--- NOTE | 2018-05-31 09:34 | Endo Procedure Record ---
Endo Procedure Report Date of Procedure Last Colonoscopy: Yes May 31, 2018 Surgeon (s) KYLE SINGLETON MD Post Procedure/Op Diagnosis Hiatal hernia with distal esophageal stricture Procedure Performed EGD with balloon dilatation Description of Procedure Anesthesia Type: Conscious Sedation Specimen(s) collected/removed None Description of the Procedure Indication for the procedure: This lady came in for an upper endoscopy to evaluate dysphagia. Informed consent was obtained after reviewing the procedure in detail. Description for the procedure: She was placed in left lateral position and her vital signs were monitored. Conscious sedation was achieved using versed and fentanyl. The flexible gastroscope was introduced down the esophagus and advanced past the stomach, into the duodenum. Findings: Esophagus: Hiatal hernia with a distal esophageal stricture. It was dilated to 20 mm using a balloon. Stomach and the duodenum were normal She tolerated the procedure well and was taken back to the nursing area in a stable condition. Impression: Dysphagia due to distal esophageal stricture. Balloon dilatation completed. Copy Copies To 1: KRISTIN COFFEY XAVIER M MD May 31, 2018 09:34
--- NOTE | 2018-05-31 09:36 | Discharge Inst-Simple/Standard ---
Discharge Inst-Standard Discharge Medications New, Converted or Re-Newed RX: Other Patient Instructions/Follow Up Plan of Care/Instructions/FU: please call for Protonix 40 mg daily for 30 days with 5 refills to her pharmacy. Follow-up with her primary Activity as Tolerated: Yes Discharge Diet: No Restrictions KYLE SINGLETON MD May 31, 2018 09:36
[2018-05-31 10:00] VITALS: BP 108/55
[2018-05-31 10:30] VITALS: BP 90/45
[2018-05-31 10:40] VITALS: BP 90/45
== END 2018-05-31 10:40 | disposition home or self-care (01) ==
LOC: ENDO 07:26
PROVIDERS: ATTEND Surgery
DX: K22.2 Esophageal obstruction (principal); K44.9 Diaphragmatic hernia without obstruction or gangrene; E03.9 Hypothyroidism, unspecified; F41.9 Anxiety disorder, unspecified; F32.9 Major depressive disorder, single episode, unspecified; F17.210 Nicotine dependence, cigarettes, uncomplicated; Z98.1 Arthrodesis status; Z79.899 Other long term (current) drug therapy
CPT/HCPCS: 84703

== ENCOUNTER → 2019-01-13 | Outpatient (CLI) | payer BC ==
--- NOTE | 2019-01-14 15:19 | Diagnostic Imaging Report ---
EXAMINATION: Digital mammogram bilateral diagnostic. The current study was also evaluated with a Computer Aided Detection (CAD) system. 3-D tomosynthesis was also performed and reviewed. INDICATION: Abnormal screening mammogram. FINDINGS: The screening mammogram performed on 12/31/2018 noted microcalcifications scattered throughout both breasts. There was a cluster of microcalcifications in the inner aspect of the left breast at anterior depth. Compression/magnification views of this area show that there are number of microcalcifications in this region. The appearance of these calcifications is technically indeterminate. I would recommend that a stereotactic biopsy be performed to exclude malignancy. There is another group of microcalcifications in the superior aspect of the left breast in the retroareolar region. These are not as tightly clustered as the other group. However if the biopsy results of the first group of microcalcifications proves to be positive for malignancy, then biopsy of this group would also be recommended. Otherwise, a six-month follow-up mammogram of the left breast should be obtained. The screening mammogram also identified a small cluster of microcalcifications in the medial retroareolar region of the right breast. These lie at approximately the level of the nipple. These too are indeterminate in appearance and should be biopsied using stereotactic device. IMPRESSION: 1. The groups of microcalcifications in the inferomedial area of the left breast and the medial retroareolar region of the right breast are technically indeterminate. Stereotactic biopsy would be recommended to exclude malignancy. 2. The other group of calcifications in the upper-inner aspect of the left breast is not as suspicious. Recommendations as above. 3. These results will be called to [facility]. ACR BI-RADS Category 4: Suspicious abnormality. Result letter will be mailed to the patient. Note: At least 10% of breast cancer is not imaged by mammography. Dictated by: Dictated on workstation # [id number]
== END ==
LOC: RAD 08:39
PROVIDERS: ATTEND Nurse Practitioner Community Health
DX: R92.0 Mammographic microcalcification found on diagnostic imaging of breast (principal)
CPT/HCPCS: 77066

== ENCOUNTER → 2019-02-02 | Outpatient (CLI) | payer BC ==
[~2019-02-02] VITALS: Ht 165.1 cm; Wt 53.6 kg
[~2019-02-02] MED LIST changes: +LIDOCAINE 1% INJ 20 ML 20 ML VIAL INJ ONE; +LIDOCAINE 1% INJ 20 ML 20 ML VIAL ONE
[2019-02-02 14:07] VITALS: BP 104/65
[2019-02-02 14:15] VITALS: BP 107/67
[2019-02-02 14:20] VITALS: BP 109/62
[2019-02-02 14:25] VITALS: BP 112/74
[2019-02-02 14:30] VITALS: BP 110/73
[2019-02-02 14:35] VITALS: BP 112/65
--- NOTE | 2019-02-02 14:57 | NUR ---
Spoke to [place] RN at [facility]. Notified her of patient's syncopal episode during stereotactic breast biopsy procedure and Dr. Jack's recommendations to send patient to [place] to have the biopsy performed with patient supine on table.
--- NOTE | 2019-02-02 15:59 | Diagnostic Imaging Report ---
INDICATION: Right breast calcifications. Patient presents for stereotactic biopsy. TECHNIQUE: The patient was brought to the stereotactic suite and placed in a chair in the sitting upright position. The right breast was positioned in the craniocaudal manner. The cluster of microcalcifications in the medial retroareolar right breast was stereotactically targeted. The superior right breast was prepped and draped in the usual sterile fashion. A small amount of 1% lidocaine was utilized for local anesthesia. An 8 gauge needle was advanced into the right breast per stereotactic coordinates. At this time, the patient reported feeling hot and lightheaded. The patient then became syncopal. The needle was quickly removed and pressure was applied. The patient was placed in a Trendelenburg position. The patient quickly recovered. The procedure was terminated at this time. IMPRESSION: The stereotactic biopsy of the right breast was terminated due to the patient experiencing a vasovagal episode with syncope. After discussion with the patient, it was decided that the patient should undergo stereotactic biopsy at another facility that has a stereotactic table in which the patient could be placed prone. The patient agreed. Dictated by: Dictated on workstation # [id number]
== END ==
LOC: RAD 01-31 09:25
PROVIDERS: ATTEND Nurse Practitioner Community Health
DX: R92.1 Mammographic calcification found on diagnostic imaging of breast (principal)
CPT/HCPCS: 19081

== ENCOUNTER 2019-03-01 05:37 | Outpatient (CLI) | payer BC ==
[~2019-03-01] VITALS: Ht 165.1 cm; Wt 52.7 kg
[~2019-03-01 05:37] MED LIST changes: -LIDOCAINE 1% INJ 20 ML 20 ML VIAL INJ ONE; -LIDOCAINE 1% INJ 20 ML 20 ML VIAL ONE
[2019-03-01] MEDS ORDERED: DESV50TA PO (09:21)
[2019-03-02] MEDS ORDERED: ACHD5005 PO (12:16)
== END 2019-03-01 09:36 | disposition home or self-care (01) ==
LOC: PREOP 05:37
PROVIDERS: ATTEND Surgery
DX: Z01.818 Encounter for other preprocedural examination (principal)

== ENCOUNTER 2020-06-14 05:36 | Outpatient (RCR) | payer BC ==
[~2020-06-14] VITALS: Ht 165 cm; Wt 61.0 kg
[~2020-06-14 05:36] MED LIST changes: +DESV50TA PO
== END 2020-06-14 14:49 | disposition home or self-care (01) ==
LOC: PREOP 05:36
PROVIDERS: ATTEND Surgery
DX: Z01.812 Encounter for preprocedural laboratory examination (principal); Z20.822 Contact with and (suspected) exposure to COVID-19; Z86.010 Personal history of colon polyps
CPT/HCPCS: 87635

== ENCOUNTER 2020-06-18 09:27 | Day surgery (SDC) | payer BC ==
[~2020-06-18] VITALS: Ht 165.1 cm; Wt 61.0 kg
[~2020-06-18 09:27] MED LIST changes: +LACTATED RINGERS 1,000 ML IV ONE
[2020-06-18] MEDS ORDERED: LACTATED RINGERS 1,000 ML IV STA (09:32)
[2020-06-18 09:44] VITALS: BP 105/70
--- NOTE | 2020-06-18 10:17 | Progress Note-Pre Operative ---
Pre-Operative Progress Note H&P Reviewed The H&P was reviewed, patient examined and no changes noted. Time Seen by Provider: 10:15 Date H&P Reviewed: Jun 18, 2020 Time H&P Reviewed: 10:15 Pre-Operative Diagnosis: Hx of polyps BREANNA SANDERS DO Jun 18, 2020 10:17
[2020-06-18] MEDS ORDERED: MIDAZOLAM 2 MG/2 ML (VERSED) VIAL ONE (10:54)
[2020-06-18] MEDS ORDERED: PROPOFOL INJECTION 50 ML IV ONE (10:54)
[2020-06-18 11:25] VITALS: BP 117/68
[2020-06-18 11:30] VITALS: BP 113/60
[2020-06-18 11:35] VITALS: BP_SYST 109; BP_SYST 121; BP_DIAS 55; BP_DIAS 71
--- NOTE | 2020-06-18 12:02 | Progress Note-Post Operative ---
Post-Operative Progess Note Surgeon (s)/Catalytic Converter Operator (s) Surgeon BREANNA SANDERS DO Catalytic Converter Operator: DAIANA Pope Pre-Operative Diagnosis Hx of polyps Post-Operative Diagnosis polyps int hemorrhoids Procedure & Operative Findings Date of Procedure 06/18/20 Procedure Performed/Findings colon with snare Anesthesia Type IV sedation by RECYCLING MANAGER Estimated Blood Loss Estimated blood loss (mL): scant Specimens/Packing Specimens Removed sigmoid polyp asc colon polyp transverse colon polyp BREANNA SANDERS DO Jun 18, 2020 12:02
--- NOTE | 2020-06-18 12:03 | Endoscopy Discharge Instruct ---
Endo Procedure/Findings Findings 1.: Polyp 2.: Internal Hemorrhoids Discharge Instructions - Activity: You might feel a little sleepy until tomorrow. This is due to the medicine you received to relax you. Until tomorrow, you should: NOT drive a car, operate machinery or power tools. NOT drink any alcoholic beverages. NOT make any important decisions or sign importortant papers. Do not return to work until tomorrow, unless otherwise instructed. Resume previous activities tomorrow. Diet: Start by taking liquids. If you tolerate liquids, advance to solid food. 1.: Colonscopy in 5 years Notify Physician - If you experience excessive bleeding, unusual abdominal pain, fever, or chest pain, contact your doctor immediately. BREANNA SANDERS DO Jun 18, 2020 12:03
[2020-06-18 12:05] VITALS: BP 107/52
[2020-06-18 12:10] VITALS: BP 107/52
--- NOTE | 2020-06-18 12:52 | Anesthesia-General Post-Op ---
MAC Patient Condition Mental Status/LOC: Same as Preop Cardiovascular: Satisfactory Nausea/Vomiting: Absent Respiratory: Satisfactory Pain: Controlled Complications: Absent Post Op Complications Complications None Follow Up Care/Instructions Patient Instructions None needed. Anesthesiology Discharge Order Discharge Order Patient is doing well, no complaints, stable vital signs, no apparent adverse anesthesia problems. No complications reported per nursing. FRED CARTER CRNA Jun 18, 2020 12:52
--- NOTE | 2020-06-19 02:31 | OPERATIVE REPORT ---
DATE OF SERVICE: PREOPERATIVE DIAGNOSIS: History of colon polyps. POSTOPERATIVE DIAGNOSES: Colon polyps, internal hemorrhoids. PROCEDURE: Colonoscopy with snare polypectomy. SURGEON: Randal Spence DO MACHINE STEMMER: HANNAH Pope. ANESTHESIA: IV sedation by the COMPENSATOR WORKER. SPECIMEN: Sigmoid polyp, ascending colon polyp, and transverse colon polyp. BLOOD LOSS: Scant. FLUIDS: Per anesthesia. POSTOPERATIVE CONDITION: Stable. INDICATION FOR PROCEDURE: The patient is a 44-year-old female who has a history of colon polyps, needed a workup. FINDINGS: The patient had three polyps, one in the sigmoid colon, one in the ascending colon and one in the transverse colon. She also had some internal hemorrhoids. PROCEDURE NOTE: After informed consent was obtained, the patient was brought to the endoscopy suite, placed in bed in left lateral decubitus position. She was administered IV sedation by the COMPENSATOR WORKER who then monitored her vitals the entire time, heart rate, blood pressure and pulse ox and the scope was inserted, pushed all the way about 100 cm, able to get to the cecum, but on the way in, noted a polyp in the sigmoid colon, did a snare polypectomy of this, continued all the way to cecum, took a picture of appendiceal orifice, noted the ileocecal valve, took a picture and then slowly withdrew the scope and just outside the cecum, saw another flat large polyp, did another snare polypectomy of this and then continued up to the hepatic flexure, then down the transverse colon, splenic flexure. In the transverse colon, saw another polyp, did another snare polypectomy of this and then once we got to the splenic flexure and went down into the descending colon, finally into the sigmoid and then into the rectum, retroflexed in the rectal vault, saw some minimal internal hemorrhoids, took a picture of this and then removed the scope. The patient tolerated the procedure. She was recovered in endoscopy suite. Job ID: [id number] DocumentID: [id number] Dictated Date: 06/18/2020 19:22:52 Construction Tech Date: 06/19/2020 02:30:14 Dictated By: RANDAL SPENCE DO [facility]
== END 2020-06-18 12:10 | disposition home or self-care (01) ==
LOC: ENDO 09:27
PROVIDERS: ATTEND Surgery
DX: D12.5 Benign neoplasm of sigmoid colon (principal); D12.3 Benign neoplasm of transverse colon; D12.2 Benign neoplasm of ascending colon; K64.8 Other hemorrhoids; F41.9 Anxiety disorder, unspecified; F32.9 Major depressive disorder, single episode, unspecified; K21.9 Gastro-esophageal reflux disease without esophagitis; G89.29 Other chronic pain; E03.9 Hypothyroidism, unspecified; F17.210 Nicotine dependence, cigarettes, uncomplicated; Z79.899 Other long term (current) drug therapy; Z88.1 Allergy status to other antibiotic agents; Z88.8 Allergy status to other drugs, medicaments and biological substances; Z86.010 Personal history of colon polyps; Z80.0 Family history of malignant neoplasm of digestive organs; Z80.1 Family history of malignant neoplasm of trachea, bronchus and lung
CPT/HCPCS: 84703

== ENCOUNTER → 2020-09-13 | Outpatient (CLI) | payer BC ==
[~2020-09-13] MED LIST changes: -LACTATED RINGERS 1,000 ML IV ONE
--- NOTE | 2020-09-13 14:18 | Diagnostic Imaging Report ---
Indication: Bilateral breast calcifications, status post surgical excisional biopsy. Correlation is made with prior mammograms dating back to 2019. 2-D and 3-D bilateral diagnostic mammography was performed with CAD. Both breasts are heterogeneously dense, limiting the sensitivity of mammography. The overall number of calcifications in both breasts has decreased, status post surgical biopsy. No new mass or malignant appearing microcalcifications are seen. Axillae are unremarkable. IMPRESSION: BI-RADS Category 2 No mammographic features suspicious for malignancy are identified. ACR BI-RADS Category 2: Benign findings. Result letter will be mailed to the patient. Note: At least 10% of breast cancer is not imaged by mammography. Dictated by: Dictated on workstation # [id number]
== END ==
LOC: RAD 13:33
PROVIDERS: ATTEND Physician Assistant
DX: R92.1 Mammographic calcification found on diagnostic imaging of breast (principal)
CPT/HCPCS: 77066; G0279; 77062

== ENCOUNTER 2021-12-30 08:20 | Emergency (ER) | payer BC ==
[~2021-12-30] VITALS: Ht 165.1 cm; Wt 52.2 kg
[~2021-12-30 08:20] MED LIST changes: +CYCL10TA25 PO; -CYCL10TA9 PO
[2021-12-30 08:36] VITALS: BP 142/100
--- NOTE | 2021-12-30 09:06 | ED EENT ---
History of Present Illness General Chief Complaint: Dental Problems/Pain Stated Complaint: TOOTH ABCESS Nursing Triage Note: PT AMB TO [facility] WITH COMPLAINT OF DENTAL ABSCESS. STATES SWELLING STARTED THURSDAY AND WENT TO WALK IN YESTERDAY. RECEIVED ROCEPHIN SHOT AND AMOXICILLIN YESTERDAY. WAS SENT HERE TODAY TO GET IV ANTIBIOTICS. Source: patient Exam Limitations: no limitations History of Present Illness Date Seen by Provider: Dec 30, 2021 Time Seen by Provider: 08:42 Initial Comments Patient to the ER by private conveyance from dentist office with chief complaint of swelling and pain in her right face related to a dental abscess. She started antibiotics yesterday amoxicillin and was given a gram of Rocephin. She not having any fevers chills difficulty breathing or nausea or vomiting. She saw the dental assistant inventory manager today and was told with the dentist to not be until tomorrow and she should go to the ER for IV antibiotics. No immunocompromise. Allergies and Home Medications Allergies Coded Allergies: trazodone (Verified Adverse Reaction, Unknown, 05/31/18) Patient Home Medication List Home Medication List Reviewed: Yes Desvenlafaxine Succinate (Pristiq ER) 50 Mg Tab.er.24h, 50 MG PO DAILY, (Reported) Entered as Reported by: SRIRAM PAZ on 03/01/19 0921 Levothyroxine Sodium (Levothyroxine Sodium) 125 Mcg Tablet, 125 MCG PO DAILY, (Reported) Entered as Reported by: SRIRAM PAZ on 05/27/18 0948 Review of Systems Review of Systems Constitutional: No chills, No diaphoresis Eyes: Denies Blindness, Denies Drainage Ears: Denies Pain, Denies Bloody Discharge Nose: denies clots, denies congestion Mouth: see HPI Throat: no symptoms reported Respiratory: no symptoms reported Cardiovascular: no symptoms reported All Other Systems Reviewed Negative Unless Noted: Yes Past Ukvcjpd-Qrrvau-Mcgzmr Hx Patient Social History Tobacco Use?: Yes Tobacco type used: Cigarettes Smoking Status: Current Everyday Smoker Use of E-Cig and/or Vaping dev: No Substance use?: No Alcohol Use?: No Pt feels they are or have been: No Seasonal Allergies Seasonal Allergies: No Past Medical History Surgeries: Yes (C6-C7 FUSION) Gallbladder, Tubal Ligation Respiratory: No Currently Using CPAP: No Currently Using BIPAP: No Cardiac: No Neurological: No Genitourinary: No Gastrointestinal: No Gastroesophageal Reflux Musculoskeletal: Yes (CHRONIC NECK PAIN) Endocrine: Yes Hypothyroidsim HEENT: No Cancer: No Psychosocial: Yes Anxiety, Depression Integumentary: No Blood Disorders: No Physical Exam Vital Signs Vital Signs - First Documented 12/30/21 08:36 Temp 36.6 Pulse 69 Resp 16 B/P (MAP) 142/100 (114) Pulse Ox 99 O2 Delivery Room Air Height, Weight, BMI Height: 5'5.00" Weight: 111lbs. 0.0oz. 50.039788sz; 19.00 BMI Method: General Appearance: WD/WN, mild distress Eyes: bilateral eye normal inspection, bilateral eye PERRL, bilateral eye EOMI Ears: bilateral ear auricle normal, bilateral ear canal normal, bilateral ear TM normal Nose: normal inspection (No exudate or mucopurulence seen. Erythematous congested mucosa noted.) Mouth/Throat: other (Dental caries especially on the right upper maxillary teeth with gingival swelling and swelling of the buccal tissues without any palpable fluctuance. No pointing.) Neck: full range of motion, supple, normal inspection Cardiovascular: normal peripheral pulses, regular rate, rhythm Respiratory: no respiratory distress, no accessory muscle use Progress/Results/Core Measures Results/Orders My Orders Orders - AKSHAT ADAMS Ceftriaxone (Rocephin) (12/30/21 09:15) Lidocaine 1% Inj 20 Ml (Xylocaine 1% Inj (12/30/21 09:15) Vital Signs/I&O 12/30/21 08:36 Temp 36.6 Pulse 69 Resp 16 B/P (MAP) 142/100 (114) Pulse Ox 99 O2 Delivery Room Air 2 Blood Pressure Mean: 114 Progress Progress Note : Time: 09:04 Progress Note Odontogenic cellulitis with a septic vital signs. Plan to give her a gram of Rocephin IM and tell her to continue her amoxicillin. Warm compresses. Departure Impression Primary Impression: Dental abscess Additional Impression: Facial cellulitis Disposition: 01 HOME, SELF-CARE Condition: Stable Departure-Patient Inst. Decision time for Depature: 09:05 Referrals: [facility] (PCP/Family) Primary Care Physician Patient Instructions: Cellulitis (Skin Infection), Adult (DC) Add. Discharge Instructions: Continue to use your antibiotics. Drink plenty of fluids. Tylenol 1000 mg every 8 hours as needed for pain. Ibuprofen 800 mg every 8 hours needed for pain. Warm compresses as necessary for pain. Do not smoke right now. Return to the ER for intractable vomiting, high fever above 102.5, difficulty swallowing or shortness of air. Make a follow-up appointment in a week to 2 weeks with your dentist All discharge instructions reviewed with patient and/or family. Voiced understanding. Work/School Note: Work Release Form Date Seen in the Emergency Department: Dec 30, 2021 Return to Work: Dec 31, 2021 Restrictions: No Restrictions AKSHAT ADAMS Dec 30, 2021 09:06
[2021-12-30] MEDS ORDERED: LIDOCAINE 1% INJ 10 ML VIAL ONE (09:12)
[2021-12-30] MEDS ORDERED: cefTRIAXone 1,000 MG VIAL IM ONE (09:15)
[2021-12-30] MEDS ORDERED: LIDOCAINE 1% INJ 20 ML VIAL INJ ONE (09:15)
== END 2021-12-30 09:31 | disposition home or self-care (01) ==
LOC: EDUNIT# 08:20 → ER 08:24
DX: K04.7 Periapical abscess without sinus (principal); L03.211 Cellulitis of face; F17.210 Nicotine dependence, cigarettes, uncomplicated
CPT/HCPCS: 99284